=== PATIENT | female | born 1935 | race Caucasian/White ===

== ENCOUNTER 2017-08-07 21:18 | Emergency (ER) | payer MEDICARE ==
[2017-08-07] MEDS ORDERED: ONDANSETRON 4 MG/2 ML VIAL IVP STA (22:22)
[2017-08-07] MEDS ORDERED: SODIUM CHLORIDE 0.9% 1,000 ML IV STA (22:22)
[2017-08-07] MEDS ORDERED: PANTOPRAZOLE 40 MG/10 ML VIAL IVP STA (22:22)
[2017-08-07] MEDS ORDERED: SODIUM CHLORIDE 0.9% 500 ML IV STA (22:22)
[2017-08-07 22:38] LABS: Basophils % (A) 1 %; Eosinophils % (A) 1 %; HCT 35.2 % (34.0-46.0); HGB 11.7 gm/dL (11.4-16.0); Lymphocytes # (A) 0.9 k/uL (1.0-4.8); Lymphocytes % (A) 29 %; MCH 28.9 pg (25.0-35.0); MCHC 33.3 g/dL (31.0-37.0); MCV 86.9 fL (80.0-100.0); Mean Platelet Volume 7.9; Monocytes # (A) 0.2 k/uL (0-1.0); Monocytes % (A) 5 %; Neutrophils # (A) 1.9 k/uL (1.3-7.7); Neutrophils % (A) 62 %; Platelet Count 153 k/uL (150-450); RBC 4.05 m/uL (3.80-5.40); RDW 14.6 % (11.5-15.5)
[2017-08-07 22:42] LABS: Appearance,Urine Clear (Clear); Bilirubin,Urine Negative (Negative); Blood,Urine Negative (Negative); Color,Urine Colorless; Glucose,Urine (UA) Negative (Negative); Ketones,Urine Negative (Negative); Leukocyte Esterase,Urine Negative (Negative); Nitrite,Urine Negative (Negative); Protein,Urine Negative (Negative); Specific Gravity,Urine 1.002 (1.001-1.035); Urobilinogen,Urine <2.0 mg/dL (<2.0)
[2017-08-07 22:48] LABS: ALT 39 U/L (9-52); AST 28 U/L (14-36); Albumin 4.2 g/dL (3.5-5.0); Alkaline Phosphatase 90 U/L (38-126); Amylase 34 U/L (30-110); Anion Gap 10 mmol/L; Blood Urea Nitrogen 10 mg/dL (7-17); Carbon Dioxide 28 mmol/L (22-30); Chloride 95 mmol/L (98-107); Glucose 113 mg/dL (74-99); Lipase 57 U/L (23-300); Sodium 133 mmol/L (137-145); Total Bilirubin 0.6 mg/dL (0.2-1.3)
[2017-08-07 22:50] LABS: Potassium 4.2 mmol/L (3.5-5.1)
--- NOTE | 2017-08-07 23:16 | XR ---
EXAMINATION TYPE: XR abdomen 2V DATE OF EXAM: 08/07/2017 COMPARISON: NONE HISTORY: Abdominal pain TECHNIQUE: 3 views FINDINGS: There is no sign of intestinal obstruction or pneumoperitoneum. Fecal pattern is normal. Mansi ng bases are clear. There are clips from cholecystectomy. There is no sign of a mass. There is modera te osteoarthritis in the right hip joint. IMPRESSION: Nonacute abdomen.
--- NOTE | 2017-08-07 23:33 | ED ---
General Adult HPI - General Chief complaint: Abdominal Pain Stated complaint: Diarrhea Time Seen by Provider: 08/07/17 21:59 Source: patient, family, RN notes reviewed, old records reviewed Mode of arrival: ambulatory Limitations: no limitations - History of Present Illness Initial comments: Chief complaint and history of present illness this 82-year-old female who is admittedly anxious. She does have a history of irritable bowel syndrome. Lately she's been taking prunes make herself go. She has 2 complaints, she goes to often other times she feels like she has to go and she cannot go on her own. She also reports that she sneezed yesterday causing low back discomfort. Patient is able to control her muscles to release the urine. Patient also reports she's had slight nasal congestion no fever. - Related Data Home Medications Medication Instructions Recorded Confirmed ALPRAZolam [Xanax] 0.25 - 0.5 mg PO TID PRN 11/10/15 12/05/15 Acetaminophen Tab [Tylenol] 325 mg PO Q6H PRN 11/10/15 12/05/15 Arnicare Cream 1 applic TOPICAL TID PRN 11/10/15 12/05/15 Arnicare Dissolving Tab 1 tab PO BID PRN 11/10/15 12/05/15 Cholecalciferol [Vitamin D3] 5,000 unit PO DAILY 11/10/15 12/05/15 Dicyclomine HCl 10 mg PO BID 11/10/15 12/05/15 Multivitamin/Iron/Folic Acid 1 tab PO DAILY 11/10/15 12/05/15 [Centrum Complete Multivit Tab] Omeprazole 40 mg PO AC-BRKFST 11/10/15 12/05/15 Prevident 5000 Paste 1 applic PO HS 11/10/15 12/05/15 Vit C/E/Zn/Coppr/Lutein/Zeaxan 1 cap PO BID 11/10/15 12/05/15 [Preservision Areds 2 Softgel] cycloSPORINE [Restasis] 1 drop BOTH EYES BID 11/10/15 12/05/15 Clobetasol Propionate/Emoll 1 applic TOPICAL DAILY 12/05/15 12/05/15 [Temovate Emollient 0.05% Crm] Estrogens, Conjugated Cream 1 applic VAGINAL MOWEFR PRN 12/05/15 12/05/15 [Premarin Cream] L.acidoph,Paracasei, B.lactis 1 cap PO DAILY 12/05/15 12/05/15 [Probiotic] Nystatin/Triamcin 1 applic TOPICAL BID 12/05/15 12/05/15 [Nystatin-Triamcinolone Cream] Previous Rx's Medication Instructions Recorded Melatonin 3 mg PO HS tab 12/06/15 PARoxetine [Paxil] 10 mg PO DAILY #30 tab 12/06/15 cloNIDine 0.1 MG/24HR PATCH 1 patch TRANSDERM MO #10 patch 12/06/15 [Catapres-TTS] Allergies Allergy/AdvReac Type Severity Reaction Status Date / Time amlodipine besylate Allergy Unknown Verified 08/07/17 21:35 [From Norvasc] atorvastatin calcium Allergy Unknown Verified 08/07/17 21:35 [From Lipitor] citalopram hydrobromide Allergy Unknown Verified 08/07/17 21:35 [From Celexa] clonazepam [From Klonopin] Allergy Unknown Verified 08/07/17 21:35 lisinopril [From Prinivil] Allergy Unknown Verified 08/07/17 21:35 moxifloxacin HCl Allergy Unknown Verified 08/07/17 21:35 [From Avelox] Penicillins Allergy Unknown Verified 08/07/17 21:35 simvastatin Allergy Unknown Verified 08/07/17 21:35 Sulfa (Sulfonamide Allergy Unknown Verified 08/07/17 21:35 Antibiotics) Tetracyclines Allergy Unknown Verified 08/07/17 21:35 aspirin AdvReac Unknown Verified 08/07/17 21:35 muscle relaxors Allergy Unknown Uncoded 08/07/17 21:35 Review of Systems ROS Statement: Those systems with pertinent positive or pertinent negative responses have been documented in the HPI. You have systems. No headache or visual acuity changes. She has had some congestion. Denies fever. Denies any chest pain or shortness of breath. She denies abdominal cramping but she states that she has not been able to have a bowel movement but that alternates that with having loose stool. Patient states that she stands and walks he feels as though she has stool bearing down but when she tries to have a bowel movement she can't or doesn't. She has tried an enema at home. Nausea no vomiting. All systems were reviewed. 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 GERD, hypertension, osteoarthritis, vertigo, Sjogren's. Her surgeries include benign breast biopsy , cholecystectomy, partial hysterectomy, right shoulder knees arthroscopies. She's also had tonsillectomy. Family history of cancers include: Breast and bone. Patient is nonsmoker nondrinker. Multiple ALLERGIES as listed on the hard copy. ROS Other: All systems not noted in ROS Statement are negative. Past Medical History Past Medical History: Cancer, GERD/Reflux, Hypertension, Osteoarthritis (OA) Additional Past Medical History / Comment(s): vertigo, Sjogren's Syndrome, leaky valve, fibromyalgia, IBS, Trigeminal neuralgia,difficulty swallowing large pills, stress test done 12-04-15 CURRENTLY (12-05-15) HAS RASH ROEL LEGS ARMS STATED" ONLY THING DIFFERENT IS THAT SHE STARTED ON A PATCH FOR BP",pne vaccine few years ago not sure of date-dr office closed not able to verify date. History of Any Multi-Drug Resistant Organisms: None Reported Past Surgical History: Breast Surgery, Cholecystectomy, Hysterectomy, Orthopedic Surgery, Tonsillectomy Past Anesthesia/Blood Transfusion Reactions: No Reported Reaction, Motion Sickness Additional Past Anesthesia/Blood Transfusion Reaction / Comment(s): " a little goes a long way", clausterphobia Past Psychological History: Anxiety Smoking Status: Never smoker Past Alcohol Use History: None Reported Past Drug Use History: None Reported - Past Family History Mother Family Medical History: CVA/TIA Father Family Medical History: Congestive Heart Failure (CHF), Dementia General Exam - General Exam Comments Initial Comments: General: The patient is awake and alert, totally anxious because of health concerns. History of irritable bowel syndrome. Complains of both loose stool and difficulty having bowel movements at the same time. Mild nasal congestion and anxiety. Vital signs shows temperature 97.0 pulse 85 respiratory rate 20 pulse ox 90% room air blood pressure initially 183/95 this be repeated. Eye: Pupils are equal, round and reactive to light, extra-ocular movements are intact ; there is normal conjunctiva bilaterally. No signs of icterus. Ears, nose, mouth and throat: There are moist mucous membranes and no oral lesions. Signs of congestion. Neck: The neck is supple, there is no tenderness . Cardiovascular: There is a regular rate and rhythm. No murmur, rub or gallop is appreciated. Respiratory: Lungs are clear to auscultation, respirations are non-labored, breath sounds are equal. No wheezes, stridor, rales, or rhonchi. Gastrointestinal: Soft, non-distended, non-tender abdomen without masses or organomegaly noted. There is no rebound or guarding present. Bowel sounds are unremarkable. Examination done with the assistance of registered nurse to call. No stool or impaction in the rectum. Back: Neck musculoskeletal back pain. History of fibromyalgia Musculoskeletal: Normal ROM, no tenderness, There is no pedal edema. There is no calf tenderness or swelling. Sensation intact. Pulses equal bilaterally 2+. Neurological: No complaint of any focal or lateralizing findings. Skin: Skin is warm and dry and no rashes or lesions are noted. Psychiatric: History of anxiety. Limitations: no limitations Course Vital Signs 08/07/17 08/07/17 08/08/17 21:31 21:56 00:09 Temperature 97 F L 97.9 F Pulse Rate 78 85 84 Respiratory 20 20 18 Rate Blood Pressure 214/97 183/95 172/84 O2 Sat by Pulse 98 98 99 Oximetry Medical Decision Making - Medical Decision Making Medical decision making; this is a 82-year-old female here with a complaint of needing have a bowel movement and alternating with diarrhea. Patient also reports she coughed and strained her back. She is admittedly anxious. She's had diarrhea for approximately on-again off-again 5 days nausea no vomiting. She also complains of some congestion. Tray the abdomen was done reviewed by radiologist his impression is; there is no sign of intestinal obstruction or pneumoperitoneum. Fecal pattern is normal. Lung bases are clear. There are clips from cholecystectomy. There is no sign of a mass. There is moderate osteoarthritis in the right hip joint. As read by Dr. Nunez Was given a Therevac which she was not able to retain Moran. She'll be started on milk of magnesia this evening and told take it twice daily until effective. She states in the past when she tried magnesium citrate she just threw it up. - Lab Data Result diagrams: 08/07/17 21:50 08/07/17 21:50 Lab Results 08/07/17 08/07/17 08/07/17 Range/Units 21:50 21:50 21:50 WBC 3.0 L (3.8-10.6) k/uL RBC 4.05 (3.80-5.40) m/uL Hgb 11.7 (11.4-16.0) gm/dL Hct 35.2 (34.0-46.0) % MCV 86.9 (80.0-100.0) fL MCH 28.9 (25.0-35.0) pg MCHC 33.3 (31.0-37.0) g/dL RDW 14.6 (11.5-15.5) % Plt Count 153 (150-450) k/uL Neutrophils % 62 % Lymphocytes % 29 % Monocytes % 5 % Eosinophils % 1 % Basophils % 1 % Neutrophils # 1.9 (1.3-7.7) k/uL Lymphocytes # 0.9 L (1.0-4.8) k/uL Monocytes # 0.2 (0-1.0) k/uL Eosinophils # 0.0 (0-0.7) k/uL Basophils # 0.0 (0-0.2) k/uL Sodium 133 L (137-145) mmol/L Potassium 4.2 (3.5-5.1) mmol/L Chloride 95 L (98-107) mmol/L Carbon Dioxide 28 (22-30) mmol/L Anion Gap 10 mmol/L BUN 10 (7-17) mg/dL Creatinine 0.60 (0.52-1.04) mg/dL Est GFR (MDRD) Af Amer >60 (>60 ml/min/1.73 sqM) Est GFR (MDRD) Non-Af >60 (>60 ml/min/1.73 sqM) Glucose 113 H (74-99) mg/dL Plasma Lactic Acid Severiano 0.8 (0.7-2.0) mmol/L Calcium 9.0 (8.4-10.2) mg/dL Total Bilirubin 0.6 (0.2-1.3) mg/dL AST 28 (14-36) U/L ALT 39 (9-52) U/L Alkaline Phosphatase 90 (38-126) U/L Total Protein 7.0 (6.3-8.2) g/dL Albumin 4.2 (3.5-5.0) g/dL Amylase 34 (30-110) U/L Lipase 57 (23-300) U/L Urine Color Urine Appearance (Clear) Urine pH (5.0-8.0) Ur Specific [place] (1.001-1.035) Urine Protein (Negative) Urine Glucose (UA) (Negative) Urine Ketones (Negative) Urine Blood (Negative) Urine Nitrite (Negative) Urine Bilirubin (Negative) Urine Urobilinogen (<2.0) mg/dL Ur Leukocyte Esterase (Negative) 08/07/ Range/Units 22:30 WBC (3.8-10.6) k/uL RBC (3.80-5.40) m/uL Hgb (11.4-16.0) gm/dL Hct (34.0-46.0) % MCV (80.0-100.0) fL MCH (25.0-35.0) pg MCHC (31.0-37.0) g/dL RDW (11.5-15.5) % Plt Count (150-450) k/uL Neutrophils % % Lymphocytes % % Monocytes % % Eosinophils % % Basophils % % Neutrophils # (1.3-7.7) k/uL Lymphocytes # (1.0-4.8) k/uL Monocytes # (0-1.0) k/uL Eosinophils # (0-0.7) k/uL Basophils # (0-0.2) k/uL Sodium (137-145) mmol/L Potassium (3.5-5.1) mmol/L Chloride (98-107) mmol/L Carbon Dioxide (22-30) mmol/L Anion Gap mmol/L BUN (7-17) mg/dL Creatinine (0.52-1.04) mg/dL Est GFR (MDRD) Af Amer (>60 ml/min/1.73 sqM) Est GFR (MDRD) Non-Af (>60 ml/min/1.73 sqM) Glucose (74-99) mg/dL Plasma Lactic Acid Severiano (0.7-2.0) mmol/L Calcium (8.4-10.2) mg/dL Total Bilirubin (0.2-1.3) mg/dL AST (14-36) U/L ALT (9-52) U/L Alkaline Phosphatase (38-126) U/L Total Protein (6.3-8.2) g/dL Albumin (3.5-5.0) g/dL Amylase (30-110) U/L Lipase (23-300) U/L Urine Color Colorless Urine Appearance Clear (Clear) Urine pH 7.0 (5.0-8.0) Ur Specific [place] 1.002 (1.001-1.035) Urine Protein Negative (Negative) Urine Glucose (UA) Negative (Negative) Urine Ketones Negative (Negative) Urine Blood Negative (Negative) Urine Nitrite Negative (Negative) Urine Bilirubin Negative (Negative) Urine Urobilinogen <2.0 (<2.0) mg/dL Ur Leukocyte Esterase Negative (Negative) Disposition Clinical Impression: Irritable bowel syndrome with both constipation and diarrhea Disposition: HOME SELF-CARE Condition: Stable Instructions: Irritable Bowel Syndrome (ED), Nutrition Tips for Relief of Diarrhea (ED), Constipation (ED) Additional Instructions: Take milk of magnesia twice daily until effective. Increase fluid intake. Follow-up family physician Referrals: Sandro Rosen MD [Primary Care Provider] - 1-2 days Time of Disposition: 00:16
[2017-08-07] MEDS ORDERED: DOCUSATE 283 MG/5 ML ENEMA RECTAL STA (23:38)
[2017-08-08 00:09] VITALS: BP 172/84; PULSE 84; RESP 18; TEMP 97.9
[2017-08-08] MEDS ORDERED: MAGNESIUM HYDROXIDE 2,400 MG/10 ML CUP PO PRN (00:22)
== END 2017-08-08 00:40 | disposition home or self-care (01) ==
LOC: EC 21:18
DX: K58.2 Mixed irritable bowel syndrome (principal); M54.5 Low back pain; K21.9 Gastro-esophageal reflux disease without esophagitis; I10 Essential (primary) hypertension; M19.90 Unspecified osteoarthritis, unspecified site; F41.9 Anxiety disorder, unspecified; Z85.9 Personal history of malignant neoplasm, unspecified; Z79.899 Other long term (current) drug therapy; Z88.8 Allergy status to other drugs, medicaments and biological substances; Z88.0 Allergy status to penicillin; Z88.2 Allergy status to sulfonamides; Z88.6 Allergy status to analgesic agent
CPT/HCPCS: 36415; 80053; 82150; 83605; 83690; 85025; 81003; 87086; 74020; 99284; 96374; 96375; 96361 ×2; J2405; C9113

== ENCOUNTER → 2020-03-22 | Outpatient (CLI) | payer MEDICARE ==
[2020-03-22 13:44] LABS: ALT 26 U/L (4-34); AST 34 U/L (14-36); African American GFR (CKD) >90 (>60 ml/min/1.73 sqM); Albumin 4.3 g/dL (3.5-5.0); Alkaline Phosphatase 98 U/L (38-126); Anion Gap 8 mmol/L; Blood Urea Nitrogen 18 mg/dL (7-17); Calcium 9.1 mg/dL (8.4-10.2); Carbon Dioxide 27 mmol/L (22-30); Chloride 100 mmol/L (98-107); Glucose 141 mg/dL (74-99); Non-African American GFR(CKD) 83 (>60 ml/min/1.73 sqM); Potassium 4.4 mmol/L (3.5-5.1); Sodium 135 mmol/L (137-145); Total Bilirubin 0.5 mg/dL (0.2-1.3); Total Protein 6.7 g/dL (6.3-8.2)
--- NOTE | 2020-03-22 15:52 | FL ---
EXAMINATION TYPE: FL barium swallow w video DATE OF EXAM: 03/22/2020 MODIFIED BARIUM SWALLOW FLUOROSCOPY EXAM CLINICAL HISTORY: Dysphagia. TECHNIQUE: Notified barium swallow study is performed utilizing thin liquid barium, nectar thick liqu id barium, barium thick puree, and barium coated cracker. COMPARISON: None. FINDINGS: The oral and pharyngeal phases show satisfactory initiation and propagation with all modali ties tested. Normal mastication is seen with solid modalities tested. There is no evidence of penet ration or aspiration with any modality tested. No significant pharyngeal residue was appreciated. Total fluoroscopy time 1 minute 36 seconds. IMPRESSION: No evidence of penetration or aspiration. Please refer to speech therapist notes for fu rther details if necessary.
== END | disposition home or self-care (01) ==
LOC: RADFLMAIN 10:46
PROVIDERS: ATTEND Internal Medicine Gastroenterology
DX: R13.10 Dysphagia, unspecified (principal); R53.81 Other malaise
CPT/HCPCS: 74230; 80053; 82607

== ENCOUNTER → 2020-04-02 | Outpatient (CLI) | payer MEDICARE ==
--- NOTE | 2020-04-02 14:27 | CT ---
EXAMINATION TYPE: CT abdomen w con DATE OF EXAM: 04/02/2020 HISTORY: follow up pancreatic cyst CT DLP: 450mGycm Automated Exposure Control for Dose Reduction was Utilized. CONTRAST: CT scan of the abdomen is performed with oral water and with IV Contrast, patient injected with 100 m L of Isovue 300. Pancreas protocol. COMPARISON: MRI abdomen December 11, 2015. CT abdomen and pelvis April 17, 2020. FINDINGS: LUNG BASES: Stable 3 mm anterior right basilar nodule axial image 7. Superior to this 5 x 3 mm nodule axial image 1 was not included in field of view on prior study. Likely stable from 2011 CT axial beatriz ge 44 however. Postinflammatory etiology strongly favored. Mild left basilar linear scarring. LIVER/GB: There are 2 thin-walled cysts scattered throughout the liver that are stable. Cholecystecto my clips are redemonstrated. PANCREAS: Mild to moderate generalized fat replaced atrophy of the pancreas. No obvious solid or cyst ic mass or ductal dilatation on current study. SPLEEN: No significant abnormality is seen. ADRENALS: No significant abnormality is seen. KIDNEYS: There is stable exophytic 4.2 cm simple appearing thin-walled cyst mid pole level left kidne y anteriorly. Exophytic 1.1 cm thin-walled cyst lower pole right kidney coronal image 38 redemonstrat ed. Stable prominent extrarenal pelvises without new calyceal dilatation. BOWEL: Poor distention of bowel. No suspicious small or large bowel dilatation. Patient is little int ra-abdominal fat. LYMPH NODES: No greater than 1cm abdominal lymph nodes are appreciated. OSSEOUS STRUCTURES: Slight underlying levoconvex scoliotic curvature redemonstrated. Grade 1 anteroli sthesis L3 on L4 and L4-L5. Multilevel small posterior disc herniations mid to lower lumbar spine on sagittal images. OTHER: No significant additional abnormality is seen. IMPRESSION: Stable benign-appearing cystic change to the liver and kidneys. No obvious cystic change in the pancreas. No significant change from prior studies.
[2020-04-02 15:00] LABS: ALT 43 U/L (4-34); AST 40 U/L (14-36); African American GFR (CKD) >90 (>60 ml/min/1.73 sqM); Albumin 4.5 g/dL (3.5-5.0); Alkaline Phosphatase 106 U/L (38-126); Anion Gap 10 mmol/L; Blood Urea Nitrogen 17 mg/dL (7-17); Calcium 9.4 mg/dL (8.4-10.2); Carbon Dioxide 27 mmol/L (22-30); Chloride 100 mmol/L (98-107); Glucose 102 mg/dL (74-99); Non-African American GFR(CKD) 84 (>60 ml/min/1.73 sqM); Potassium 4.6 mmol/L (3.5-5.1); Sodium 137 mmol/L (137-145); Total Bilirubin 0.6 mg/dL (0.2-1.3); Total Protein 7.1 g/dL (6.3-8.2)
== END | disposition home or self-care (01) ==
LOC: RADCTMAIN 12:52
PROVIDERS: ATTEND Internal Medicine Gastroenterology
DX: K76.89 Other specified diseases of liver (principal); N28.1 Cyst of kidney, acquired
CPT/HCPCS: 80053; 82607; 74160; 36415; Q9967

== ENCOUNTER 2020-06-02 12:03 | Inpatient (IN) | payer MEDICARE ==
--- NOTE | 2020-06-02 12:42 | ED ---
SOB HPI - General Chief Complaint: Shortness of Breath Stated Complaint: sob coughing/numbness rt side face/arm Time Seen by Provider: 06/02/20 12:24 Source: patient, family, RN notes reviewed Mode of arrival: wheelchair Limitations: physical limitation - History of Present Illness Initial Comments: This is a 84-year-old female with a history of hypertension history of essential tremor fibromyalgia presents with complaints of shortness of breath and p eripheral edema the patient was seen 3 days ago and started on Lasix she has slight cough the cough is Somewhat Better She Still Have Exertional Dyspnea so Is Peripheral Edema. She's Had Increased Weakness from the Other Day. She Was Seen Yesterday by Her Ping Pong Table Assembler X-Ray Was Performed She Was Started on Antibiotics She Just Feels like She Is Getting Better. She also today complains some numbness the right side of her face and pain to the right side of her neck no focal weakness however. No other complaints or modifying factors. MD Complaint: shortness of breath, cough - Related Data Home Medications Medication Instructions Recorded Confirmed ALPRAZolam [Xanax] 0.25 - 0.5 mg PO TID PRN 11/10/15 12/05/15 Acetaminophen Tab [Tylenol] 325 mg PO Q6H PRN 11/10/15 12/05/15 Arnicare Cream 1 applic TOPICAL TID PRN 11/10/15 12/05/15 Arnicare Dissolving Tab 1 tab PO BID PRN 11/10/15 12/05/15 Cholecalciferol [Vitamin D3 (25 5,000 unit PO DAILY 11/10/15 12/05/15 Mcg = 1000 Iu)] Dicyclomine HCl 10 mg PO BID 11/10/15 12/05/15 Multivitamin/Iron/Folic Acid 1 tab PO DAILY 11/10/15 12/05/15 [Centrum Complete Multivit Tab] Omeprazole 40 mg PO AC-BRKFST 11/10/15 12/05/15 Prevident 5000 Paste 1 applic PO HS 11/10/15 12/05/15 Vit C/E/Zn/Coppr/Lutein/Zeaxan 1 cap PO BID 11/10/15 12/05/15 [Preservision Areds 2 Softgel] cycloSPORINE [Restasis] 1 drop BOTH EYES BID 11/10/15 12/05/15 Clobetasol Propionate/Emoll 1 applic TOPICAL DAILY 12/05/15 12/05/15 [Temovate Emollient 0.05% Crm] Estrogens, Conjugated Cream 1 applic VAGINAL MOWEFR PRN 12/05/15 12/05/15 [Premarin Cream] L.acidoph,Paracasei, B.lactis 1 cap PO DAILY 12/05/15 12/05/15 [Probiotic] Nystatin/Triamcin 1 applic TOPICAL BID 12/05/15 12/05/15 [Nystatin-Triamcinolone Cream] Previous Rx's Medication Instructions Recorded Melatonin 3 mg PO HS tab 12/06/15 PARoxetine [Paxil] 10 mg PO DAILY #30 tab 12/06/15 cloNIDine 0.1 MG/24HR PATCH 1 patch TRANSDERM MO #10 patch 12/06/15 [Catapres-TTS] Allergies Allergy/AdvReac Type Severity Reaction Status Date / Time amlodipine besylate Allergy Unknown Verified 06/02/20 12:16 [From Norvasc] atorvastatin calcium Allergy Unknown Verified 06/02/20 12:16 [From Lipitor] citalopram hydrobromide Allergy Unknown Verified 06/02/20 12:16 [From Celexa] clonazepam [From Klonopin] Allergy Unknown Verified 06/02/20 12:16 lisinopril [From Prinivil] Allergy Unknown Verified 06/02/20 12:16 moxifloxacin HCl Allergy Unknown Verified 06/02/20 12:16 [From Avelox] Penicillins Allergy Unknown Verified 06/02/20 12:16 simvastatin Allergy Unknown Verified 06/02/20 12:16 Sulfa (Sulfonamide Allergy Unknown Verified 06/02/20 12:16 Antibiotics) Tetracyclines Allergy Unknown Verified 06/02/20 12:16 aspirin AdvReac Unknown Verified 06/02/20 12:16 muscle relaxors Allergy Unknown Uncoded 06/02/20 12:16 Review of Systems ROS Statement: Those systems with pertinent positive or pertinent negative responses have been documented in the HPI. ROS Other: All systems not noted in ROS Statement are negative. Past Medical History Past Medical History: Cancer, GERD/Reflux, Hypertension, Osteoarthritis (OA) Additional Past Medical History / Comment(s): vertigo, Sjogren's Syndrome, leaky valve, fibromyalgia, IBS, Trigeminal neuralgia,difficulty swallowing large pills, stress test done 12-04-15 CURRENTLY (12-05-15) HAS RASH ROEL LEGS ARMS STATED" ONLY THING DIFFERENT IS THAT SHE STARTED ON A PATCH FOR BP",pne vaccine few years ago not sure of date-dr ascencio closed not able to verify date. History of Any Multi-Drug Resistant Organisms: None Reported Past Surgical History: Breast Surgery, Cholecystectomy, Hysterectomy, Orthopedic Surgery, Tonsillectomy Past Anesthesia/Blood Transfusion Reactions: No Reported Reaction, Motion Sickness Additional Past Anesthesia/Blood Transfusion Reaction / Comment(s): " a little goes a long way", clausterphobia Past Psychological History: Anxiety Smoking Status: Never smoker Past Alcohol Use History: None Reported Past Drug Use History: None Reported - Past Family History Mother Family Medical History: CVA/TIA Father Family Medical History: Congestive Heart Failure (CHF), Dementia General Exam - General Exam Comments Initial Comments: This is a well-developed asthenic appearing female who is awake alert oriented 3. Does demonstrate evidence of a essential tremor with head and extremity movements Limitations: physical limitation General appearance: alert, anxious Head exam: Present: atraumatic, normocephalic, normal inspection Eye exam: Present: normal appearance, PERRL, EOMI. Absent: scleral icterus, conjunctival injection, periorbital swelling ENT exam: Present: normal exam, mucous membranes moist Neck exam: Present: normal inspection, tenderness (Tenderness palpation on the right posterior lateral aspect of the neck musculature no spinous process tenderness.), full ROM, other (No stridor JVD or bruits). Absent: meningismus, lymphadenopathy Respiratory exam: Present: rales, rhonchi, decreased breath sounds, other (Basilar lung sounds more swelling right than the left). Absent: respiratory distress, wheezes, stridor Cardiovascular Exam: Present: irregular rhythm, other (Irregularly irregular heart rhythm with occasional extrasystoles noted). Absent: systolic murmur, diastolic murmur, rubs, gallop, clicks GI/Abdominal exam: Present: soft, normal bowel sounds. Absent: distended, tenderness, guarding, rebound, rigid Extremities exam: Present: full ROM, normal capillary refill, pedal edema. Absent: tenderness, joint swelling, calf tenderness Back exam: Present: normal inspection Neurological exam: Present: alert, oriented X3, CN II-XII intact Psychiatric exam: Present: normal affect, normal mood Skin exam: Present: warm, dry, intact, normal color. Absent: rash Course Vital Signs 06/02/20 06/02/20 06/02/20 12:11 13:00 13:02 Temperature 98.2 F Pulse Rate 56 L 88 84 Respiratory 18 20 18 Rate Blood Pressure 160/124 161/101 162/109 O2 Sat by Pulse 97 96 98 Oximetry 06/02/20 14:05 Temperature Pulse Rate Respiratory Rate Blood Pressure 144/98 O2 Sat by Pulse Oximetry Medical Decision Making - Medical Decision Making I did discuss findings with the patient family as well as with Dr. Altamirano patient be admitted with consultation to Dr. Michelle for CHF. He does state that she has been told not to go on blood thinners. - Lab Data Result diagrams: 06/02/20 12:44 06/02/20 12:44 Lab Results 06/02/20 06/02/20 06/02/20 Range/Units 12:44 12:44 12:44 WBC 5.3 (3.8-10.6) k/uL RBC 4.62 (3.80-5.40) m/uL Hgb 13.5 (11.4-16.0) gm/dL Hct 42.1 (34.0-46.0) % MCV 91.0 (80.0-100.0) fL MCH 29.1 (25.0-35.0) pg MCHC 32.0 (31.0-37.0) g/dL RDW 14.1 (11.5-15.5) % Plt Count 212 (150-450) k/uL Neutrophils % 76 % Lymphocytes % 15 % Monocytes % 6 % Eosinophils % 1 % Basophils % 0 % Neutrophils # 4.0 (1.3-7.7) k/uL Lymphocytes # 0.8 L (1.0-4.8) k/uL Monocytes # 0.3 (0-1.0) k/uL Eosinophils # 0.0 (0-0.7) k/uL Basophils # 0.0 (0-0.2) k/uL PT 10.5 (9.0-12.0) sec INR 1.0 (<1.2) APTT 23.3 (22.0-30.0) sec Sodium 134 L (137-145) mmol/L Potassium 4.0 (3.5-5.1) mmol/L Chloride 99 (98-107) mmol/L Carbon Dioxide 28 (22-30) mmol/L Anion Gap 7 mmol/L BUN 15 (7-17) mg/dL Creatinine 0.73 (0.52-1.04) mg/dL Est GFR (CKD-EPI)AfAm 88 (>60 ml/min/1.73 sqM) Est GFR (CKD-EPI)NonAf 77 (>60 ml/min/1.73 sqM) Glucose 115 H (74-99) mg/dL Plasma Lactic Acid Severiano (0.7-2.0) mmol/L Calcium 9.1 (8.4-10.2) mg/dL Magnesium 2.0 (1.6-2.3) mg/dL Total Bilirubin 0.8 (0.2-1.3) mg/dL AST 60 H (14-36) U/L ALT 93 H (4-34) U/L Alkaline Phosphatase 127 H (38-126) U/L Creatine Kinase 64 (30-135) U/L Troponin I (0.000-0.034) ng/mL NT-Pro-B Natriuret Pep pg/mL Total Protein 6.6 (6.3-8.2) g/dL Albumin 4.1 (3.5-5.0) g/dL Urine Color Urine Appearance (Clear) Urine pH (5.0-8.0) Ur Specific [place] (1.001-1.035) Urine Protein (Negative) Urine Glucose (UA) (Negative) Urine Ketones (Negative) Urine Blood (Negative) Urine Nitrite (Negative) Urine Bilirubin (Negative) Urine Urobilinogen (<2.0) mg/dL Ur Leukocyte Esterase (Negative) 06/02/20 06/02/20 06/02/20 Range/Units 12:44 12:44 12:44 WBC (3.8-10.6) k/uL RBC (3.80-5.40) m/uL Hgb (11.4-16.0) gm/dL Hct (34.0-46.0) % MCV (80.0-100.0) fL MCH (25.0-35.0) pg MCHC (31.0-37.0) g/dL RDW (11.5-15.5) % Plt Count (150-450) k/uL Neutrophils % % Lymphocytes % % Monocytes % % Eosinophils % % Basophils % % Neutrophils # (1.3-7.7) k/uL Lymphocytes # (1.0-4.8) k/uL Monocytes # (0-1.0) k/uL Eosinophils # (0-0.7) k/uL Basophils # (0-0.2) k/uL PT (9.0-12.0) sec INR (<1.2) APTT (22.0-30.0) sec Sodium (137-145) mmol/L Potassium (3.5-5.1) mmol/L Chloride (98-107) mmol/L Carbon Dioxide (22-30) mmol/L Anion Gap mmol/L BUN (7-17) mg/dL Creatinine (0.52-1.04) mg/dL Est GFR (CKD-EPI)AfAm (>60 ml/min/1.73 sqM) Est GFR (CKD-EPI)NonAf (>60 ml/min/1.73 sqM) Glucose (74-99) mg/dL Plasma Lactic Acid Severiano 1.3 (0.7-2.0) mmol/L Calcium (8.4-10.2) mg/dL Magnesium (1.6-2.3) mg/dL Total Bilirubin (0.2-1.3) mg/dL AST (14-36) U/L ALT (4-34) U/L Alkaline Phosphatase (38-126) U/L Creatine Kinase (30-135) U/L Troponin I <0.012 (0.000-0.034) ng/mL NT-Pro-B Natriuret Pep 2320 pg/mL Total Protein (6.3-8.2) g/dL Albumin (3.5-5.0) g/dL Urine Color Urine Appearance (Clear) Urine pH (5.0-8.0) Ur Specific [place] (1.001-1.035) Urine Protein (Negative) Urine Glucose (UA) (Negative) Urine Ketones (Negative) Urine Blood (Negative) Urine Nitrite (Negative) Urine Bilirubin (Negative) Urine Urobilinogen (<2.0) mg/dL Ur Leukocyte Esterase (Negative) 10/25/20 Range/Units 12:53 WBC (3.8-10.6) k/uL RBC (3.80-5.40) m/uL Hgb (11.4-16.0) gm/dL Hct (34.0-46.0) % MCV (80.0-100.0) fL MCH (25.0-35.0) pg MCHC (31.0-37.0) g/dL RDW (11.5-15.5) % Plt Count (150-450) k/uL Neutrophils % % Lymphocytes % % Monocytes % % Eosinophils % % Basophils % % Neutrophils # (1.3-7.7) k/uL Lymphocytes # (1.0-4.8) k/uL Monocytes # (0-1.0) k/uL Eosinophils # (0-0.7) k/uL Basophils # (0-0.2) k/uL PT (9.0-12.0) sec INR (<1.2) APTT (22.0-30.0) sec Sodium (137-145) mmol/L Potassium (3.5-5.1) mmol/L Chloride (98-107) mmol/L Carbon Dioxide (22-30) mmol/L Anion Gap mmol/L BUN (7-17) mg/dL Creatinine (0.52-1.04) mg/dL Est GFR (CKD-EPI)AfAm (>60 ml/min/1.73 sqM) Est GFR (CKD-EPI)NonAf (>60 ml/min/1.73 sqM) Glucose (74-99) mg/dL Plasma Lactic Acid Severiano (0.7-2.0) mmol/L Calcium (8.4-10.2) mg/dL Magnesium (1.6-2.3) mg/dL Total Bilirubin (0.2-1.3) mg/dL AST (14-36) U/L ALT (4-34) U/L Alkaline Phosphatase (38-126) U/L Creatine Kinase (30-135) U/L Troponin I (0.000-0.034) ng/mL NT-Pro-B Natriuret Pep pg/mL Total Protein (6.3-8.2) g/dL Albumin (3.5-5.0) g/dL Urine Color Colorless Urine Appearance Clear (Clear) Urine pH 7.0 (5.0-8.0) Ur Specific [place] 1.003 (1.001-1.035) Urine Protein Negative (Negative) Urine Glucose (UA) Negative (Negative) Urine Ketones Negative (Negative) Urine Blood Negative (Negative) Urine Nitrite Negative (Negative) Urine Bilirubin Negative (Negative) Urine Urobilinogen <2.0 (<2.0) mg/dL Ur Leukocyte Esterase Negative (Negative) - EKG Data -: EKG Interpreted by Me EKG Comments: Atrial flutter/fibrillation rate 98 QRS 84 QT since QTC 362/462 occasional PVCs, unifocal in nature - Radiology Data Radiology results: report reviewed (Imaging reviewed evidence of bilateral small pleural effusions with evidence of a right sided lower lobe infiltrate atelectasis versus other etiologies), image reviewed Critical Care Time Critical Care Time: Yes Total Critical Care Time: 31 Critical Care Time: 31 minutes critical care time which includes initial presentation with history physical labs x-rays several reevaluation the patient. Discussed with patient family as well as the admitting physician review of old charting was available admission orders neck mentation the above Disposition Clinical Impression: Congestive heart failure, Atrial fibrillation, Failure of outpatient treatment Disposition: ADMITTED IP TO THIS [facility] Condition: Fair Referrals: Sandro Rosen MD [Primary Care Provider] - 1-2 days
[2020-06-02 13:07] LABS: Appearance,Urine Clear (Clear); Bilirubin,Urine Negative (Negative); Blood,Urine Negative (Negative); Color,Urine Colorless; Glucose,Urine (UA) Negative (Negative); Ketones,Urine Negative (Negative); Leukocyte Esterase,Urine Negative (Negative); Nitrite,Urine Negative (Negative); Protein,Urine Negative (Negative); Specific Gravity,Urine 1.003 (1.001-1.035); Urobilinogen,Urine <2.0 mg/dL (<2.0)
[2020-06-02 13:07] LABS: Basophils % (A) 0 %; Eosinophils % (A) 1 %; HCT 42.1 % (34.0-46.0); HGB 13.5 gm/dL (11.4-16.0); Lymphocytes # (A) 0.8 k/uL (1.0-4.8); Lymphocytes % (A) 15 %; MCH 29.1 pg (25.0-35.0); Monocytes # (A) 0.3 k/uL (0-1.0); Monocytes % (A) 6 %; Neutrophils % (A) 76 %; Platelet Count 212 k/uL (150-450); RBC 4.62 m/uL (3.80-5.40); RDW 14.1 % (11.5-15.5); WBC 5.3 k/uL (3.8-10.6)
[2020-06-02 13:15] LABS: Albumin 4.1 g/dL (3.5-5.0); Calcium 9.1 mg/dL (8.4-10.2); Total Bilirubin 0.8 mg/dL (0.2-1.3); Total Protein 6.6 g/dL (6.3-8.2)
[2020-06-02 13:16] LABS: Partial Thromboplastin Time 23.3 sec (22.0-30.0); Prothrombin Time 10.5 sec (9.0-12.0)
--- NOTE | 2020-06-02 13:33 | XR ---
EXAMINATION TYPE: XR chest 2V DATE OF EXAM: 06/02/2020 COMPARISON: Chest x-ray December 05, 2015 HISTORY: Shortness of breath. TECHNIQUE: Frontal and lateral views of the chest are obtained. FINDINGS: There is chronic parenchymal changes with new small to tiny bilateral pleural effusions an d right greater than left bibasilar acute infiltrate and/or atelectasis. The cardiac silhouette size is stable and mildly enlarged with atherosclerotic aorta. Metallic anchors right humeral head level are redemonstrated. IMPRESSION: Chronic changes and cardiomegaly with new small to tiny bilateral pleural effusions and right greater than left bibasilar acute infiltrate and/or atelectasis.
[2020-06-02] MEDS ORDERED: FUROSEMIDE 10 MG/ML 4 ML VIAL IV STA (14:11)
[2020-06-02] MEDS ORDERED: ALPRAZolam 0.25 MG TAB PO PRN (14:15)
[2020-06-02] MEDS ORDERED: ACETAMINOPHEN TAB 325 MG TAB PO PRN (14:15)
[2020-06-02] MEDS ORDERED: FUROSEMIDE 10 MG/ML 4 ML VIAL IV SCH (14:15)
[2020-06-02 15:30] VITALS: BMI 23.0
--- NOTE | 2020-06-02 17:00 | P.HPIM ---
History of Present Illness H&P Date: 06/02/20 Chief Complaint: Shortness of breath This is a 84-year-old female with past medical history noted below who presented to the emergency room with shortness of breath. He said that her symptoms started last week and is being getting progressively worse. She's becoming dyspneic with minimal exertion. She was having a mild cough that is nonproductive. She denies any chest pain. She also reported worsening lower extremity edema. She was seen and evaluated by her wood planer in the office yesterday and was advised to take a small dose of Lasix as well as antibiotic wi th concerns about possible underlying pneumonia. Patient denies any significant cough. Patient was evaluated in the ER. Chest x-ray showed chronic changes with cardiomegaly and a small bilateral effusion. There was a questionable bibasilar atelectasis versus infiltrate. Otherwise patient does not have any fevers or chills. No leukocytosis. Review of Systems Review of system: 14 points review of systems were obtained and were negative except to what were mentioned in the HPI. Past Medical History Past Medical History: Cancer, GERD/Reflux, Hypertension, Osteoarthritis (OA) Additional Past Medical History / Comment(s): vertigo, Sjogren's Syndrome, leaky valve, fibromyalgia, IBS, Trigeminal neuralgia,difficulty swallowing large pills, stress test done 12-04-15 pne vaccine few years ago not sure of date-dr silva alan not able to verify date. History of Any Multi-Drug Resistant Organisms: None Reported Past Surgical History: Breast Surgery, Cholecystectomy, Hysterectomy, Orthopedic Surgery, Tonsillectomy Past Anesthesia/Blood Transfusion Reactions: No Reported Reaction, Motion Sickness Additional Past Anesthesia/Blood Transfusion Reaction / Comment(s): " a little goes a long way", clausterphobia Past Psychological History: Anxiety Smoking Status: Never smoker Past Alcohol Use History: None Reported Past Drug Use History: None Reported - Past Family History Mother Family Medical History: CVA/TIA Father Family Medical History: Congestive Heart Failure (CHF), Dementia Medications and Allergies Home Medications Medication Instructions Recorded Confirmed Type ALPRAZolam [Xanax] 0.125 mg PO TID@0900,1600,2200 11/10/15 06/02/20 History Cholecalciferol [Vitamin D3 (25 5,000 unit PO DAILY@0900 11/10/15 06/02/20 History Mcg = 1000 Iu)] Dicyclomine HCl 10 mg PO BID PRN 11/10/15 06/02/20 History Omeprazole 40 mg PO AC-BRKFST 11/10/15 06/02/20 History Vit C/E/Zn/Coppr/Lutein/Zeaxan 1 cap PO BID@0900,1800 11/10/15 06/02/20 History [Preservision Areds 2 Softgel] L.acidoph,Paracasei, B.lactis 1 cap PO BID@0900,1800 12/05/15 06/02/20 History [Probiotic] Ascorbic Acid [Vitamin C] 500 mg PO DAILY@1600 06/02/20 06/02/20 History Azithromycin [Zithromax Z-pack (6 See Taper PO DAILY 06/02/20 06/02/20 History tabs)] Calcium Citrate 250 mg PO BID@0900,1800 06/02/20 06/02/20 History Calm Magnesium Carbonate 41mg 1 scoop PO BID@0900,1800 06/02/20 06/02/20 History Powder Furosemide [Lasix] 10 mg PO DAILY@0900 06/02/20 06/02/20 History Jennifer Supplement 150mg(10mg 1 tab PO BID@0900,1800 06/02/20 06/02/20 History Niacinamide W/10mg Inositol) Meclizine [Antivert] 6.25 mg PO BID PRN 06/02/20 06/02/20 History Propylene Glycol/Peg 400/Pf 1 drop BOTH EYES QID PRN 06/02/20 06/02/20 History [Systane 0.3-0.4% Eye Drops] Turmeric/Turmeric Root Extract 1 cap PO DAILY@0900 06/02/20 06/02/20 History [Turmeric 450-50 mg Capsule] Vitamin B Complex 1 cap PO DAILY@0900 06/02/20 06/02/20 History cloNIDine 0.1 MG/24HR PATCH 1 patch TRANSDERM TH 06/02/20 06/02/20 History [Catapres-TTS] cycloSPORINE 0.05% OPHTH SOLN 1 drop BOTH EYES DAILY@0900 06/02/20 06/02/20 History [Restasis] Allergies Allergy/AdvReac Type Severity Reaction Status Date / Time amlodipine besylate Allergy Unknown Verified 06/02/20 12:16 [From Norvasc] atorvastatin calcium Allergy Unknown Verified 06/02/20 12:16 [From Lipitor] citalopram hydrobromide Allergy Unknown Verified 06/02/20 12:16 [From Celexa] clonazepam [From Klonopin] Allergy Unknown Verified 06/02/20 12:16 lisinopril [From Prinivil] Allergy Unknown Verified 06/02/20 12:16 moxifloxacin HCl Allergy Unknown Verified 06/02/20 12:16 [From Avelox] Penicillins Allergy Unknown Verified 06/02/20 12:16 simvastatin Allergy Unknown Verified 06/02/20 12:16 Sulfa (Sulfonamide Allergy Unknown Verified 06/02/20 12:16 Antibiotics) Tetracyclines Allergy Unknown Verified 06/02/20 12:16 aspirin AdvReac Unknown Verified 06/02/20 12:16 muscle relaxors Allergy Unknown Uncoded 06/02/20 12:16 Physical Exam Vitals: Vital Signs Temp Pulse Pulse Resp BP BP Pulse Ox 06/02/20 15:02 97.9 F 89 18 145/96 96 06/02/20 14:58 96.4 F L 80 18 127/98 96 06/02/20 14:05 144/98 06/02/20 14:00 87 18 144/98 96 06/02/20 13:02 84 18 162/109 98 06/02/20 13:00 88 20 161/101 96 06/02/20 12:11 98.2 F 56 L 18 160/124 97 Intake and Output 06/02/20 06/02/20 06/02/20 06:59 14:59 22:59 Other: Weight 58.967 kg 58.967 kg General: The patient is awake and alert, in no distress Eye: there is normal conjunctiva bilaterally. Neck: The neck is supple, there is no JVD. Cardiovascular: Normal S1-S2, no S3-S4, no murmurs. Respiratory: Lungs clear to auscultation bilaterally Gastrointestinal: Abdomen is soft, nontender Musculoskeletal: There is no pedal edema. Neurological:. Speech is normal. Skin: Skin is warm and dry Results CBC & Chem 7: 06/02/20 12:44 06/02/20 12:44 Labs: Abnormal Lab Results - Last 24 Hours (Table) 06/02/20 06/02/20 Range/Units 12:44 12:44 Lymphocytes # 0.8 L (1.0-4.8) k/uL Sodium 134 L (137-145) mmol/L Glucose 115 H (74-99) mg/dL AST 60 H (14-36) U/L ALT 93 H (4-34) U/L Alkaline Phosphatase 127 H (38-126) U/L Thrombosis Risk Factor Assmnt - Choose All That Apply Each Factor Represents 1 point: Heart failure (<1month), Swollen legs (current) Each Risk Factor Represents 3 Points: Age 75 years or older Thrombosis Risk Factor Assessment Total Risk Factor Score: 5 Thrombosis Risk Factor Assessment Level: High Risk Assessment and Plan Assessment: 1. Progressive dyspnea, probably multifactorial. Need to rule out interstitial lung disease. I will consult pulmonology for further evaluation. Pneumonia appears to be less likely given her clinical presentation. I would check pro calcitonin. 2. Acute diastolic heart failure exacerbation, mild. BNP only slightly elevated. No significant fluid overloaded clinically. We will continue with IV Lasix 20 mg twice daily. Echocardiogram done at cardiology office recently showed preserved ejection fraction of 55%. 3. Chronic atrial fibrillation, recently diagnosed. Not on anticoagulation given history of bleeding. Risk and benefits of anticoagulation discussed with patient and her daughter. Patient refused any form of anticoagulation or aspirin. Further discussion with cardiology. 4. Chronic medical problems, essential hypertension, Sjogren syndrome, GERD, anxiety, fibromyalgia, and history of IBS, stable continue home medication 5. DVT prophylaxis with SCD The patient is admitted with an anticipated greater than 2 midnight stay for evaluation of the medical problems noted above Discussed with: Patient and nursing staff Anticipated discharge date: To be determined based on clinical course Anticipated discharge place: home A total of 45 minutes was spent on the care of this complex patient more than 50% of the time was spent in counseling and care coordination.
[2020-06-02] MEDS: DICYCLOMINE 10 MG CAP PO SCH (20:01)
[2020-06-02] MEDS: FUROSEMIDE 10 MG/ML 2 ML VIAL IV SCH (20:09)
[2020-06-02] MEDS: cycloSPORINE 0.05% OPHTH 0.4 ML DROPERETTE BOTH EYES SCH (22:51)
[2020-06-02] MEDS: VIT A,C & E-LUTEIN-MINERALS 1 EACH TAB PO SCH ×2 (22:51→22:59)
[2020-06-02] MEDS: MELATONIN 3 MG TABLET PO SCH (22:51)
[2020-06-03] MEDS: PANTOPRAZOLE 40 MG TABLET PO SCH (06:21)
[2020-06-03 08:20] LABS: African American GFR (CKD) >90 (>60 ml/min/1.73 sqM); Anion Gap 4 mmol/L; Blood Urea Nitrogen 11 mg/dL (7-17); Calcium 8.6 mg/dL (8.4-10.2); Carbon Dioxide 32 mmol/L (22-30); Chloride 99 mmol/L (98-107); Glucose 110 mg/dL (74-99); Magnesium 1.9 mg/dL (1.6-2.3); Non-African American GFR(CKD) 82 (>60 ml/min/1.73 sqM); Potassium 3.8 mmol/L (3.5-5.1); Sodium 135 mmol/L (137-145)
[2020-06-03] MEDS ORDERED: MECLIZINE 12.5 MG TAB PO PRN (08:56)
[2020-06-03] MEDS ORDERED: cloNIDine 0.1 MG/24HR PATCH TRANSDERM SCH (09:00)
[2020-06-03] MEDS: AZITHROMYCIN 250 MG TAB PO SCH (09:54)
[2020-06-03] MEDS: DICYCLOMINE 10 MG CAP PO SCH ×3 (09:54→20:05)
[2020-06-03] MEDS: MULTIVITAMINS, THERA 1 EACH TAB PO SCH (09:54)
[2020-06-03] MEDS: PARoxetine 10 MG TAB PO SCH ×2 (09:54→10:19)
[2020-06-03] MEDS: CHOLECALCIFEROL 1,000 UNIT TAB PO SCH (09:54)
[2020-06-03] MEDS: cycloSPORINE 0.05% OPHTH 0.4 ML DROPERETTE BOTH EYES SCH ×2 (09:55→20:05)
[2020-06-03] MEDS: ALPRAZolam 0.25 MG TAB PO PRN ×3 (09:56→22:51)
[2020-06-03] MEDS: FUROSEMIDE 10 MG/ML 2 ML VIAL IV SCH ×2 (09:58→10:20)
[2020-06-03] MEDS: VIT A,C & E-LUTEIN-MINERALS 1 EACH TAB PO SCH ×2 (09:59→20:05)
[2020-06-03] MEDS: CLOBETASOL PROP 0.05% CR 15GM TOPICAL SCH (09:59)
--- NOTE | 2020-06-03 10:16 | P.PN ---
Subjective Progress Note Date: 06/03/20 (ebony charting seen at 0830) Principal diagnosis: shortness of breath Patient is 84-year-old female with a history of chronic atrial fibrillation recently diagnosed, Sjogren's syndrome, fibromyalgia, IBS, and trigeminal neuralgia who presented to the emergency department secondary to increasing shortness of breath. Patient was seen by Dr. Antonio in the cardiology office one day prior to admission and was started on Lasix for possible congestive heart failure. He asked her to undergo a chest x-ray which was completed and the physician at urgent care subsequently started her on an antibiotic for possible pneumonia versus fluid overload. On arrival to the emergency de partment her vital signs are within normal limits. She was bradycardic with a pulse of 56, respirations 18, blood pressure 160/124, and she was satting 96% on room air. Chest x-ray showed chronic changes and cardiomegaly with a small Tylenol and bilateral pleural effusions right greater than left with possible acute infiltrate. Laboratory analysis today showed a normal white blood cell count 5.3, lymphocytes 0.8., Sodium 134, glucose 1:15, AST 60, ALT 93, alkaline phosphatase 127, BNP 2320, troponin negative at 0.01. She was diagnosed with acute exacerbation of diastolic congestive heart failure started on IV Lasix. Cardiology was consulted. She was admitted to the telemetry floor. Discussion was had about benefits and risk of anticoagulation, however patient does not desire to be on anticoagulation at this time. She states that she has many adverse reactions to medications. Patient seen and examined at bedside. She reports that she had an episode before breakfast where she felt so weak she could not lift her arm to feed herself. She states she was able to get some aches down but no Armenian toast. She felt some congestion in her chest at that point in time that was left-sided. She did not feel acutely short of breath. She states she's been having these episodes prior to breakfast and sometimes prior to all meals. She states her appetite is somewhat diminished. She is concerned about not being able to swallow her vitamin pills. Like to take her own from home which she stated was acceptable. Objective - Vital Signs Vital signs: Vital Signs Temp 97.9 F 06/03/20 03:52 Pulse 78 06/03/20 03:53 Resp 16 06/03/20 03:53 BP 134/80 06/03/20 03:52 Pulse Ox 97 06/03/20 03:52 Intake & Output 06/02/20 06/03/20 06/03/20 18:59 06:59 18:59 Intake Total 300 100 240 Output Total 200 2120 Balance 100 -2019 240 Weight 58.2 kg Intake: Oral 300 100 240 Output: Urine 200 2120 Other: Voiding Method Toilet Bedside Commode # Voids 3 1 # Bowel Movements 1 1 - Exam General: Frail appearing, no distress, appears at stated age, Kyphosis Derm: warm, dry Head: atraumatic, normocephalic, symmetric Eyes: EOMI, no lid lag, anicteric sclera Mouth: no lip lesion, mucus membranes moist Cardiovascular: S1S2 irreg, no murmur, positive posterior tibial pulse bilateral, Lungs: Ronchi right base, no accessory muscle use Abdominal: soft, nontender to palpation, no guarding, no appreciable organomegaly Ext: no gross muscle atrophy, no edema, no contractures Neuro: CN II-XI grossly intact, no focal neuro deficits, Tremor of neck and left hand with vocal tremor Psych: Alert, oriented, appropriate affect - Labs CBC & Chem 7: 06/02/20 12:44 06/03/20 07:26 Labs: Abnormal Lab Results - Last 24 Hours (Table) 06/02/20 06/02/20 06/03/20 Range/Units 12:44 12:44 07:26 Lymphocytes # 0.8 L (1.0-4.8) k/uL Sodium 134 L 135 L (137-145) mmol/L Carbon Dioxide 32 H (22-30) mmol/L Glucose 115 H 110 H (74-99) mg/dL AST 60 H (14-36) U/L ALT 93 H (4-34) U/L Alkaline Phosphatase 127 H (38-126) U/L Assessment and Plan Assessment: Acute exacerbation of diastolic CHF - Continue with lasix - await cardio recs - not on ACEI or BB and no indication to start at this time - check TSH Right sided pleural effusion vs infiltrate - repeat CXR in AM - Await procalcitonin - Clinically doubt PNA await procalcitonin and continue zithromax until this is resulted Chronic atrial fibrillation - rate controlled - Not on rate controlling medications - tele - Patient does not telemetry HTN, controlled - continue with catapres patch - follow BP Anxiety - resume home xanax dose Chronic: Sjogren syndrome GERD IBS Fibromyalgia DVT prophylaxis: SCDs Discussed with: Patient, nursing Anticipated discharge: in AM Anticipated discharge place: home A total of 35 minutes was spent on the care of this complex patient more than 50% of the time was spent in counseling and care coordination.
[2020-06-03] MEDS: FUROSEMIDE 20 MG TAB PO SCH (10:18)
[2020-06-03] MEDS: METOPROLOL TARTRATE 25 MG TAB PO SCH ×2 (10:18→20:05)
[2020-06-03] MEDS: APIXABAN 2.5 MG TABLET PO SCH ×2 (10:18→20:05)
[2020-06-03 12:16] LABS: Glucose,Whole Blood 148 mg/dL (75-99)
--- NOTE | 2020-06-03 12:19 | P.CRDCN ---
History of Present Illness History of present illness: HISTORY OF PRESENTING ILLNESS This is a pleasant 84-year-old female past medical history significant for hypertension, dyslipidemia, valvular heart disease and fibromyalgia. She fo llows in the office with Dr. Antonio. We have been asked to see in consultation for shortness of breath. She saw Dr. Antonio in the office Wednesday and was given a 48 Holter monitor for evaluation of possible arrhythmia given her symptoms of shortness of breath and anxiety. She states she was feeling ok during the day Wednesday but after dinner she started feeling more short of breath and was getting scared that she would stop breathing. She was recently in an urgent care and started on PO zithromax for suspected pneumonia but has not noticed an improvement in her symptoms since taking. Currently she is in atrial fibrillation with predominantly controlled heart rates. This is a new diagnosis for the patient. She denies chest pain, palpitations, dizziness or syncope. She was started on IV Lasix in the emergency department. She underwent an echocardiogram in the office 05/18/2020 revealing preserved LV systolic function with ejection fraction 55%, severely dilated left atrium, mildly dilated right atrium, 3-4+ mitral regurgitation she is posteriorly directed with mild myxomatous degeneration, mild aortic regurgitation, moderate tricuspid regurgitation with an RVSP of 53 mmHg. DIAGNOSTICS EKG reveals atrial fibrillation heart rate 98. Chest xray small to tiny bilateral pleural effusions right greater than left. Laboratory reviewed, CBC unremarkable, sodium 135, potassium 3.8, creatinine 0.67, magnesium 2.0, cardiac enzymes negative 1, NT proBNP 2320. Current cardiac medications include Lasix 10 mg daily and clonidine 0.1 mg patch. REVIEW OF SYSTEMS At the time of my exam: CONSTITUTIONAL: Denies fever or chills. CARDIOVASCULAR: Denies chest pain, shortness of breath, orthopnea, PND or palpitations. RESPIRATORY: Denies cough. GASTROINTESTINAL: Denies abdominal pain, diarrhea, constipation, nausea or vomiting. MUSCULOSKELETAL: Denies myalgias. NEUROLOGIC: Denies numbness, tingling or weakness. ENDOCRINE: Denies fatigue, weight change, polydipsia or polyurina. GENITOURINARY: Denies burning, hematuria or urgency with micturation. HEMATOLOGIC: Denies history of anemia or bleeding. PHYSICAL EXAMINATION Blood pressure 138/92 heart rate 79 afebrile and maintaining oxygen saturation on nasal cannula . CONSTITUTIONAL: No apparent distress. HEENT: Head is normocephalic. Pupils are equal, round. Sclerae anicteric. Mucous membranes of the mouth are moist. No JVD. No carotid bruit. CHEST EXAMINATION: Lungs are clear to auscultation. No chest wall tenderness is noted on palpation or with deep breathing. HEART EXAMINATION: Irregular rate and rhythm. S1, S2 heard. Systolic ejection murmur at the apex, no gallops or rub. ABDOMEN: Soft, nontender. Positive bowel sounds. EXTREMITIES: 2+ peripheral pulses, no lower extremity edema and no calf tenderness. NEUROLOGIC EXAMINATION: Patient is awake, alert and oriented x3. ASSESSMENT New onset paroxysmal atrial fibrillation Hypertension Dyslipidemia Valvular heart disease, mitral regurgitation and tricuspid regurgitation Pulmonary hypertension PLAN Lengthy discussion had with the patient regarding thromboembolic protection. She is agreeable to taking Eliquis 2.5 mg twice a day. We will send a prescription to the pharmacy and asked the foster care case manager to check her cost. Discontinue IV Lasix and initiate 20 mg by mouth daily. Initiate metoprolol 25 mg twice a day for rate control. Further recommendations to follow based on clinical course. Thank you kindly for this consultation. Nurse Practitioner note has been reviewed, I agree with a documented findings and plan of care. Patient was seen and examined. Past Medical History Past Medical History: Cancer, GERD/Reflux, Hypertension, Osteoarthritis (OA) Additional Past Medical History / Comment(s): vertigo, Sjogren's Syndrome, leaky valve, fibromyalgia, IBS, Trigeminal neuralgia,difficulty swallowing large pills, stress test done 12-04-15 pne vaccine few years ago not sure of date-dr office closed not able to verify date. History of Any Multi-Drug Resistant Organisms: None Reported Past Surgical History: Breast Surgery, Cholecystectomy, Hysterectomy, Orthopedic Surgery, Tonsillectomy Past Anesthesia/Blood Transfusion Reactions: No Reported Reaction, Motion Sickness Additional Past Anesthesia/Blood Transfusion Reaction / Comment(s): " a little goes a long way", clausterphobia Past Psychological History: Anxiety Smoking Status: Never smoker Past Alcohol Use History: None Reported Past Drug Use History: None Reported - Past Family History Mother Family Medical History: CVA/TIA Father Family Medical History: Congestive Heart Failure (CHF), Dementia Medications and Allergies Home Medications Medication Instructions Recorded Confirmed Type ALPRAZolam [Xanax] 0.125 mg PO TID@0900,1600,2200 11/10/15 06/02/20 History Cholecalciferol [Vitamin D3 (25 5,000 unit PO DAILY@0900 11/10/15 06/02/20 History Mcg = 1000 Iu)] Dicyclomine HCl 10 mg PO BID PRN 11/10/15 06/02/20 History Omeprazole 40 mg PO AC-BRKFST 11/10/15 06/02/20 History Vit C/E/Zn/Coppr/Lutein/Zeaxan 1 cap PO BID@0900,1800 11/10/15 06/02/20 History [Preservision Areds 2 Softgel] L.acidoph,Paracasei, B.lactis 1 cap PO BID@0900,1800 12/05/15 06/02/20 History [Probiotic] Ascorbic Acid [Vitamin C] 500 mg PO DAILY@1600 06/02/20 06/02/20 History Azithromycin [Zithromax Z-pack (6 See Taper PO DAILY 06/02/20 06/02/20 History tabs)] Calcium Citrate 250 mg PO BID@0900,1800 06/02/20 06/02/20 History Calm Magnesium Carbonate 41mg 1 scoop PO BID@0900,1800 06/02/20 06/02/20 History Powder Furosemide [Lasix] 10 mg PO DAILY@0900 06/02/20 06/02/20 History Jennifer Supplement 150mg(10mg 1 tab PO BID@0900,1800 06/02/20 06/02/20 History Niacinamide W/10mg Inositol) Meclizine [Antivert] 6.25 mg PO BID PRN 06/02/20 06/02/20 History Propylene Glycol/Peg 400/Pf 1 drop BOTH EYES QID PRN 06/02/20 06/02/20 History [Systane 0.3-0.4% Eye Drops] Turmeric/Turmeric Root Extract 1 cap PO DAILY@0900 06/02/20 06/02/20 History [Turmeric 450-50 mg Capsule] Vitamin B Complex 1 cap PO DAILY@0900 06/02/20 06/02/20 History cloNIDine 0.1 MG/24HR PATCH 1 patch TRANSDERM TH 06/02/20 06/02/20 History [Catapres-TTS] cycloSPORINE 0.05% OPHTH SOLN 1 drop BOTH EYES DAILY@0900 06/02/20 06/02/20 History [Restasis] Apixaban [Eliquis] 2.5 mg PO BID #60 tab 06/03/20 Rx Allergies Allergy/AdvReac Type Severity Reaction Status Date / Time amlodipine besylate Allergy Unknown Verified 06/02/20 12:16 [From Norvasc] atorvastatin calcium Allergy Unknown Verified 06/02/20 12:16 [From Lipitor] citalopram hydrobromide Allergy Unknown Verified 06/02/20 12:16 [From Celexa] clonazepam [From Klonopin] Allergy Unknown Verified 06/02/20 12:16 lisinopril [From Prinivil] Allergy Unknown Verified 06/02/20 12:16 moxifloxacin HCl Allergy Unknown Verified 06/02/20 12:16 [From Avelox] Penicillins Allergy Unknown Verified 06/02/20 12:16 simvastatin Allergy Unknown Verified 06/02/20 12:16 Sulfa (Sulfonamide Allergy Unknown Verified 06/02/20 12:16 Antibiotics) Tetracyclines Allergy Unknown Verified 06/02/20 12:16 aspirin AdvReac Unknown Verified 06/02/20 12:16 muscle relaxors Allergy Unknown Uncoded 06/02/20 12:16 Physical Exam Vitals: Vital Signs Temp Pulse Pulse Resp BP BP Pulse Ox 06/03/20 08:20 97.9 F 79 20 138/92 97 06/03/20 03:53 78 16 06/03/20 03:52 97.9 F 78 16 134/80 97 06/03/20 00:00 64 18 06/02/20 23:36 146/82 06/02/20 23:00 97.8 F 64 18 171/119 99 06/02/20 20:00 97.6 F 58 L 18 165/98 97 06/02/20 17:09 20 98 06/02/20 17:08 22 91 L 06/02/20 16:00 87 18 140/80 95 06/02/20 15:02 97.9 F 89 18 145/96 96 06/02/20 14:58 96.4 F L 80 18 127/98 96 06/02/20 14:05 144/98 06/02/20 14:00 87 18 144/98 96 06/02/20 13:02 84 18 162/109 98 06/02/20 13:00 88 20 161/101 96 06/02/20 12:11 98.2 F 56 L 18 160/124 97 Intake and Output 06/02/20 06/03/20 06/03/20 22:59 06:59 14:59 Intake Total 400 240 Output Total 640 1480 Balance -240 -1480 240 Intake: Oral 400 240 Output: Urine 640 1480 Other: Voiding Method Bedside Commode Bedside Commode # Voids 3 3 1 # Bowel Movements 1 1 Weight 58.2 kg Results 06/02/20 12:44 06/03/20 07:26 Cardiac Enzymes 06/02/20 06/02/20 Range/Units 12:44 12:44 AST 60 H (14-36) U/L Troponin I <0.012 (0.000-0.034) ng/mL Coagulation 06/02/20 Range/Units 12:44 PT 10.5 (9.0-12.0) sec APTT 23.3 (22.0-30.0) sec CBC 06/02/20 Range/Units 12:44 WBC 5.3 (3.8-10.6) k/uL RBC 4.62 (3.80-5.40) m/uL Hgb 13.5 (11.4-16.0) gm/dL Hct 42.1 (34.0-46.0) % Plt Count 212 (150-450) k/uL Comprehensive Metabolic Panel 06/02/20 06/03/20 Range/Units 12:44 07:26 Sodium 134 L 135 L (137-145) mmol/L Potassium 4.0 3.8 (3.5-5.1) mmol/L Chloride 99 99 (98-107) mmol/L Carbon Dioxide 28 32 H (22-30) mmol/L BUN 15 11 (7-17) mg/dL Creatinine 0.73 0.67 (0.52-1.04) mg/dL Glucose 115 H 110 H (74-99) mg/dL Calcium 9.1 8.6 (8.4-10.2) mg/dL AST 60 H (14-36) U/L ALT 93 H (4-34) U/L Alkaline Phosphatase 127 H (38-126) U/L Total Protein 6.6 (6.3-8.2) g/dL Albumin 4.1 (3.5-5.0) g/dL Current Medications Generic Name Dose Route Start Last Admin Trade Name Freq PRN Reason Stop Dose Admin Acetaminophen 325 mg 06/02/20 14:15 Acetaminophen Tab 325 Mg Tab PO Q6H PRN Pain Alprazolam 0.125 mg 06/03/20 08:51 06/03/20 09:56 Alprazolam 0.25 Mg Tab PO 0.125 mg TID PRN Administration Anxiety Apixaban 2.5 mg 06/03/20 10:15 06/03/20 10:18 Apixaban 2.5 Mg Tablet PO 2.5 mg BID NJ Administration Azithromycin 250 mg 06/03/20 09:00 06/03/20 09:54 Azithromycin 250 Mg Tab PO 250 mg Q24HR NJ Administration Cholecalciferol 5,000 unit 06/03/20 09:00 06/03/20 09:54 Cholecalciferol 1,000 Unit Tab PO 5,000 unit DAILY NJ Administration Clobetasol Propionate 1 applic 06/03/20 09:00 06/03/20 09:59 Clobetasol Prop 0.05% Cr 15gm TOPICAL Not Given DAILY NJ Clonidine HCl 1 patch 06/06/20 09:00 Clonidine 0.1 Mg/24hr Patch TRANSDERM Q7D NJ Cyclosporine 1 drops 06/02/20 21:00 06/03/20 09:55 Cyclosporine 0.05% Ophth 0.4 Ml Droperette BOTH EYES 1 drops BID NJ Administration Dicyclomine HCl 10 mg 06/02/20 21:00 06/03/20 10:19 Dicyclomine 10 Mg Cap PO Not Given BID NJ Furosemide 20 mg 06/03/20 10:15 06/03/20 10:18 Furosemide 20 Mg Tab PO 20 mg DAILY NJ Administration Meclizine HCl 6.25 mg 06/03/20 08:56 Meclizine 12.5 Mg Tab PO BID PRN Vertigo Melatonin 3 mg 06/02/20 21:00 06/02/20 22:51 Melatonin 3 Mg Tablet PO 3 mg HS NJ Administration Metoprolol Tartrate 25 mg 06/03/20 10:15 06/03/20 10:18 Metoprolol Tartrate 25 Mg Tab PO 25 mg BID NJ Administration Multivitamins 1 each 06/03/20 09:00 06/03/20 09:54 Multivitamins, Thera 1 Each Tab PO 1 each DAILY NJ Administration Multivitamins/Minerals 1 each 06/02/20 21:00 06/03/20 09:59 Vit A,C & K-Yogfye-Jchfzncb 1 Each Tab PO Not Given BID NJ Pantoprazole Sodium 40 mg 06/03/20 07:30 06/03/20 06:21 Pantoprazole 40 Mg Tablet PO 40 mg AC-BRKFST NJ Administration Paroxetine HCl 10 mg 06/03/20 09:00 06/03/20 10:19 Paroxetine 10 Mg Tab PO Not Given DAILY NJ Intake and Output 06/02/20 06/03/20 06/03/20 22:59 06:59 14:59 Intake Total 400 240 Output Total 640 1480 Balance -240 -1480 240 Intake: Oral 400 240 Output: Urine 640 1480 Other: Voiding Method Bedside Commode Bedside Commode # Voids 3 3 1 # Bowel Movements 1 1 Weight 58.2 kg 06/02/20 12:44 06/03/20 07:26
--- NOTE | 2020-06-03 13:08 | CT ---
EXAMINATION TYPE: CT brain wo con DATE OF EXAM: 06/03/2020 COMPARISON: MRI brain 02/26/2011 HISTORY: Weakness. CT DLP: 1025.4 mGycm Automated exposure control for dose reduction was used. Helical acquisition through the brain. FINDINGS: Periventricular white matter low-attenuation is noted. There is no hemorrhage or hydrocephalus. Cereb ral vascular calcifications are present. Cortical atrophy is likely age-related. Orbits show symmetri c appearance. IMPRESSION: NO ACUTE ABNORMALITY. AGE-RELATED CHANGES OF ATROPHY AND PROBABLE CHRONIC SMALL VESSEL ISCHEMIA.
--- NOTE | 2020-06-03 13:27 | P.CNPUL ---
History of Present Illness Consult date: 06/03/20 Reason for consult: dyspnea History of present illness: 84-year-old female patient, [place] to the hospital because of worsening shortness of breath and the patient was found to be in atrial fibrillation. The patient is known to have hypertension and hyperlipidemia and chronic fibro- myalgia. The patient was having exertional dyspnea and the patient was seen by cardiology on outpatient basis. 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 Denies having any chest pain. No sputum production. No chest tightness. No wheezing. No previous history of lung disease or disorder such as asthma or emphysema and the patient is a nonsmoker. The patient's cardiac rhythm was atrial fibrillation. The patient had a troponin that was negative, proBNP level was 2320, renal function is stable with a creatinine of 0.6 with a potassium level of 3.8 and sodium level of 135. The patient's EKG revealed atrial fibrillation. The chest x-ray showed small bilateral pleural effusion right more than left. The patient was receiving Lasix 10 mg on outpatient basis and the patient's Lasix was increased to a dose of 20 mg currently while in the hospital. Cardiology is on the case regarding the atrial fibrillation and rate control. No significant edema in lower extremities. No altered mentation. No focal neurological. Review of Systems A 14 point review of system was done and the positive findings are almost above history of present illness. CONSTITUTIONAL: Denies fever or chills. CARDIOVASCULAR: Denies chest pain, shortness of breath, orthopnea, PND or palpitations. RESPIRATORY: Denies cough. The patient endorses worsening shortness of breath easily with exertion. No orthopnea. GASTROINTESTINAL: Denies abdominal pain, diarrhea, constipation, nausea or vomiting. MUSCULOSKELETAL: Denies myalgias. NEUROLOGIC: Denies numbness, tingling or weakness. ENDOCRINE: Denies fatigue, weight change, polydipsia or polyurina. GENITOURINARY: Denies burning, hematuria or urgency with micturation. HEMATOLOGIC: Denies history of anemia or bleeding. Past Medical History Past Medical History: Cancer, GERD/Reflux, Hypertension, Osteoarthritis (OA) Additional Past Medical History / Comment(s): vertigo, Sjogren's Syndrome, leaky valve, fibromyalgia, IBS, Trigeminal neuralgia,difficulty swallowing large pills, stress test done 12-04-15 pne vaccine few years ago not sure of date-dr silva aaln not able to verify date. History of Any Multi-Drug Resistant Organisms: None Reported Past Surgical History: Breast Surgery, Cholecystectomy, Hysterectomy, Orthopedic Surgery, Tonsillectomy Past Anesthesia/Blood Transfusion Reactions: No Reported Reaction, Motion Sick ness Additional Past Anesthesia/Blood Transfusion Reaction / Comment(s): " a little goes a long way", clausterphobia Past Psychological History: Anxiety Smoking Status: Never smoker Past Alcohol Use History: None Reported Past Drug Use History: None Reported - Past Family History Mother Family Medical History: CVA/TIA Father Family Medical History: Congestive Heart Failure (CHF), Dementia Medications and Allergies Home Medications Medication Instructions Recorded Confirmed Type ALPRAZolam [Xanax] 0.125 mg PO TID@0900,1600,2200 11/10/15 06/02/20 History Cholecalciferol [Vitamin D3 (25 5,000 unit PO DAILY@0900 11/10/15 06/02/20 H istory Mcg = 1000 Iu)] Dicyclomine HCl 10 mg PO BID PRN 11/10/15 06/02/20 History Omeprazole 40 mg PO AC-BRKFST 11/10/15 06/02/20 History Vit C/E/Zn/Coppr/Lutein/Zeaxan 1 cap PO BID@0900,1800 11/10/15 06/02/20 History [Preservision Areds 2 Softgel] L.acidoph,Paracasei, B.lactis 1 cap PO BID@0900,1800 12/05/15 06/02/20 History [Probiotic] Ascorbic Acid [Vitamin C] 500 mg PO DAILY@1600 06/02/20 06/02/20 History Azithromycin [Zithromax Z-pack (6 See Taper PO DAILY 06/02/20 06/02/20 History tabs)] Calcium Citrate 250 mg PO BID@0900,1800 06/02/20 06/02/20 History Calm Magnesium Carbonate 41mg 1 scoop PO BID@0900,1800 06/02/20 06/02/20 History Powder Furosemide [Lasix] 10 mg PO DAILY@0900 10/25/20 10/25/20 History Jennifer Supplement 150mg(10mg 1 tab PO BID@0900,1800 06/02/20 06/02/20 History Niacinamide W/10mg Inositol) Meclizine [Antivert] 6.25 mg PO BID PRN 06/02/20 06/02/20 History Propylene Glycol/Peg 400/Pf 1 drop BOTH EYES QID PRN 06/02/20 06/02/20 History [Systane 0.3-0.4% Eye Drops] Turmeric/Turmeric Root Extract 1 cap PO DAILY@0900 06/02/20 06/02/20 History [Turmeric 450-50 mg Capsule] Vitamin B Complex 1 cap PO DAILY@0900 06/02/20 06/02/20 History cloNIDine 0.1 MG/24HR PATCH 1 patch TRANSDERM TH 06/02/20 06/02/20 History [Catapres-TTS] cycloSPORINE 0.05% OPHTH SOLN 1 drop BOTH EYES DAILY@0900 06/02/20 06/02/20 History [Restasis] Apixaban [Eliquis] 2.5 mg PO BID #60 tab 06/03/20 Rx Allergies Allergy/AdvReac Type Severity Reaction Status Date / Time amlodipine besylate Allergy Unknown Verified 06/02/20 12:16 [From Norvasc] atorvastatin calcium Allergy Unknown Verified 06/02/20 12:16 [From Lipitor] citalopram hydrobromide Allergy Unknown Verified 06/02/20 12:16 [From Celexa] clonazepam [From Klonopin] Allergy Unknown Verified 06/02/20 12:16 lisinopril [From Prinivil] Allergy Unknown Verified 06/02/20 12:16 moxifloxacin HCl Allergy Unknown Verified 06/02/20 12:16 [From Avelox] Penicillins Allergy Unknown Verified 06/02/20 12:16 simvastatin Allergy Unknown Verified 06/02/20 12:16 Sulfa (Sulfonamide Allergy Unknown Verified 06/02/20 12:16 Antibiotics) Tetracyclines Allergy Unknown Verified 06/02/20 12:16 aspirin AdvReac Unknown Verified 06/02/20 12:16 muscle relaxors Allergy Unknown Uncoded 06/02/20 12:16 Physical Exam Vitals: Vital Signs Temp Pulse Pulse Resp BP BP Pulse Ox 06/03/20 12:00 75 22 131/88 94 L 06/03/20 08:20 97.9 F 79 20 138/92 97 06/03/20 03:53 78 16 06/03/20 03:52 97.9 F 78 16 134/80 97 06/03/20 00:00 64 18 06/02/20 23:36 146/82 06/02/20 23:00 97.8 F 64 18 171/119 99 06/02/20 20:00 97.6 F 58 L 18 165/98 97 06/02/20 17:09 20 98 06/02/20 17:08 22 91 L 06/02/20 16:00 87 18 140/80 95 06/02/20 15:02 97.9 F 89 18 145/96 96 06/02/20 14:58 96.4 F L 80 18 127/98 96 06/02/20 14:05 144/98 06/02/20 14:00 87 18 144/98 96 Intake and Output 06/02/20 06/03/20 06/03/20 22:59 06:59 14:59 Intake Total 400 240 Output Total 640 1480 Balance -240 -1480 240 Intake: Oral 400 240 Output: Urine 640 1480 Other: Voiding Method Bedside Commode Bedside Commode # Voids 3 3 1 # Bowel Movements 1 1 Weight 58.2 kg Gen. appearance she is calm and comfortable and the patient is not having any a cute respiratory distress Head exam was generally normal. There was no scleral icterus or corneal arcus. Mucous membranes were moist. Neck was supple and without jugular venous distension, thyromegaly, or carotid bruits. Carotids were easily palpable bilaterally. There was no adenopathy. Lungs sounds are diminished in lung bases bilaterally otherwise clear. Few crackles in lung bases. Heart sounds are irregular consistent with atrial fibrillation the patient is systolic ejection murmur along the left lateral sternal border grade 3/6. No rubs. Abdominal exam revealed normal bowel sounds. The abdomen was soft, non-tender, and without masses, organomegaly, or appreciable enlargement of the abdominal aorta. Examination of the extremities revealed easily palpable radial, femoral and pedal pulses. There was no cyanosis, clubbing or edema. Examination of the skin revealed no evidence of significant rashes, suspicious appearing nevi or other concerning lesions. Neurologically the patient is awake and alert and is focal neurological deficit. Results - Laboratory Findings CBC and BMP: 06/02/20 12:44 06/03/20 07:26 PT/INR, D-dimer PT 10.5 sec (9.0-12.0) 06/02/20 12:44 INR 1.0 (<1.2) 06/02/20 12:44 Abnormal lab findings: Abnormal Labs 06/02/20 06/02/20 06/03/20 12:44 12:44 07:26 Lymphocytes # 0.8 L Sodium 134 L 135 L Carbon Dioxide 32 H Glucose 115 H 110 H POC Glucose (mg/dL) AST 60 H ALT 93 H Alkaline Phosphatase 127 H 06/03/20 12:00 Lymphocytes # Sodium Carbon Dioxide Glucose POC Glucose (mg/dL) 148 H AST ALT Alkaline Phosphatase - Diagnostic Findings Chest x-ray: image reviewed Assessment and Plan Plan: 1 acute dyspnea most likely on the basis of A. fib which probably caused decompensated heart failure in the setting of valvular heart disease and severe mitral regurgitation the patient developed worsening shortness of breath and small bilateral pleural effusion right more than left. 2 moderate to severe mitral regurgitation secondary pulmonary hypertension 3 new onset atrial fibrillation, rate controlled 4 small bilateral pleural effusion right more than left 5 secondary pulmonary hypertension related to valvular heart disease 6 hypertension 7 hyperlipidemia Plan Management of atrial fibrillation per cardiology Gentle diuresis, continue Lasix 20 mg by mouth daily No indication for any respiratory infection or pneumonia, no indication for any chronic lung disease Long-term anticoagulation Wean down the FiO2 as long as the patient's pulse ox remains above 90%.
--- NOTE | 2020-06-03 18:34 | P.CNNES ---
History of Present Illness Consult date: 06/03/20 Requesting physician: Neena Manzo Reason for Consult: perioral numbness History of Present Illness: This is an 84-year-old right-handed woman with medical history of Sjogren Syndrome (confirmed with lip biopsy who had it for 23 years), atrial fibrillation, essential tremor of head, panic attack and anxiety, fibromyalgia and hypertension that presented to the emergency department on 06/02/2020 shortness of breath and peripheral edema for the past 1 week. For the past 4-5 weeks she feels like she has an "ice pack" across her chest, then after that has generalized weakness, numbness of right cheek area and chin area. Episodes last about 10-15 minutes. She has multiple episode of these and some days are better than others. She said when she ate today it was the worst for the worst. She does have nausea with this but no vomitting. Denies visual disturbance, focal weakness, slurring of speech. She denies loss of consciousness with these episodes. She was recently place on anticoagulation for Atrial fibrillation but otherwise not on new medication. The patient complaining of the mild nonproductive cough. She was evaluated by her model dresser in the office yesterday and was advised to take small dose of Lasix as well as antibiotic concerning for possible underlying pneumonia. Of note patient was on the tapering dose of prednisone from 05/07/2020 at 12 05/16/2020 because of questionable rib fracture which was not seen on imaging. She said at that time she rolled over and the thought she had a rib fracture she had some imaging workup was negative the the physician stated that to put her on prednisone tapering. As a result she had side effects from the prednisone in which she was having hot flashes, blurry vision and swelling of her extremities especially lower extremities. Note the patient the had episodes of of hypertension couple years back and that she was worked up for pheochromocytoma at [facility] and that was negative. Her symptoms has resolved. She did have limited hormonal workup like estrogen according to the daughter and they're not sure exactly the results. Also patient was told that she had trigeminal neuralgia on the right side of the face and eye was about 6 years ago. Workup in the hospital consisted of: Initial vital signs: Blood pressure of 160/124, heart rate of 56, respiratory of 18, temperature of 98.2 Fahrenheit oral and pulse ox of 97 at room air. During her hospital stay so far her blood pressure was ranging between the systolic and 160s to 170s. CT of the head was reported as no acute abnormality. Age-related changes of atrophy and probable chronic small vessel ischemia. Review the CT of the head and there is no acute ischemia or hemorrhage. There is no pertinent encephalomalacia. EKG was reported as age are fibrillation with premature ventricular or aberrantly conducted complexes. Ventricle rate of 98. Abnormal EKG. Review of Systems Review of system: The 12 point system was reviewed and apparent positive and negative per HPI. Past Medical History Past Medical History: Cancer, GERD/Reflux, Hypertension, Osteoarthritis (OA) Additional Past Medical History / Comment(s): vertigo, Sjogren's Syndrome, leaky valve, fibromyalgia, IBS, Trigeminal neuralgia,difficulty swallowing large pills, stress test done 12-04-15 pne vaccine few years ago not sure of date-dr silva alan not able to verify date. History of Any Multi-Drug Resistant Organisms: None Reported Past Surgical History: Breast Surgery, Cholecystectomy, Hysterectomy, Orthopedic Surgery, Tonsillectomy Past Anesthesia/Blood Transfusion Reactions: No Reported Reaction, Motion Sickness Additional Past Anesthesia/Blood Transfusion Reaction / Comment(s): " a little goes a long way", clausterphobia Past Psychological History: Anxiety Smoking Status: Never smoker Past Alcohol Use History: None Reported Past Drug Use History: None Reported - Past Family History Mother Family Medical History: CVA/TIA Father Family Medical History: Congestive Heart Failure (CHF), Dementia Medications and Allergies Home Medications Medication Instructions Recorded Confirmed Type ALPRAZolam [Xanax] 0.125 mg PO TID@0900,1600,2200 11/10/15 06/02/20 History Cholecalciferol [Vitamin D3 (25 5,000 unit PO DAILY@0900 11/10/15 06/02/20 History Mcg = 1000 Iu)] Dicyclomine HCl 10 mg PO BID PRN 11/10/15 06/02/20 History Omeprazole 40 mg PO AC-BRKFST 11/10/15 06/02/20 History Vit C/E/Zn/Coppr/Lutein/Zeaxan 1 cap PO BID@0900,1800 11/10/15 06/02/20 History [Preservision Areds 2 Softgel] L.acidoph,Paracasei, B.lactis 1 cap PO BID@0900,1800 12/05/15 06/02/20 History [Probiotic] Ascorbic Acid [Vitamin C] 500 mg PO DAILY@1600 06/02/20 06/02/20 History Azithromycin [Zithromax Z-pack (6 See Taper PO DAILY 06/02/20 06/02/20 History tabs)] Calcium Citrate 250 mg PO BID@0900,1800 06/02/20 06/02/20 History Calm Magnesium Carbonate 41mg 1 scoop PO BID@0900,1800 06/02/20 06/02/20 History Powder Furosemide [Lasix] 10 mg PO DAILY@0900 06/02/20 06/02/20 History Jennifer Supplement 150mg(10mg 1 tab PO BID@0900,1800 06/02/20 06/02/20 History Niacinamide W/10mg Inositol) Meclizine [Antivert] 6.25 mg PO BID PRN 06/02/20 06/02/20 History Propylene Glycol/Peg 400/Pf 1 drop BOTH EYES QID PRN 06/02/20 06/02/20 History [Systane 0.3-0.4% Eye Drops] Turmeric/Turmeric Root Extract 1 cap PO DAILY@0900 06/02/20 06/02/20 History [Turmeric 450-50 mg Capsule] Vitamin B Complex 1 cap PO DAILY@0900 06/02/20 06/02/20 History cloNIDine 0.1 MG/24HR PATCH 1 patch TRANSDERM TH 06/02/20 06/02/20 History [Catapres-TTS] cycloSPORINE 0.05% OPHTH SOLN 1 drop BOTH EYES DAILY@0900 06/02/20 06/02/20 History [Restasis] Apixaban [Eliquis] 2.5 mg PO BID #60 tab 06/03/20 Rx Allergies Allergy/AdvReac Type Severity Reaction Status Date / Time amlodipine besylate Allergy Unknown Verified 06/02/20 12:16 [From Norvasc] atorvastatin calcium Allergy Unknown Verified 06/02/20 12:16 [From Lipitor] citalopram hydrobromide Allergy Unknown Verified 06/02/20 12:16 [From Celexa] clonazepam [From Klonopin] Allergy Unknown Verified 06/02/20 12:16 lisinopril [From Prinivil] Allergy Unknown Verified 06/02/20 12:16 moxifloxacin HCl Allergy Unknown Verified 06/02/20 12:16 [From Avelox] Penicillins Allergy Unknown Verified 06/02/20 12:16 simvastatin Allergy Unknown Verified 06/02/20 12:16 Sulfa (Sulfonamide Allergy Unknown Verified 06/02/20 12:16 Antibiotics) Tetracyclines Allergy Unknown Verified 06/02/20 12:16 aspirin AdvReac Unknown Verified 06/02/20 12:16 muscle relaxors Allergy Unknown Uncoded 06/02/20 12:16 Physical Examination - Vital Signs Vital Signs: Vital Signs Temp Pulse Resp BP Pulse Ox 06/03/20 16:00 98.2 F 85 20 141/100 97 06/03/20 12:00 75 22 131/88 94 L 06/03/20 08:20 97.9 F 79 20 138/92 97 06/03/20 03:53 78 16 06/03/20 03:52 97.9 F 78 16 134/80 97 06/03/20 00:00 64 18 06/02/20 23:36 146/82 06/02/20 23:00 97.8 F 64 18 171/119 99 06/02/20 20:00 97.6 F 58 L 18 165/98 97 Intake and Output 06/03/20 06/03/20 06/03/20 06:59 14:59 22:59 Intake Total 480 Output Total 1480 400 Balance -1480 80 Intake: Oral 480 Output: Urine 1480 400 Other: Voiding Method Bedside Commode # Voids 3 1 # Bowel Movements 1 1 GENERAL: The patient is lying in bed and is not in acute distress. CHEST: The heart rate is regular rate rhythm. No murmurs to auscultation. LUNG: Clear to auscultation bilaterally no wheezing noted throughout. Not labored breathing. ABDOMEN/GI: Bowel sounds present in all 4 quadrants. No tenderness to palpation throughout. NEUROLOGICAL: Higher mental function: The patient is awake, alert, oriented to self, place and time. Patient is following commands. No aphasia and no neglect. Cranial nerves: The pupils are round, equal and reactive to light and accommodation. Visual orozco are full to confrontation throughout. Extraocular movement is intact no nystagmus is noted. Facial sensation is normal to touch throughout. The facial strength is normal throughout. Hearing is normal bilaterally to hand rub. Tongue is midline and moved [id number] without any difficulty. No dysarthria is noted. Shoulder shrug is normal bilaterally. Motor: The strength is 5 over 5 throughout. Normal tone and bulk. Cerebellum: Normal finger to nose heel to chin bilaterally. Sensation: Sensation is normal to touch throughout. Reflexes (right/left): 2+ Plantars are downgoing bilaterally. Results Initial sodium was 134 repeated was 135. Calcium was 9.1. AST of 60 ALTs of 93. Alkaline Phosphatase 127. UA is negative for urinary tract infection. - Laboratory Findings CBC and BMP: 06/02/20 12:44 06/03/20 07:26 Abnormal Lab Findings: Abnormal Labs 06/02/20 06/02/20 06/03/20 12:44 12:44 07:26 Lymphocytes # 0.8 L Sodium 134 L 135 L Carbon Dioxide 32 H Glucose 115 H 110 H POC Glucose (mg/dL) AST 60 H ALT 93 H Alkaline Phosphatase 127 H 06/03/20 12:00 Lymphocytes # Sodium Carbon Dioxide Glucose POC Glucose (mg/dL) 148 H AST ALT Alkaline Phosphatase Assessment and Plan Assessment: Multiple episodes of having sensation of ice pack on her chest then the feeling generalized weakness and numbness over the right V2 V3 distribution, nausea and sometimes worst after eating: Unknown etiology. One other consideration is the autonomic dysfunction especially with a history of Sjogren's syndrome. Sjogren's syndrome (confirmed with the lip biopsy--was diagnosed with it for 23 years) Trigeminal neuralgia on the right side of the face Hypertension Atrial fibrillation Fibromyalgia Anxiety/panic attack Herbal bowel syndrome Plan: I will order ionized calcium I will also order vitamin B12. TSH is pending. I don't think that a brain MRI is warranted since it's not localized to the brain. Cardiology is on board and there recommendation is appreciated it. I notified the patient as well as daughter that likely if the workup in the hospital are negative she needs autonomic workup as an outpatient. Patient need to follow-up with a neurologist outpatient. Thank you for the consultation. Ravi Justice M.D. Neuro-hospitalist Time with Patient: Greater than 30
[2020-06-03] MEDS: MELATONIN 3 MG TABLET PO SCH (20:05)
[2020-06-04] MEDS: ALPRAZolam 0.25 MG TAB PO PRN (06:21)
[2020-06-04] MEDS: PANTOPRAZOLE 40 MG TABLET PO SCH ×2 (06:22→06:25)
[2020-06-04 07:48] LABS: HCT 38.9 % (34.0-46.0); HGB 12.6 gm/dL (11.4-16.0); MCH 29.4 pg (25.0-35.0); MCHC 32.3 g/dL (31.0-37.0); MCV 90.9 fL (80.0-100.0); Mean Platelet Volume 7.8; Platelet Count 191 k/uL (150-450); RBC 4.28 m/uL (3.80-5.40); RDW 13.9 % (11.5-15.5); WBC 4.5 k/uL (3.8-10.6)
[2020-06-04 08:03] LABS: Ionized Calcium 4.7 mg/dL (4.5-5.3)
[2020-06-04 08:04] LABS: African American GFR (CKD) >90 (>60 ml/min/1.73 sqM); Anion Gap 4 mmol/L; Blood Urea Nitrogen 13 mg/dL (7-17); Calcium 8.5 mg/dL (8.4-10.2); Carbon Dioxide 31 mmol/L (22-30); Chloride 100 mmol/L (98-107); Glucose 109 mg/dL (74-99); Non-African American GFR(CKD) 80 (>60 ml/min/1.73 sqM); Potassium 3.8 mmol/L (3.5-5.1); Sodium 135 mmol/L (137-145)
[2020-06-04] MEDS: APIXABAN 2.5 MG TABLET PO SCH (10:02)
[2020-06-04] MEDS: AZITHROMYCIN 250 MG TAB PO SCH (10:02)
[2020-06-04] MEDS: CHOLECALCIFEROL 1,000 UNIT TAB PO SCH (10:02)
[2020-06-04] MEDS: MULTIVITAMINS, THERA 1 EACH TAB PO SCH (10:02)
[2020-06-04] MEDS: FUROSEMIDE 20 MG TAB PO SCH (10:03)
[2020-06-04] MEDS: cycloSPORINE 0.05% OPHTH 0.4 ML DROPERETTE BOTH EYES SCH (10:04)
[2020-06-04] MEDS: DICYCLOMINE 10 MG CAP PO SCH (10:04)
[2020-06-04] MEDS: CLOBETASOL PROP 0.05% CR 15GM TOPICAL SCH (10:04)
[2020-06-04] MEDS: VIT A,C & E-LUTEIN-MINERALS 1 EACH TAB PO SCH (10:05)
[2020-06-04] MEDS: METOPROLOL TARTRATE 25 MG TAB PO SCH (10:05)
[2020-06-04 10:37] VITALS: BP 148/83; PULSE 78; RESP 18; TEMP 98.2
--- NOTE | 2020-06-04 11:07 | P.DS ---
Providers Date of admission: 06/02/20 14:13 Expected date of discharge: 06/04/20 Attending physician: Liz Astudillo Consults: 06/02/20 14:13 Consult Physician Routine Consulting Provider: Tyrese Antonio Consult Reason/Comments: CHF, chronic A. fib, outpatient treatment failure Do you want consulting provider notified?: Yes 06/02/20 16:52 Consult Physician Routine Consulting Provider: Alpesh Lee Consult Reason/Comments: Possible interstitial lung Do you want consulting provider notified?: Yes 06/03/20 11:56 Consult Physician Routine Consulting Provider: Ravi Justice Consult Reason/Comments: perioral numbness Do you want consulting provider notified?: Yes Primary care physician: [facility] Course: Discharge Diagnosis: Acute exacerbation of diastolic CHF Newly discovered Paroxysmal atrial fibrillation Right sided pleural effusion HTN Anxiety Transaminitis 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 Patient was seen by Dr. Antonio in the cardiology office one day prior to admission and was started on Lasix for possible congestive heart failure. He asked her to undergo a chest x-ray which was completed and the physician at urgent care subsequently started her on an antibiotic for possible pneumonia versus fluid overload. On arrival to the emergency department her vital signs are within normal limits. She was bradycardic with a pulse of 56, respirations 18, blood pressure 160/124, and she was satting 96% on room air. Chest x-ray showed chronic changes and cardiomegaly and bilateral pleural effusions right greater than left with possible acute infiltrate. Laboratory analysis today showed a normal white blood cell count 5.3, lymphocytes 0.8., Sodium 134, glucose 115, AST 60, ALT 93, alkaline phosphatase 127, BNP 2320, troponin negative at 0.01. She was diagnosed with acute exacerbation of diastolic congestive heart failure started on IV Lasix. Cardiology was consulted. She was admitted to the telemetry floor. She did agree with eliquis per cardiology. She had been having episodes of generalized weakness with paraesthesia and nausea worse after eating and neurology was consulted. There was concern for possible autonomic dysfunction and they r ecommended further outpatient testing. Head CT negative for any acute process, TSH and Calcium levels were normal. She was seen by pulmonary who felt that the right pleural effusion was related to CHF/ mitral regurg. She did well and was determined stable for discharge. She will have a life alert, home care, and family support at home. I have also suggested consult with rheumatology regarding complications of Sjogren's disease. Repeat CMP in 1 week due to liver enzyme elevation. Patient seen and examined at bedside.No additional episodes overnight. Breathing and edema are better. 30 minutes spent educating patient and daughter about plan of care as directed above. Vital signs reviewed and stable. General: non toxic, no distress, appears at stated age Derm: warm, dry Head: atraumatic, normocephalic, symmetric Eyes: EOMI, no lid lag, anicteric sclera Mouth: no lip lesion, mucus membranes moist Cardiovascular: S1S2 reg, no murmur, positive posterior tibial pulse bilateral, Lungs: Ronchi right base, no rhonchi, no rales , no accessory muscle use Abdominal: soft, nontender to palpation, no guarding, no appreciable organomegaly Ext: no gross muscle atrophy, no edema, no contractures Neuro: CN II-XI grossly intact, no focal neuro deficits, + head tremor Psych: Alert, oriented, appropriate affect A total of 35 minutes of time were spent preparing this complex discharge summary . Patient Condition at Discharge: Fair Plan - Discharge Summary Discharge Rx Participant: No New Discharge Prescriptions: New Apixaban [Eliquis] 2.5 mg PO BID #60 tab No Action Cholecalciferol [Vitamin D3 (25 Mcg = 1000 Iu)] 5,000 unit PO DAILY@0900 ALPRAZolam [Xanax] 0.125 mg PO TID@0900,1600,2200 Omeprazole 40 mg PO AC-BRKFST Dicyclomine HCl 10 mg PO BID PRN PRN Reason: ibs Vit C/E/Zn/Coppr/Lutein/Zeaxan [Preservision Areds 2 Softgel] 1 cap PO BID@0900,1800 L.acidoph,Paracasei, B.lactis [Probiotic] 1 cap PO BID@0900,1800 Meclizine [Antivert] 6.25 mg PO BID PRN PRN Reason: Vertigo Azithromycin [Zithromax Z-pack (6 tabs)] See Taper PO DAILY cloNIDine 0.1 MG/24HR PATCH [Catapres-TTS] 1 patch TRANSDERM TH Calm Magnesium Carbonate 41mg Powder 1 scoop PO BID@0900,1800 Ascorbic Acid [Vitamin C] 500 mg PO DAILY@1600 Propylene Glycol/Peg 400/Pf [Systane 0.3-0.4% Eye Drops] 1 drop BOTH EYES QID PRN PRN Reason: Dry Eye(S) cycloSPORINE 0.05% OPHTH SOLN [Restasis] 1 drop BOTH EYES DAILY@0900 Furosemide [Lasix] 10 mg PO DAILY@0900 Turmeric/Turmeric Root Extract [Turmeric 450-50 mg Capsule] 1 cap PO DAILY@0900 Vitamin B Complex 1 cap PO DAILY@0900 Jennifer Supplement 150mg(10mg Niacinamide W/10mg Inositol) 1 tab PO BID@0900,1800 Calcium Citrate 250 mg PO BID@0900,1800 Discharge Medication List ALPRAZolam [Xanax] 0.125 mg PO TID@0900,1600,2200 11/10/15 [History] Cholecalciferol [Vitamin D3 (25 Mcg = 1000 Iu)] 5,000 unit PO DAILY@0900 11/10/15 [History] Dicyclomine HCl 10 mg PO BID PRN 11/10/15 [History] Omeprazole 40 mg PO AC-BRKFST 11/10/15 [History] Vit C/E/Zn/Coppr/Lutein/Zeaxan [Preservision Areds 2 Softgel] 1 cap PO BID@0900,1800 11/10/15 [History] L.acidoph,Paracasei, B.lactis [Probiotic] 1 cap PO BID@0900,1800 12/05/15 [History] Ascorbic Acid [Vitamin C] 500 mg PO DAILY@1600 06/02/20 [History] Azithromycin [Zithromax Z-pack (6 tabs)] See Taper PO DAILY 06/02/20 [History] Calcium Citrate 250 mg PO BID@0900,1800 06/02/20 [History] Calm Magnesium Carbonate 41mg Powder 1 scoop PO BID@0900,1800 06/02/20 [History] Furosemide [Lasix] 10 mg PO DAILY@0900 06/02/20 [History] Jennifer Supplement 150mg(10mg Niacinamide W/10mg Inositol) 1 tab PO BID@0900,1800 06/02/20 [History] Meclizine [Antivert] 6.25 mg PO BID PRN 06/02/20 [History] Propylene Glycol/Peg 400/Pf [Systane 0.3-0.4% Eye Drops] 1 drop BOTH EYES QID PRN 06/02/20 [History] Turmeric/Turmeric Root Extract [Turmeric 450-50 mg Capsule] 1 cap PO DAILY@0900 06/02/20 [History] Vitamin B Complex 1 cap PO DAILY@0900 06/02/20 [History] cloNIDine 0.1 MG/24HR PATCH [Catapres-TTS] 1 patch TRANSDERM TH 06/02/20 [History] cycloSPORINE 0.05% OPHTH SOLN [Restasis] 1 drop BOTH EYES DAILY@0900 06/02/20 [History] Apixaban [Eliquis] 2.5 mg PO BID #60 tab 06/03/20 [Rx] Follow up Appointment(s)/Referral(s): Tyrese Antonio MD [STAFF PHYSICIAN] - 2 Weeks Veena Spencer MD [REFERRING] - 2 Weeks [facility] [NON-STAFF] - Sandro Rosen MD [Primary Care Provider] - 1-2 days Zeferino Calix DO [STAFF PHYSICIAN] - 1 Week Sophia Bailey MD [STAFF PHYSICIAN] - 2 Weeks [facility], [NON-STAFF] - Activity/Diet/Wound Care/Special Instructions: 30 day supply of Eliquis filled for free in [facility] pharmacy. pts copay for 30 day supply is $45
--- NOTE | 2020-06-04 11:15 | XR ---
EXAMINATION TYPE: XR chest 2V DATE OF EXAM: 06/04/2020 CLINICAL HISTORY: right sided pleural effusion. TECHNIQUE: Frontal and lateral view of the chest. COMPARISON: 06/02/2020 chest radiograph FINDINGS: The lungs are hyperinflated with chronic interstitial coarsening. Cardiomegaly. Mediastina l silhouette normal. There is redemonstrated small bilateral pleural effusions and right basilar airs pace opacities. No pneumothorax. IMPRESSION: 1. Small bilateral pleural effusions and right basilar airspace opacities not significantly changed f rom 06/02/2020. 2. Chronic interstitial change and cardiomegaly.
--- NOTE | 2020-06-04 12:37 | P.PN ---
Subjective HISTORY OF PRESENTING ILLNESS This is a pleasant 84-year-old female past medical history significant for hypertension, dyslipidemia, valvular heart disease and fibromyalgia. She follows in the office with Dr. Antonio. She is seen and examined up ambulating around the room in no acute distress. She continues to be in atrial fibrillatio n with controlled ventricular rates. She has no symptoms of chest pain, shortness of breath, dizziness or palpitations. Blood pressure 148/83 heart rate 78 afebrile maintaining oxygen saturation on room air. Laboratory data reviewed, CBC unremarkable, sodium 135, potassium 3.8 and creatinine 0.7. PHYSICAL EXAMINATION CONSTITUTIONAL: No apparent distress. HEENT: Head is normocephalic. Pupils are equal, round. Sclerae anicteric. Mucous membranes of the mouth are moist. No JVD. No carotid bruit. CHEST EXAMINATION: Lungs are clear to auscultation. No chest wall tenderness is noted on palpation or with deep breathing. HEART EXAMINATION: Irregular rate and rhythm. S1, S2 heard. Systolic ejection murmur at the apex, no gallops or rub. EXTREMITIES: 2+ peripheral pulses, no lower extremity edema and no calf tenderness. ASSESSMENT New onset paroxysmal atrial fibrillation Hypertension Dyslipidemia Valvular heart disease, mitral regurgitation and tricuspid regurgitation Pulmonary hypertension PLAN Lengthy discussion had with the patient and her daughter regarding current medication regimen continued diagnosis of A. fib. She will continue anticoagulation. Stable for discharge from a cardiac perspective on current medical regimen. Follow-up in the office with Dr. Antonio in one to 2 weeks. Nurse Practitioner note has been reviewed, I agree with a documented findings and plan of care. Patient was seen and examined. Objective - Vital Signs Vital signs: Vital Signs Temp 98.2 F 06/04/20 08:00 Pulse 78 06/04/20 08:00 Resp 18 06/04/20 08:00 BP 148/83 06/04/20 08:00 Pulse Ox 95 06/04/20 08:00 Intake & Output 06/03/20 06/04/20 06/04/20 18:59 06:59 18:59 Intake Total 600 Output Total 400 470 Balance 200 -470 Intake: Oral 600 Output: Urine 400 470 Other: Voiding Method Bedside Commode # Voids 1 1 # Bowel Movements 1 - Labs CBC & Chem 7: 06/04/20 07:05 06/04/20 07:05 Labs: Abnormal Lab Results - Last 24 Hours (Table) 06/04/20 Range/Units 07:05 Sodium 135 L (137-145) mmol/L Carbon Dioxide 31 H (22-30) mmol/L Glucose 109 H (74-99) mg/dL Microbiology - Last 24 Hours (Table) 06/02/20 12:44 Blood Culture - Preliminary Blood No Growth after 24 hours
--- NOTE | 2020-06-04 13:45 | P.PN ---
Subjective Progress Note Date: 06/04/20 Principal diagnosis: Acute dyspnea 84-year-old female patient, [place] to the hospital because of worsening shortness of breath and the patient was found to be in atrial fibrillation. The patient is known to have hypertension and hyperlipidemia and chronic fibro- myalgia. The patient was having exertional dyspnea and the patient was seen by cardiology on outpatient basis. 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 Denies having any chest pain. No sputum production. No chest tightness. No wheezing. No previous history of lung disease or disorder such as asthma or emphysema and the patient is a nonsmoker. The patient's cardiac rhythm was atrial fibrillation. The patient had a troponin that was negative, proBNP level was 2320, renal function is stable with a creatinine of 0.6 with a potassium level of 3.8 and sodium level of 135. The patient's EKG revealed atrial fibrillation. The chest x-ray showed small bilateral pleural effusion right more than left. The patient was receiving Lasix 10 mg on outpatient basis and the patient's Lasix was increased to a dose of 20 mg currently while in the hospital. Cardiology is on the case regarding the atrial fibrillation and rate control. No significant edema in lower extremities. No altered mentation. No focal neurological. On 06/04/2020 patient seen in follow-up on selective care unit, she is awake and alert, in no acute distress, chest x-ray shows small bilateral pleural effusions and right basilar airspace opacity with some improvement from previous exam. Clinically patient is feeling better, breathing easier, she is on room air with a pulse ox of 93-95%, hemodynamically stable, no complaints of chest pain. She's had no fever or chills. Her pro-calcitonin was negative at 0.05, ur inalysis was negative. Tolerating ambulation. Her A. fib is controlled, cardiology is following. She is complaining of a mild headache. Neurology has been following. Brain CT showed no acute abnormality. CBC was within normal limits, sodium was 135, potassium is 3.8, chloride is 100, CO2 31, BUN is 13 creatinine 0.7 Objective - Vital Signs Vital signs: Vital Signs Temp 98.2 F 06/04/20 08:00 Pulse 78 06/04/20 08:00 Resp 18 06/04/20 08:00 BP 148/83 06/04/20 08:00 Pulse Ox 95 06/04/20 08:00 Intake & Output 06/03/20 06/04/20 06/04/20 18:59 06:59 18:59 Intake Total 600 Output Total 400 470 Balance 200 -470 Intake: Oral 600 Output: Urine 400 470 Other: Voiding Method Bedside Commode # Voids 1 1 # Bowel Movements 1 - Exam GENERAL EXAM: Alert, very pleasant, 84-year-old white female, on room air with a pulse ox 95%, comfortable in no apparent distress. HEAD: Normocephalic/atraumatic. EYES: Normal reaction of pupils, equal size. Conjunctiva pink, sclera white. NOSE: Clear with pink turbinates. THROAT: No erythema or exudates. NECK: No masses, no JVD, no thyroid enlargement, no adenopathy. CHEST: No chest wall deformity. Symmetrical expansion. LUNGS: Equal air entry with no crackles, wheeze, rhonchi or dullness. CVS: Irregular rate and rhythm, normal S1 and S2, no gallops, no murmurs, no rubs ABDOMEN: Soft, nontender. No hepatosplenomegaly, normal bowel sounds, no guarding or rigidity. EXTREMITIES: No clubbing, no edema, no cyanosis, 2+ pulses and upper and lower extremities. MUSCULOSKELETAL: Muscle strength and tone normal. SPINE: No scoliosis or deformity SKIN: No rashes CENTRAL NERVOUS SYSTEM: Alert and oriented -3. No focal deficits, tone is normal in all 4 extremities. PSYCHIATRIC: Alert and oriented -3. Appropriate affect. Intact judgment and insight. - Labs CBC & Chem 7: 06/04/20 07:05 06/04/20 07:05 Labs: Abnormal Lab Results - Last 24 Hours (Table) 06/04/20 Range/Units 07:05 Sodium 135 L (137-145) mmol/L Carbon Dioxide 31 H (22-30) mmol/L Glucose 109 H (74-99) mg/dL Microbiology - Last 24 Hours (Table) 06/02/20 12:44 Blood Culture - Preliminary Blood No Growth after 24 hours Assessment and Plan Plan: Assessment: 1 acute dyspnea most likely on the basis of A. fib which probably caused decompensated heart failure in the setting of valvular heart disease and severe mitral regurgitation the patient developed worsening shortness of breath and small bilateral pleural effusion right more than left. 2 moderate to severe mitral regurgitation secondary pulmonary hypertension 3 new onset atrial fibrillation, rate controlled 4 small bilateral pleural effusion right more than left 5 secondary pulmonary hypertension related to valvular heart disease 6 hypertension 7 hyperlipidemia Plan: Patient has been reviewed, showing improvement in aeration, with residual small pleural effusions, patient is on room air, breathing easier, no chest pain. Tolerating ambulation, her A. fib is controlled. She has been transitioned to oral diuretics, and patient is on oral anticoagulation. She stable for discharge home from pulmonary perspective patient has been cleared by cardiology and neurology and medicine I performed a history & physical examination of the patient and discussed their management with my nurse practitioner, Grecia Ng. I reviewed the nurse practitioner's note and agree with the documented findings and plan of care. Lung sounds are positive for diminished breath sounds. The findings and the impression was discussed with the patient. I attest to the documentation by the nurse practitioner. Time with Patient: Less than 30
[2020-06-06] MEDS ORDERED: cloNIDine 0.1 MG/24HR PATCH TRANSDERM SCH (09:00)
== END 2020-06-04 14:45 | disposition home health service (06) | DRG 293 ==
LOC: EC 12:03 → 3SCARD 14:13
PROVIDERS: ADMIT Internal Medicine; ATTEND Internal Medicine
DX: I11.0 Hypertensive heart disease with heart failure (principal); I27.22 Pulmonary hypertension due to left heart disease; G90.9 Disorder of the autonomic nervous system, unspecified; I48.0 Paroxysmal atrial fibrillation; E78.5 Hyperlipidemia, unspecified; I50.33 Acute on chronic diastolic (congestive) heart failure; M35.00 Sjogren syndrome, unspecified; F41.0 Panic disorder [episodic paroxysmal anxiety]; I08.3 Combined rheumatic disorders of mitral, aortic and tricuspid valves; G25.0 Essential tremor; M79.7 Fibromyalgia; R13.10 Dysphagia, unspecified; K21.9 Gastro-esophageal reflux disease without esophagitis; M19.90 Unspecified osteoarthritis, unspecified site; K58.9 Irritable bowel syndrome, unspecified; G50.0 Trigeminal neuralgia; R74.01 Elevation of levels of liver transaminase levels; Z79.899 Other long term (current) drug therapy; Z90.49 Acquired absence of other specified parts of digestive tract; Z87.19 Personal history of other diseases of the digestive system; Z90.710 Acquired absence of both cervix and uterus; Z87.42 Personal history of other diseases of the female genital tract; Z90.89 Acquired absence of other organs; Z88.6 Allergy status to analgesic agent; Z85.9 Personal history of malignant neoplasm, unspecified; Z98.890 Other specified postprocedural states; Z71.3 Dietary counseling and surveillance; Z88.1 Allergy status to other antibiotic agents; Z88.0 Allergy status to penicillin; Z88.2 Allergy status to sulfonamides; Z88.8 Allergy status to other drugs, medicaments and biological substances; Z82.49 Family history of ischemic heart disease and other diseases of the circulatory system; Z81.8 Family history of other mental and behavioral disorders; Z82.3 Family history of stroke
CPT/HCPCS: 36415; 70450; 71046; 80048; 80053; 81003; 82330; 82550; 82607; 83605; 83735; 83880; 84145; 84443; 84484; 85025; 85027; 85610; 85730; 87040; 93005; 96374; 99291

== ENCOUNTER 2020-06-28 07:55 | Day surgery (SDC) | payer MEDICARE ==
[2020-06-26 11:38] VITALS: BMI 21.9
[2020-06-28] MEDS ORDERED: SODIUM CHLORIDE 0.9% 500 ML 500 ML IV ONE (08:13)
[2020-06-28 08:21] VITALS: TEMP 97.7
[2020-06-28] MEDS ORDERED: fentaNYL (PF) 50 MCG/ML 2 ML AMP ONE (08:21)
[2020-06-28] MEDS ORDERED: BENZOCAINE SPRAY 1 CAN MUCOUS MEM ONE (09:00)
[2020-06-28] MEDS ORDERED: fentaNYL (PF) 50 MCG/ML 2 ML AMP IV ONE (09:32)
[2020-06-28] MEDS: MIDAZOLAM 2 MG/2 ML VIAL IV ONE ×2 (09:32→09:48)
[2020-06-28] MEDS ORDERED: hydrALAZINE HCL 20 MG/ML 1 ML VIAL ONE (09:35)
[2020-06-28] MEDS ORDERED: hydrALAZINE HCL 20 MG/ML 1 ML VIAL IV ONE (09:39)
--- NOTE | 2020-06-28 10:37 | P.TEE ---
Indications for Procedure(s): Moderate to severe MR, CHF Description of Procedure(s): Procedure performed: Transesophageal Echocardiogram with color flow doppler, pulsed wave doppler and continuous wave doppler, moderate conscious sedation Moderate conscious sedation: Moderate conscious sedation was supplied with direct supervision of myself using Versed and Fentanyl. Complications: none Indications: Moderate to severe mitral regurgitation, shortness of breath, chronic diastolic heart failure History: Patient is a 85-year-old female with history of hypertension, persistent atrial fibrillation, chronic diastolic heart failure, moderate to severe mitral regurgitation who presents for further workup of her mitral regurgitation. She does have a history of atrial fibrillation and has been experiencing issues of palpitations as well as mainly heart failure symptoms with recent increase in lower extremity edema approximately 1 month ago with increased shortness breath. Patient did have diuresis and she admits her symptoms have predominantly improved over last 1 month. She does still have some dyspnea on exertion. Her echocardiogram showed moderate to severe mitral regurgitation and therefore GRIS was recommended to further assess the degree of the mitral regurgitation. PROCEDURE: After the risks, benefits and alternatives of the above mentioned procedure was explained in detail with the patient, informed consent was obtained. Patient was brought to the lab in a fasting state. Patient was given IV Versed and Fentanyl for sedation. The throat was sprayed with Hurricane to anesthetize the throat. A lubricated Omni probe was then introduced into the esophagus and stomach and multiple views were obtained. 2D echo with color flow doppler, pulsed wave doppler and continuous wave doppler was utilized. Agitated saline bubbles were injected to assess for any intra-atrial shunt. Patient's blood pressure was noted to be elevated at 178/100 even during sedation and therefore additional hydralazine was given with improvement in blood pressure and some improvement in the degree of mitral regurgitation. The probe was then removed. Patient tolerated the procedure well. Patient was transferred to the post procedure area in stable and satisfactory condition. FINDINGS: 1. The aortic valve is tricuspid and functioning normally. There is mild to moderate aortic insufficiency and no significant aortic stenosis. 2. The mitral valve appears be structurally normal. There does appear to be secondary mitral regurgitation likely related to atrial dilation and mild left ventricular dilation. The mitral regurgitation is central and is moderate by all parameters. PISA calculated EROA of 23mm2. Systolic blunting of [employer] pulmonary veins but no reversal noted consistent with moderate MR. MR was noted to improve with improvement of blood pressure with Hydralazine. 3. Tricuspid valve appears to be structurally normal. There is moderate tricuspid regurgitation with RVSP of 43mmHg. 4. The interatrial septum is intact. No evidence of PFO. 5. Left atrial appendage is free of clot. 6. Left ventricular size and function 50-55% without wall motion abnormality. There is mild ventricular dilation. 7. Dilated left atrium and right atrium. Conclusions: 1. Secondary mitral regurgitation with moderate regurgitation by all parameters. EROA calculated at 23mm2 by PISA without any systolic flow reversal of 3 pulmonary veins. Improvement of degree of MR with improvement of BP with Hydralazine in during the procedure. 2. Moderate tricuspid regurgitation with RVSP of 43mmHg. 3. Preserved left ventricular ejection fraction 50-55% 4. Biatrial enlargement likely consistent with diastolic heart failure
[2020-06-28] MEDS ORDERED: METOPROLOL TARTRATE 25 MG TAB PO STA (10:38)
[2020-06-28 11:01] VITALS: RESP 16
[2020-06-28 11:26] VITALS: BP 157/71; PULSE 86
== END 2020-06-28 11:27 | disposition home or self-care (01) ==
LOC: CATHCVL 07:55
PROVIDERS: ATTEND Internal Medicine
DX: I08.1 Rheumatic disorders of both mitral and tricuspid valves (principal); I11.0 Hypertensive heart disease with heart failure; I50.32 Chronic diastolic (congestive) heart failure; E78.5 Hyperlipidemia, unspecified; I65.23 Occlusion and stenosis of bilateral carotid arteries; I95.1 Orthostatic hypotension; I48.19 Other persistent atrial fibrillation; I49.3 Ventricular premature depolarization; Z79.899 Other long term (current) drug therapy; Z88.1 Allergy status to other antibiotic agents; Z88.2 Allergy status to sulfonamides; Z88.0 Allergy status to penicillin; Z88.6 Allergy status to analgesic agent; Z88.8 Allergy status to other drugs, medicaments and biological substances
CPT/HCPCS: 93312; 93320; 93325; J2250; J0360; J3010

== ENCOUNTER → 2020-08-26 | Day surgery (SDC) | payer MEDICARE ==
[2020-08-20 11:55] VITALS: BMI 22.1
[~2020-08-26] MED LIST: LACTATED RINGERS 1,000 ML IV SCH; PROPOFOL 10 MG/ML 20 ML VIAL IV ONE; SODIUM CHLORIDE 0.9% 1,000 ML IV SCH
[2020-08-26 06:58] LABS: Calcium 9.2 mg/dL (8.4-10.2); Potassium 4.6 mmol/L (3.5-5.1)
--- NOTE | 2020-08-26 07:55 | P.HPCAR ---
History of Present Illness This is Dr. Antonio dictating an H/P on this patient The patient was interviewed and examined IMPRESSION / ASSESSMENT: Persistent symptomatic atrial fibrillation, symptomatic On amiodarone 200 mg by mouth daily Preserved LV systolic function with moderate mitral regurgitation Moderate aortic regurgitation Hypertension PVC burden 31% PLAN: Electrical cardioversion on amiodarone HPI Patient continues to have symptoms of tiredness fatigue shortness of breath and increasing lower extremity edema since she was discharged from the hospital in late June 2020 She remains in persistent atrial fibrillation within average heart rate in the 80s, heart rates well controlled. Despite that she is quite symptomatic She was started on amiodarone in early July 2020 She remains in A. fib ROS: No fever chills or rigors, no cough, phlegm or expectoration, no nausea, vomiting or diarrhea, no hematuria, dysuria, no musculoskeletal complaints, no strokes or seizures, no skin lesions. EXAMINATION: 180/105 mmHg, heart rates in the 80s Breath sounds clear Heart sounds irregular Systolic murmur over the precordium No JVD No lower extremity edema REVIEW OF LABS, ECG & MEDICAL DATA BMP reviewed Sodium 135, potassium 4.6, BUN 21, creatinine 0.8 Physical Exam Vitals: Intake and Output 08/25/20 08/26/20 08/26/20 22:59 06:59 14:59 Intake Total 30 120 Balance 30 120 Intake: IV 30 120 Past Medical History Past Medical History: Atrial Fibrillation, Cancer, Fibromyalgia, GERD/Reflux, Hypertension, Memory Impairment, Osteoarthritis (OA) Additional Past Medical History / Comment(s): Vertigo, Sjogren's Syndrome, leaky valve, IBS, Trigeminal neuralgia, difficulty swallowing large pills. Bleeds easily. Hx Skin cancer on nose. 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 Restless Leg Syndrome. Pain in right leg and hip (Bone on Bone in right hip). History of Any Multi-Drug Resistant Organisms: None Reported Past Surgical History: Breast Surgery, Cholecystectomy, Hysterectomy, Orthopedic Surgery, Tonsillectomy Additional Past Surgical History / Comment(s): Bilateral knee arthroscopies, right rotator cuff repair, bilateral cataracts removed, right wrist cyst removed, 2 right breast biopies, 1 left breast biopsy. Past Anesthesia/Blood Transfusion Reactions: Motion Sickness Additional Past Anesthesia/Blood Transfusion Reaction / Comment(s): "A little goes a long way." Claustrophobia. Smoking Status: Never smoker - Past Family History Mother Family Medical History: CVA/TIA Father Family Medical History: Congestive Heart Failure (CHF), Dementia Sister(s) Family Medical History: Cancer Additional Family Medical History / Comment(s): Colon cancer, precancerous breast cancer. Brother(s) Family Medical History: Cancer Additional Family Medical History / Comment(s): Lung cancer. Physical Examination Intake and Output 08/25/20 08/26/20 08/26/20 22:59 06:59 14:59 Intake Total 30 120 Balance 30 120 Intake: IV 30 120 Results 08/26/20 06:40 Comprehensive Metabolic Panel 08/26/20 Range/Units 06:40 Sodium 135 L (137-145) mmol/L Potassium 4.6 (3.5-5.1) mmol/L Chloride 102 (98-107) mmol/L Carbon Dioxide 28 (22-30) mmol/L BUN 21 H (7-17) mg/dL Creatinine 0.79 (0.52-1.04) mg/dL Glucose 116 H (74-99) mg/dL Calcium 9.2 (8.4-10.2) mg/dL Current Medications Generic Name Dose Route Start Last Admin Trade Name Freq PRN Reason Stop Dose Admin Sodium Chloride 1,000 mls @ 50 mls/hr 08/26/20 05:31 08/26/20 06:35 Saline 0.9% IV 150 mls .Q20H [place] Administration Lactated Ringer's 1,000 mls @ 20 mls/hr 08/26/20 05:31 Lactated Ringers IV .Q24H [place] Intake and Output 08/25/20 08/26/20 08/26/20 22:59 06:59 14:59 Intake Total 30 120 Balance 30 120 Intake: IV 30 120 08/26/20 06:40
--- NOTE | 2020-08-26 07:59 | P.PRLE ---
RE: Maxine Manriquez Letter to Dr. Villa , Dear Sandro Goodmna underwent successful electrical cardioversion for persistent symptomatic atrial fibrillation. She is on amiodarone 200 mg by mouth daily Plan Continue ELIQUIS 2.5 mg twice daily Continue amiodarone 200 mg daily for 3 months and then reduce to 100 mg daily thereafter Continue metoprolol 25 mg twice daily Continue Lasix 20 mg daily Continue clonidine patch TTS 1 daily
--- NOTE | 2020-08-26 08:00 | P.EPPROC ---
- EP Procedure Note Electrophysiology Procedure Note: Procedure Electrical cardioversion for atrial fibrillation, symptomatic, persistent Patient underwent 200 mg of amiodarone Details Successful electrical cardioversion, 200 J biphasic shock, AP configuration patient converted to sinus rhythm with PACs Plan Continue ELIQUIS 2.5 mg twice daily Continue amiodarone 200 mg daily for 3 months and then reduce 200 mg daily thereafter Continue metoprolol 25 mg twice daily Continue Lasix 20 mg daily Continue clonidine patch TTS 1 daily
[2020-08-26 09:07] VITALS: BP 141/75; PULSE 66; RESP 16
--- NOTE | 2020-10-31 17:59 | P.EPPROC ---
- EP Procedure Note Electrophysiology Procedure Note: Diagnosis Persistent symptomatic atrial fibrillation Procedure performed Electrical cardioversion Patient is on amiodarone 200 mg by mouth daily as well as ELIQUIS Details 360 J biphasic shock was used to cardio with patient to sinus rhythm successfully Plan Continue ELIQUIS 2.5 mg twice daily Continue amiodarone 200 mg daily for 3 months and then reduce to 100 mg by mouth daily Continue metoprolol twice daily Continue Lasix 20 mg daily Continue clonidine patch TTS 1
== END | disposition home or self-care (01) ==
LOC: CATHEP 06:10
PROVIDERS: ATTEND Internal Medicine Clinical Cardiac Electrophysiology
DX: I48.19 Other persistent atrial fibrillation (principal); I10 Essential (primary) hypertension; I35.1 Nonrheumatic aortic (valve) insufficiency; I49.3 Ventricular premature depolarization; M79.7 Fibromyalgia; K21.9 Gastro-esophageal reflux disease without esophagitis; R41.3 Other amnesia; M19.90 Unspecified osteoarthritis, unspecified site; M35.00 Sjogren syndrome, unspecified; K58.9 Irritable bowel syndrome, unspecified; Z85.828 Personal history of other malignant neoplasm of skin; G25.81 Restless legs syndrome; G50.0 Trigeminal neuralgia; Z98.41 Cataract extraction status, right eye; Z98.42 Cataract extraction status, left eye; Z98.890 Other specified postprocedural states; F40.240 Claustrophobia; Z82.49 Family history of ischemic heart disease and other diseases of the circulatory system; Z80.0 Family history of malignant neoplasm of digestive organs; Z80.3 Family history of malignant neoplasm of breast; Z80.1 Family history of malignant neoplasm of trachea, bronchus and lung; Z79.01 Long term (current) use of anticoagulants; Z79.899 Other long term (current) drug therapy; F41.9 Anxiety disorder, unspecified; Z88.6 Allergy status to analgesic agent; Z88.0 Allergy status to penicillin; Z88.8 Allergy status to other drugs, medicaments and biological substances
CPT/HCPCS: 92960; 93005; 80048; J2704

== ENCOUNTER 2020-10-15 15:45 | Emergency (ER) | payer MEDICARE ==
[2020-10-15 15:53] VITALS: PULSE 77; TEMP 98.1
--- NOTE | 2020-10-15 17:04 | XR ---
EXAMINATION TYPE: XR Hip LT and AP Pelvis DATE OF EXAM: 10/15/2020 COMPARISON: NONE HISTORY: Falling injury with pelvic and left hip pain. TECHNIQUE: A single AP view of the pelvis is obtained. Two views of the left hip are obtained. FINDINGS: There is no acute fracture/dislocation evident in the pelvis. Slight asymmetric narrowing left sacroiliac joint may be projectional. Pubic symphysis is intact. Advanced degenerative change ri ght hip joint with marked superior joint space loss, [id number] formation is present. Moderate to l arge-sized superior head and neck collar spur. Left hip joint shows [id number]-hj-[id number] axial joint spac e loss and acetabular spurring. Occasional scattered pelvic phlebolith. Two views of left hip show no acute fracture or dislocation. No focal lytic or sclerotic lesion seen in the proximal left femur. Subcentimeter soft tissue phleboliths left groin region noted. IMPRESSION: There is no acute fracture or dislocation in the pelvis or left hip.
--- NOTE | 2020-10-15 17:05 | CT ---
EXAMINATION TYPE: CT brain wo con DATE OF EXAM: 10/15/2020 HISTORY: fall injury with headache. CT DLP: 1027.4 mGycm. Automated Exposure Control for Dose Reduction was Utilized. TECHNIQUE: CT scan of the head is performed without contrast. COMPARISON: CT brain June 03, 2020. FINDINGS: There is no acute intracranial hemorrhage or midline shift identified. There is mild diff use ventricular and sulcal prominence consistent with diffuse age-related cerebral atrophy. There is moderate low-attenuation in the periventricular white matter consistent with chronic small vessel is chemic change. The calvarium is intact. The globes are intact and the visualized sinuses are clear. IMPRESSION: No acute intracranial hemorrhage or midline shift. There is mild diffuse age-related ce rebral atrophy and moderate chronic small vessel ischemic change redemonstrated. No significant judd ge from prior.
--- NOTE | 2020-10-15 17:06 | XR ---
EXAMINATION TYPE: XR knee complete LT DATE OF EXAM: 10/15/2020 CLINICAL HISTORY: Falling injury with pain. TECHNIQUE: Three views of the left knee are obtained. COMPARISON: None. FINDINGS: There is no acute fracture/dislocation evident in the left knee. Mild/moderate tricompartm ent joint space loss without significant spurring. The overlying soft tissue appears unremarkable. IMPRESSION: There is no acute fracture or dislocation in the left knee.
--- NOTE | 2020-10-15 17:27 | XR ---
EXAMINATION TYPE: XR wrist complete LT DATE OF EXAM: 10/15/2020 CLINICAL HISTORY: Falling injury with pain. TECHNIQUE: Frontal, lateral, scaphoid, and oblique images of the left wrist are obtained. COMPARISON: None FINDINGS: Osseous structures are demineralized. There is no acute fracture/dislocation evident in th e left wrist. Advanced narrowing with heterotopic bone formation at base of first metacarpal. Advanc ed narrowing and joint space sclerosis and triscaphe joint. The overlying soft tissue appears unremar kable. IMPRESSION: There is no acute fracture or dislocation in the left wrist.
--- NOTE | 2020-10-15 17:29 | ED ---
Fall HPI - General Chief Complaint: Fall Stated Complaint: Fall Time Seen by Provider: 10/15/20 16:18 Source: patient Mode of arrival: wheelchair - History of Present Illness Initial Comments: 85-year-old female presenting today for chief complaint of fall. Patient states that she was attempting to put a recycling bin and her trunk when she went to open it the trunk struck her causing her to fall over her left side. Patient states she pain in her left groin and hip, as well as her left wrist. Patient denies any chest pain abdominal pain nausea vomiting she does states she did not hit her head she denies any neck pain visual changes speech changes weakness or sensation deficits of the upper or lower extremities. Patient denies any ankle pain she states she has some mild left knee pain. Patient denies a right hip or lower extremity pain. Patient denies additional areas of injury--she states she has been walking and able to use her wrists and get aroudn with her walker. Patient went to urgent care where she was told to come here because she was on eliquis. - Related Data Home Medications Medication Instructions Recorded Confirmed ALPRAZolam [Xanax] 0.125 mg PO TID@0900,1700,0000 11/10/15 08/26/20 Cholecalciferol [Vitamin D3 (25 5,000 unit PO DAILY 11/10/15 08/26/20 Mcg = 1000 Iu)] Dicyclomine HCl 10 mg PO BID PRN 11/10/15 08/20/20 Omeprazole 40 mg PO QAM 11/10/15 08/26/20 Vit C/E/Zn/Coppr/Lutein/Zeaxan 1 cap PO BID@0900,1800 11/10/15 08/26/20 [Preservision Areds 2 Softgel] L.acidoph,Paracasei, B.lactis 1 cap PO BID@0900,1800 12/05/15 08/26/20 [Probiotic] Calcium Citrate 250 mg PO BID@0900,1800 06/02/20 08/26/20 Calm Magnesium Carbonate 41mg 1 scoop PO BID@0900,1800 06/02/20 08/26/20 Powder Jennifer Supplement 150mg(10mg 1 tab PO BID@0900,1800 06/02/20 08/26/20 Niacinamide W/10mg Inositol) Meclizine [Antivert] 6.25 mg PO BID PRN 06/02/20 08/20/20 Propylene Glycol/Peg 400/Pf 1 drop BOTH EYES QID PRN 06/02/20 08/26/20 [Systane 0.3-0.4% Eye Drop] Turmeric/Turmeric Root Extract 1 cap PO DAILY 06/02/20 08/26/20 [Turmeric 450-50 mg Capsule] Vitamin B Complex 1 cap PO DAILY 06/02/20 08/26/20 cloNIDine 0.1 MG/24HR PATCH 1 patch TRANSDERM TH 06/02/20 08/26/20 [Catapres-TTS] cycloSPORINE 0.05% OPHTH SOLN 1 drop BOTH EYES BID 06/02/20 08/26/20 [Restasis] Arnica Cream 1 applic TOPICAL HS 06/26/20 08/26/20 Amiodarone HCl [Pacerone] 200 mg PO DAILY 08/20/20 08/26/20 Previous Rx's Medication Instructions Recorded Apixaban [Eliquis] 2.5 mg PO BID #60 tab 06/03/20 Furosemide [Lasix] 20 mg PO DAILY #20 tab 06/04/20 Metoprolol Tartrate [Lopressor] 25 mg PO BID #60 tab 06/04/20 Potassium Chloride 10 meq PO DAILY #30 capsule.er 06/04/20 Allergies Allergy/AdvReac Type Severity Reaction Status Date / Time amlodipine besylate Allergy Unknown Verified 10/15/20 15:53 [From Norvasc] atorvastatin calcium Allergy Unknown Verified 10/15/20 15:53 [From Lipitor] citalopram hydrobromide Allergy Unknown Verified 10/15/20 15:53 [From Celexa] clonazepam [From Klonopin] Allergy Unknown Verified 10/15/20 15:53 lisinopril [From Prinivil] Allergy Unknown Verified 10/15/20 15:53 moxifloxacin HCl Allergy Unknown Verified 10/15/20 15:53 [From Avelox] nitrofurantoin Allergy Unknown Verified 10/15/20 15:53 Penicillins Allergy Unknown Verified 10/15/20 15:53 simvastatin Allergy Unknown Verified 10/15/20 15:53 Sulfa (Sulfonamide Allergy Unknown Verified 10/15/20 15:53 Antibiotics) Tetracyclines Allergy Unknown Verified 10/15/20 15:53 aspirin AdvReac Unknown Verified 10/15/20 15:53 muscle relaxors Allergy Unknown Uncoded 10/15/20 15:53 bandaids AdvReac Skin Uncoded 10/15/20 15:53 isssues Review of Systems ROS Statement: Those systems with pertinent positive or pertinent negative responses have been documented in the HPI. ROS Other: All systems not noted in ROS Statement are negative. Past Medical History Past Medical History: Atrial Fibrillation, Cancer, Fibromyalgia, GERD/Reflux, Hypertension, Memory Impairment, Osteoarthritis (OA) Additional Past Medical History / Comment(s): Vertigo, Sjogren's Syndrome, leaky valve, IBS, Trigeminal neuralgia, difficulty swallowing large pills. Bleeds easily. Hx Skin cancer on nose. 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 Restless Leg Syndrome. Pain in right leg and hip (Bone on Bone in right hip). History of Any Multi-Drug Resistant Organisms: None Reported Past Surgical History: Ablation, Breast Surgery, Cholecystectomy, Hysterectomy, Orthopedic Surgery, Tonsillectomy Additional Past Surgical History / Comment(s): Bilateral knee arthroscopies, right rotator cuff repair, bilateral cataracts removed, right wrist cyst removed, 2 right breast biopies, 1 left breast biopsy. Past Anesthesia/Blood Transfusion Reactions: Motion Sickness Additional Past Anesthesia/Blood Transfusion Reaction / Comment(s): "A little goes a long way." Claustrophobia. Past Psychological History: Anxiety Smoking Status: Never smoker Past Alcohol Use History: None Reported Past Drug Use History: None Reported - Past Family History Mother Family Medical History: CVA/TIA Father Family Medical History: Congestive Heart Failure (CHF), Dementia Sister(s) Family Medical History: Cancer Additional Family Medical History / Comment(s): Colon cancer, precancerous breast cancer. Brother(s) Family Medical History: Cancer Additional Family Medical History / Comment(s): Lung cancer. General Exam - General Exam Comments Initial Comments: General: The patient is awake and alert, in no distress, and does not appear acutely ill. Eye: +3 mm pupils are equal, round and reactive to light, extra-ocular movements are intact. No nystagmus. There is normal conjunctiva bilaterally. No signs of icterus. Ears, nose, mouth and throat: There are moist mucous membranes and no oral lesions. No raccoon or Hooper sign Neck: The neck is supple, there is no tenderness or JVD. No midline tenderness to palpation of the cervical spine Cardiovascular: There is a regular rate and rhythm. No murmur, rub or gallop is appreciated. Respiratory: Lungs are clear to auscultation, respirations are non-labored, breath sounds are equal. No wheezes, stridor, rales, or rhonchi. Gastrointestinal: Soft, non-distended, non-tender abdomen without masses or organomegaly noted. There is no rebound or guarding present. No CVA tenderness. No flank ecchymosis no back ecchymosis Musculoskeletal: Small bruise on left lateral hip. No other areas of bruising or swelling noted. Patient has some tenderness to palpation of the wrist but there is no anatomical snuffbox tenderness. Patient is able to fully range all joints of the upper or lower extremity including the left hip and left wrist and left knee. Extensor mechanism intact patient is able to weight-bear and ambulate. As well as use her walker and place we on the left wrist. Compartments soft and compressible the upper or lower extremities strength preserved of the affected joints patient he'll make the okay fingers crossed thumbs-up and oppose the small digit and thumb Sensation intact. Raidal and DP pulses equal bilaterally 2+. Neurological: A&O x 3. CN II-XII intact, There are no obvious motor or sensory deficits. Coordination appears grossly intact. Speech is normal. Skin: Skin is warm and dry and no rashes or lesions are noted. Psychiatric: Cooperative, appropriate mood & affect, normal judgment. Limitations: no limitations Course Vital Signs 10/15/20 10/15/20 15:49 17:40 Temperature 98.1 F Pulse Rate 77 77 Respiratory 18 16 Rate Blood Pressure 207/113 194/112 O2 Sat by Pulse 97 94 L Oximetry Medical Decision Making - Medical Decision Making Imaging (-). No abdominal pain. No bruising on flank/ribs/back. Patient vascular intact. She is able to weight-bear. CT brain negative. At this time feel patient is stable for discharge with outpatient primary care follow-up. If pain is persistent in the left wrist she is to follow-up with orthopedic surgery. Case discussed with Dr. Cespedes who is agreeable to care plan discharge. Disposition Clinical Impression: Fall, Left hip pain, Left wrist pain, Left knee pain Disposition: HOME SELF-CARE Condition: Good Instructions (If sedation given, give patient instructions): R.I.C.E. Treatment (ED) Additional Instructions: Please use medication as discussed. Please follow-up with family doctor in the next 2 days. Please return to emergency room if the symptoms increase or worsen or for any other concerns. Is patient prescribed a controlled substance at d/c from ED?: No Referrals: Sandro Rosen MD [Primary Care Provider] - 1-2 days Time of Disposition: 17:28
[2020-10-15 17:46] VITALS: BP 194/112; RESP 16
== END 2020-10-15 17:56 | disposition home or self-care (01) ==
LOC: EC 15:45
DX: M25.562 Pain in left knee (principal); M25.532 Pain in left wrist; M25.552 Pain in left hip; I10 Essential (primary) hypertension; I48.91 Unspecified atrial fibrillation; K21.9 Gastro-esophageal reflux disease without esophagitis; F41.9 Anxiety disorder, unspecified; M19.90 Unspecified osteoarthritis, unspecified site; Z79.01 Long term (current) use of anticoagulants; Z79.899 Other long term (current) drug therapy; Z88.0 Allergy status to penicillin; W19.XXXA Unspecified fall, initial encounter
CPT/HCPCS: 70450; 73502; 99284

== ENCOUNTER → 2020-11-15 | Outpatient (CLI) | payer MEDICARE ==
--- NOTE | 2020-11-15 16:26 | US ---
EXAMINATION TYPE: US Neck soft tissue. DATE OF EXAM: 11/15/2020 COMPARISON: NONE CLINICAL HISTORY: 85-year-old female R22.1 neck mass. Prior palpable to left of the midline. FINDINGS: Director Of Physiotherapy Services notes: Left neck scanned: Left mid neck lymph node is imaged = 1.1 x 0.5 x 0.3cm. At see ent's area of concern just left of neck midline small lymph node is seen = 0.7 x 0.7 x 0.4cm. IMPRESSION: A couple small lymph nodes noted along the left side of the neck. Along the left of midline correspon ding to the patient's site of palpable concern, there is a small 7 mm short axis lymph node. If any e nlarging abnormality is noted, CT can be performed.
== END | disposition home or self-care (01) ==
LOC: RADUSWWP 14:48
PROVIDERS: ATTEND Family Medicine
DX: R59.0 Localized enlarged lymph nodes (principal)
CPT/HCPCS: 76536

== ENCOUNTER → 2020-11-21 | Outpatient (CLI) | payer MEDICARE ==
--- NOTE | 2020-11-22 07:10 | CT ---
EXAMINATION TYPE: CT soft tissue neck wo con DATE OF EXAM: 11/21/2020 HISTORY: Thyroid nodule, area of concern by patient marked on LT side with BB. Pt c/o scratchy throat , LT side neck pain. Pt dental work could not be removed. Pt suffers from head tremors COMPARISON: Ultrasound neck November 25, 2020. MRI cervical spine February 26, 2011. CT DLP: 274.10 mGycm. Automated Exposure Control for Dose Reduction was Utilized. TECHNIQUE: CT scan of the neck is performed without contrast, axial images are obtained, coronal and sagittal reformatted images are reviewed. FINDINGS: Lack of IV contrast was noted to Limited evaluation for mucosal lesions and subcentimeter l ymph nodes. Airway: Mild biapical pleural/parenchymal scarring. Parotid/submandibular glands: No gross abnormality seen. Carotid/Vascular Structures: Suspect ascending aortic aneurysm up to 4.0 cm in diameter partially beatriz ged. Medial course to the carotid arteries noted in retropharyngeal location. Mild peripheral calcifi ed plaque at the level carotid bulbs bilaterally. Osseous Structures: Slight scoliotic curvature or positioning redemonstrated . Other: Metallic BB placed at level of palpable abnormality left neck at level of hyoid bone axial beatriz ge 41. No concerning solid or cystic mass or abnormal fluid collection is seen at this level. Parapha ryngeal fat spaces are maintained bilaterally superior to this. There are some prominent but subcenti meter lymph nodes greater in size on the neck superior to this reference axial image 50. No definitiv e abnormal greater than 1 cm neck adenopathy. IMPRESSION: Suboptimal study due to lack of IV contrast. No obvious concerning mass or adenopathy. CT findings correlate with recent ultrasound.
== END | disposition home or self-care (01) ==
LOC: RADCTMAIN 15:53
PROVIDERS: ATTEND Family Medicine
DX: E04.1 Nontoxic single thyroid nodule (principal)
CPT/HCPCS: 70490

== ENCOUNTER 2022-08-27 23:43 | Inpatient (IN) | payer MEDICARE ==
[2022-08-28] MEDS ORDERED: SODIUM CHLORIDE 0.9% 500 ML 500 ML IV STA (00:27)
[2022-08-28] MEDS ORDERED: hydrALAZINE HCL 20 MG/ML 1 ML VIAL IVP STA ×2 (00:27→01:33)
[2022-08-28] MEDS ORDERED: MORPHINE SULFATE 2 MG/ML SYRINGE IVP STA (00:27)
[2022-08-28 01:08] LABS: Appearance,Urine Clear (Clear); Bilirubin,Urine Negative (Negative); Blood,Urine Negative (Negative); Color,Urine Colorless; Glucose,Urine (UA) Negative (Negative); Ketones,Urine Negative (Negative); Leukocyte Esterase,Urine Negative (Negative); Nitrite,Urine Negative (Negative); PH, Urine 7.5 (5.0-8.0); Protein,Urine Negative (Negative); Specific Gravity,Urine 1.004 (1.001-1.035); Urobilinogen,Urine <2.0 mg/dL (<2.0)
[2022-08-28 01:23] LABS: Basophils % (A) 0 %; Eosinophils % (A) 0 %; HCT 36.6 % (34.0-46.0); HGB 12.5 gm/dL (11.4-16.0); Lymphocytes # (A) 0.7 k/uL (1.0-4.8); Lymphocytes % (A) 11 %; MCH 29.9 pg (25.0-35.0); MCV 87.7 fL (80.0-100.0); Mean Platelet Volume 7.7; Monocytes # (A) 0.3 k/uL (0-1.0); Monocytes % (A) 5 %; Neutrophils # (A) 5.1 k/uL (1.3-7.7); Neutrophils % (A) 82 %; Platelet Count 193 k/uL (150-450); RBC 4.17 m/uL (3.80-5.40); RDW 13.4 % (11.5-15.5); WBC 6.2 k/uL (3.8-10.6)
--- NOTE | 2022-08-28 01:34 | CT ---
EXAMINATION TYPE: CT brain wo con DATE OF EXAM: 08/28/2022 COMPARISON: 10/15/2020 HISTORY: HEADACHE, HTN, ON THINNERS CT DLP: 1092 mGycm Automated exposure control for dose reduction was used. Images obtained of the brain with no contrast. There is cerebral cortical atrophy. There is no mass effect or midline shift. No sign of intracranial hemorrhage. Calvarium is intact. There is normal aeration of the mastoid sinuses. Skull base is inta ct. IMPRESSION: Cerebral atrophy. No acute intracranial abnormality. There is some mild chronic small vessel ischemia . There is progression of white matter disease compared to old exam.
--- NOTE | 2022-08-28 01:35 | XR ---
EXAMINATION TYPE: XR chest 1V portable DATE OF EXAM: 08/28/2022 COMPARISON: 06/04/2020 HISTORY: Weakness TECHNIQUE: FINDINGS: Heart is top normal in size. Lungs are clear of infiltrate. No heart failure. There are no hilar masses. There are chest leads. Costophrenic angles are clear. IMPRESSION: No active cardiopulmonary disease. There is clearing of the pleural effusions compared to old exam. There is clearing of the pulmonary congestion.
[2022-08-28 01:36] LABS: ALT 28 U/L (4-34); AST 34 U/L (14-36); African American GFR (CKD) >90 (>60 ml/min/1.73 sqM); Albumin 4.7 g/dL (3.5-5.0); Alkaline Phosphatase 118 U/L (38-126); Anion Gap 7 mmol/L; Blood Urea Nitrogen 13 mg/dL (7-17); Calcium 9.3 mg/dL (8.4-10.2); Carbon Dioxide 28 mmol/L (22-30); Chloride 99 mmol/L (98-107); Glucose 127 mg/dL (74-99); Magnesium 2.2 mg/dL (1.6-2.3); Non-African American GFR(CKD) 85 (>60 ml/min/1.73 sqM); Partial Thromboplastin Time 27.4 sec (22.0-30.0); Potassium 4.3 mmol/L (3.5-5.1); Prothrombin Time 10.6 sec (9.0-12.0); Sodium 134 mmol/L (137-145); Total Bilirubin 0.5 mg/dL (0.2-1.3); Total Protein 7.5 g/dL (6.3-8.2)
--- NOTE | 2022-08-28 01:46 | CT ---
EXAMINATION TYPE: CT angio head neck DATE OF EXAM: 08/28/2022 COMPARISON: None HISTORY: HEADACHE, HTN, ON THINNERS CT DLP: 374.7 mGycm Automated exposure control for dose reduction was used. CONTRAST: Performed with IV Contrast, patient injected with 65 mL of Isovue 370. Images obtained from the aortic arch to the vertex of the brain with the IV contrast. There are 3-D p ost processed images. There is normal branching pattern of the great vessels of the aortic arch. There is bilateral arteria l flow in the subclavian arteries. 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 No dissection There is arterial flow in the common internal and external carotid arteries bilaterally. There is wid ening patency of the carotid artery bifurcations. No evidence of any significant plaque formation. Th ere is arterial flow in both vertebral arteries. There is arterial flow in the vertebrobasilar artery system. No evidence of carotid or vertebral louise ry aneurysm or dissection. There is arterial flow in the anterior middle and posterior cerebral arteries bilaterally. No evidenc e of intracranial aneurysm or neovascularity. No mass effect. No evidence of intracranial arterial st enosis. There is normal enhancement of the venous sinuses. IMPRESSION: Negative CT angiogram of the head and neck. No evidence of arterial stenosis. 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
[2022-08-28] MEDS ORDERED: LORazepam 2 MG/ML INJ IV STA (01:57)
[2022-08-28] MEDS ORDERED: ACETAMINOPHEN TAB 325 MG TAB PO PRN (02:49)
[2022-08-28] MEDS ORDERED: NALOXONE 0.4 MG/ML 1 ML VIAL IV PRN (02:49)
--- NOTE | 2022-08-28 02:55 | P.HPIM ---
History of Present Illness H&P Date: 08/28/22 The patient is an 87-year-old female with a PMH of chronic A. fib, Sjogren's syndrome, fibromyalgia, IBS, trigeminal neuralgia, diastolic CHF, hypertension, restless leg syndrome, and anxiety, who was brought into the emergency room by her son and [id number] for multiple complaints. The patient reports that all day today, she has been feeling ofavague diffuse chest discomfort as well as being more anxious. She reports being unable to get comfortable in the bed due to her restless leg syndrome. She further reports ongoing mild diffuse chest discomfort, unable to quantify, with some associated shortness of breath without nausea, diaphoresis, or palpitations. She denied experiencing fever, chills, abdominal pain, diarrhea. The patient has a long-standing history of anxiety with states that her chest discomfort is new. EKG in the emergency room revealed sinus rhythm and first-degree AV block at 85 bpm with T-wave flattening in lead V2. CT angiogram of head and neck revealed a 4.1 cm aneurysm of the ascending aorta without dissection. CT brain revealed chronic small vessel dis ease. Chest x-ray was also unremarkable. Laboratory evaluation was remarkable for troponin 0.025. The patient's blood pressure was also elevated and was 179/92 at the time of evaluation. Review of systems: Pertinent positives and negatives as discussed in HPI, a complete review of systems was performed and all other systems are negative. Physical examination: General: Anxious-appearing female, no distress, appears at stated age, normal weight Derm: no unusual rashes/lesions, warm Head: atraumatic, normocephalic, symmetric Eyes: EOMI, no lid lag, anicteric sclera, pupils equal round reactive to light ENT: Nose and ears atraumatic Neck: No cervical lymphadenopathy, trachea midline, supple Mouth: no lip lesion, mucus membranes moist Cardiovascular: S1S2 reg, no murmur, positive dorsalis pedis pulse bilateral, no edema Lungs: CTA bilateral, no rhonchi, no rales, no accessory muscle use Abdominal: soft, nontender to palpation, no guarding Ext: muscle strength 5 out of 5 in all 4 extremities grossly, no gross muscle atrophy, no contractures, Neuro: CN II-XI grossly intact, no gross focal neuro deficits Psych: Alert, oriented, anxious affect Assessment/plan Chest pain, rule out ACS -Trend troponin -Cardiology consulted -Cardiac monitoring -Continue with aspirin, statin Anxiety -Patient reports taking Xanax 3 times a day at home which did not alleviate her symptoms today -Psychiatry consult Chronic conditions: A. fib, hypertension, diastolic CHF, restless leg syndrome, Sjogren's disease -Continue with home meds DVT prophylaxis -Eliquis The patient is admitted with an anticipated less than 2 midnight stay for evaluation of chest pain CODE STATUS: Full Code Discussed with: Patient, son, [id number] Anticipated discharge date: In a.m. Anticipated discharge place: Home a Past Medical History Past Medical History: Atrial Fibrillation, Cancer, Heart Failure, Fibromyalgia, GERD/Reflux, Hypertension, Memory Impairment, Osteoarthritis (OA) Additional Past Medical History / Comment(s): Vertigo, Sjogren's Syndrome, leaky valve, IBS, Trigeminal neuralgia, difficulty swallowing large pills. Bleeds ea sily. Hx Skin cancer on nose. 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 Restless Leg Syndrome. Pain in right leg and hip (Bone on Bone in right hip). History of Any Multi-Drug Resistant Organisms: None Reported Past Surgical History: Ablation, Breast Surgery, Cholecystectomy, Hysterectomy, Orthopedic Surgery, Tonsillectomy Additional Past Surgical History / Comment(s): Bilateral knee arthroscopies, right rotator cuff repair, bilateral cataracts removed, right wrist cyst removed, 2 right breast biopies, 1 left breast biopsy. Past Anesthesia/Blood Transfusion Reactions: Motion Sickness Additional Past Anesthesia/Blood Transfusion Reaction / Comment(s): "A little goes a long way." Claustrophobia. Past Psychological History: Anxiety Smoking Status: Never smoker Past Alcohol Use History: None Reported Past Drug Use History: None Reported - Past Family History Mother Family Medical History: CVA/TIA Father Family Medical History: Congestive Heart Failure (CHF), Dementia Sister(s) Family Medical History: Cancer Additional Family Medical History / Comment(s): Colon cancer, precancerous breast cancer. Brother(s) Family Medical History: Cancer Additional Family Medical History / Comment(s): Lung cancer. Medications and Allergies Home Medications Medication Instructions Recorded Confirmed Type ALPRAZolam [Xanax] 0.125 mg PO TID@0900,1700,0000 11/10/15 08/26/20 History Cholecalciferol [Vitamin D3 (25 5,000 unit PO DAILY 11/10/15 08/26/20 History Mcg = 1000 Iu)] Dicyclomine HCl 10 mg PO BID PRN 11/10/15 08/20/20 History Omeprazole 40 mg PO QAM 11/10/15 08/26/20 History Vit C/E/Zn/Coppr/Lutein/Zeaxan 1 cap PO BID@0900,1800 11/10/15 08/26/20 History [Preservision Areds 2 Softgel] L.acidoph,Paracasei, B.lactis 1 cap PO BID@0900,1800 12/05/15 08/26/20 History [Probiotic] Calcium Citrate 250 mg PO BID@0900,1800 06/02/20 08/26/20 History Calm Magnesium Carbonate 41mg 1 scoop PO BID@0900,1800 06/02/20 08/26/20 History Powder Jennifer Supplement 150mg(10mg 1 tab PO BID@0900,1800 06/02/20 08/26/20 History Niacinamide W/10mg Inositol) Meclizine [Antivert] 6.25 mg PO BID PRN 06/02/20 08/20/20 History Propylene Glycol/Peg 400/Pf 1 drop BOTH EYES QID PRN 06/02/20 08/26/20 History [Systane 0.3-0.4% Eye Drop] Turmeric/Turmeric Root Extract 1 cap PO DAILY 06/02/20 08/26/20 History [Turmeric 450-50 mg Capsule] Vitamin B Complex 1 cap PO DAILY 06/02/20 08/26/20 History cloNIDine 0.1 MG/24HR PATCH 1 patch TRANSDERM TH 06/02/20 08/26/20 History [Catapres-TTS] cycloSPORINE 0.05% OPHTH SOLN 1 drop BOTH EYES BID 06/02/20 08/26/20 History [Restasis] Apixaban [Eliquis] 2.5 mg PO BID #60 tab 06/03/20 08/26/20 Rx Furosemide [Lasix] 20 mg PO DAILY #20 tab 06/04/20 08/26/20 Rx Metoprolol Tartrate [Lopressor] 25 mg PO BID #60 tab 06/04/20 08/26/20 Rx Potassium Chloride [Potassium 10 meq PO DAILY #30 capsule.er 06/04/20 08/26/20 Rx Chloride ER] Arnica Cream 1 applic TOPICAL HS 06/26/20 08/26/20 History Amiodarone HCl [Pacerone] 200 mg PO DAILY 08/20/20 08/26/20 History Allergies Allergy/AdvReac Type Severity Reaction Status Date / Time amlodipine besylate Allergy Unknown Verified 08/27/22 23:56 [From Norvasc] atorvastatin calcium Allergy Unknown Verified 08/27/22 23:56 [From Lipitor] citalopram hydrobromide Allergy Unknown Verified 08/27/22 23:56 [From Celexa] clonazepam [From Klonopin] Allergy Unknown Verified 08/27/22 23:56 lisinopril [From Prinivil] Allergy Unknown Verified 08/27/22 23:56 moxifloxacin HCl Allergy Unknown Verified 08/27/22 23:56 [From Avelox] nitrofurantoin Allergy Unknown Verified 08/27/22 23:56 Penicillins Allergy Unknown Verified 08/27/22 23:56 simvastatin Allergy Unknown Verified 08/27/22 23:56 Sulfa (Sulfonamide Allergy Unknown Verified 08/27/22 23:56 Antibiotics) Tetracyclines Allergy Unknown Verified 08/27/22 23:56 aspirin AdvReac Unknown Verified 08/27/22 23:56 muscle relaxors Allergy Unknown Uncoded 08/27/22 23:56 bandaids AdvReac Skin Uncoded 08/27/22 23:56 isssues Physical Exam Vitals: Vital Signs Temp Pulse Resp BP Pulse Ox 08/27/22 23:56 97.1 F L 75 18 212/117 98 Intake and Output 08/27/22 08/27/22 08/28/22 14:59 22:59 06:59 Other: Weight 58.967 kg Results CBC & Chem 7: 08/28/22 01:00 08/28/22 01:00 Labs: Abnormal Lab Results - Last 24 Hours (Table) 08/28/22 08/28/22 Range/Units 01:00 01:00 Lymphocytes # 0.7 L (1.0-4.8) k/uL Sodium 134 L (137-145) mmol/L Glucose 127 H (74-99) mg/dL
--- NOTE | 2022-08-28 03:15 | ED ---
General Adult HPI - General Chief complaint: Weakness Stated complaint: Weakness, BP issues Time Seen by Provider: 08/28/22 00:04 Source: patient, family, RN notes reviewed, old records reviewed Mode of arrival: ambulatory Limitations: no limitations - History of Present Illness Initial comments: Patient is an 87 year old female with past medical history remarkable for anxiety, atrial fibrillation on Eliquis, heart failure, fibromyalgia, hypertension, IBS, Sjogren's syndrome, chronic chest pain, chronic episodes of intermittent hypertension, chronic weakness who presents emergency Department complaining of some chronic complaints that seem to be somewhat more persistent today. Primary complaints are as follows, they include nonspecific chest pain that appears to be chest wall pain that she describes as a sharp sensation that radiates out from her sternum and is palpable. Patient also is complaining of a headache which she gets on a daily basis, and describes it as not the worst headache of her life and generalized felt tightening sensation over.. Patient is also complaining of high blood pressure which is her primary complaint, but she does have these episodes were she has periods of elevated blood pressure at home. She also complains of her chronic crampy abdominal pain which is baseline for her. She states she is very anxious. She states she is weak all over. States his symptoms are all chronic for her. Family brought her in because they were concerned. His 1 further evaluation at this time. She denies any blurry vision. Denies any focal deficits but endorses generalized weakness. Denies any cough, fevers. Denies any urinary complaints. Denies any nausea or vomiting. Denies constipation. - Related Data Home Medications Medication Instructions Recorded Confirmed ALPRAZolam [Xanax] 0.125 mg PO TID@0900,1700,0000 11/10/15 08/26/20 Cholecalciferol [Vitamin D3 (25 5,000 unit PO DAILY 11/10/15 08/26/20 Mcg = 1000 Iu)] Dicyclomine HCl 10 mg PO BID PRN 11/10/15 08/20/20 Omeprazole 40 mg PO QAM 11/10/15 08/26/20 Vit C/E/Zn/Coppr/Lutein/Zeaxan 1 cap PO BID@0900,1800 11/10/15 08/26/20 [Preservision Areds 2 Softgel] L.acidoph,Paracasei, B.lactis 1 cap PO BID@0900,1800 12/05/15 08/26/20 [Probiotic] Calcium Citrate 250 mg PO BID@0900,1800 06/02/20 08/26/20 Calm Magnesium Carbonate 41mg 1 scoop PO BID@0900,1800 06/02/20 08/26/20 Powder Jennifer Supplement 150mg(10mg 1 tab PO BID@0900,1800 06/02/20 08/26/20 Niacinamide W/10mg Inositol) Meclizine [Antivert] 6.25 mg PO BID PRN 06/02/20 08/20/20 Propylene Glycol/Peg 400/Pf 1 drop BOTH EYES QID PRN 06/02/20 08/26/20 [Systane 0.3-0.4% Eye Drop] Turmeric/Turmeric Root Extract 1 cap PO DAILY 06/02/20 08/26/20 [Turmeric 450-50 mg Capsule] Vitamin B Complex 1 cap PO DAILY 06/02/20 08/26/20 cloNIDine 0.1 MG/24HR PATCH 1 patch TRANSDERM TH 06/02/20 08/26/20 [Catapres-TTS] cycloSPORINE 0.05% OPHTH SOLN 1 drop BOTH EYES BID 06/02/20 08/26/20 [Restasis] Arnica Cream 1 applic TOPICAL HS 06/26/20 08/26/20 Amiodarone HCl [Pacerone] 200 mg PO DAILY 08/20/20 08/26/20 Previous Rx's Medication Instructions Recorded Apixaban [Eliquis] 2.5 mg PO BID #60 tab 06/03/20 Furosemide [Lasix] 20 mg PO DAILY #20 tab 06/04/20 Metoprolol Tartrate [Lopressor] 25 mg PO BID #60 tab 06/04/20 Potassium Chloride [Potassium 10 meq PO DAILY #30 capsule.er 06/04/20 Chloride ER] Allergies Allergy/AdvReac Type Severity Reaction Status Date / Time amlodipine besylate Allergy Unknown Verified 08/27/22 23:56 [From Norvasc] atorvastatin calcium Allergy Unknown Verified 08/27/22 23:56 [From Lipitor] citalopram hydrobromide Allergy Unknown Verified 08/27/22 23:56 [From Celexa] clonazepam [From Klonopin] Allergy Unknown Verified 08/27/22 23:56 lisinopril [From Prinivil] Allergy Unknown Verified 08/27/22 23:56 moxifloxacin HCl Allergy Unknown Verified 08/27/22 23:56 [From Avelox] nitrofurantoin Allergy Unknown Verified 08/27/22 23:56 Penicillins Allergy Unknown Verified 08/27/22 23:56 simvastatin Allergy Unknown Verified 08/27/22 23:56 Sulfa (Sulfonamide Allergy Unknown Verified 08/27/22 23:56 Antibiotics) Tetracyclines Allergy Unknown Verified 08/27/22 23:56 aspirin AdvReac Unknown Verified 08/27/22 23:56 muscle relaxors Allergy Unknown Uncoded 08/27/22 23:56 bandaids AdvReac Skin Uncoded 08/27/22 23:56 isssues Review of Systems ROS Statement: Those systems with pertinent positive or pertinent negative responses have been documented in the HPI. Review of Systems: CONST: Endorses anxiety EYES: Denies blurry vision ENT: Denies nasal congestion C/V: Endorses chest pain RESP: Denies shortness of breath GI: Endorses crampy abdominal pain : Denies dysuria SKIN: Denies rash. MSK: Denies joint pain. NEURO: Endorses headache ROS Other: All systems not noted in ROS Statement are negative. Past Medical History Past Medical History: Atrial Fibrillation, Cancer, Heart Failure, Fibromyalgia, GERD/Reflux, Hypertension, Memory Impairment, Osteoarthritis (OA) Additional Past Medical History / Comment(s): Vertigo, Sjogren's Syndrome, leaky valve, IBS, Trigeminal neuralgia, difficulty swallowing large pills. Bleeds easily. Hx Skin cancer on nose. 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 Restless Leg Syndrome. Pain in right leg and hip (Bone on Bone in right hip). History of Any Multi-Drug Resistant Organisms: None Reported Past Surgical History: Ablation, Breast Surgery, Cholecystectomy, Hysterectomy, Orthopedic Surgery, Tonsillectomy Additional Past Surgical History / Comment(s): Bilateral knee arthroscopies, right rotator cuff repair, bilateral cataracts removed, right wrist cyst removed, 2 right breast biopies, 1 left breast biopsy. Past Anesthesia/Blood Transfusion Reactions: Motion Sickness Additional Past Anesthesia/Blood Transfusion Reaction / Comment(s): "A little goes a long way." Claustrophobia. Past Psychological History: Anxiety Smoking Status: Never smoker Past Alcohol Use History: None Reported Past Drug Use History: None Reported - Past Family History Mother Family Medical History: CVA/TIA Father Family Medical History: Congestive Heart Failure (CHF), Dementia Sister(s) Family Medical History: Cancer Additional Family Medical History / Comment(s): Colon cancer, precancerous breas t cancer. Brother(s) Family Medical History: Cancer Additional Family Medical History / Comment(s): Lung cancer. General Exam - General Exam Comments Initial Comments: General: Appears extremely anxious. HEAD: Normal with no signs of head trauma. EYES: PERRLA, EOMI, conjunctiva normal, no discharge. Pupils are 3 mm and equal bilaterally. ENT: Hearing grossly intact, normal oropharynx. RESPIRATORY: Clear breath sounds bilaterally. No wheezes, rales, or rhonchi. C/V: Regular rate and rhythm. S1 and S2 auscultated, mild symmetrical bilateral pitting edema, peripheral pulses 2+ and intact throughout ABD: Abd is soft, nontender, nondistended EXT: Normal range of motion, no obvious deformity SKIN: No rashes or lesions observed on exposed skin. NEURO: Alert and oriented 4. No focal sensory strength deficits. GCS of 15. NIH of 0. Patient has generalized weakness. Limitations: no limitations Course Vital Signs 08/27/22 23:56 Temperature 97.1 F L Pulse Rate 75 Respiratory 18 Rate Blood Pressure 212/117 O2 Sat by Pulse 98 Oximetry Medical Decision Making - Medical Decision Making Based on the patient's presentation and physical exam, she presents with multiple complaints that all seemed to be chronic in nature and likely all stem from anxiety. However patient is very hypertensive at this time with systolics above 200 complaining of a headache as well as generalized weakness on blood thinners. She has no focal deficits but I did discuss with family members I would like to rule out causes for weakness such as infectious or cardiopulmonary which they were in agreement with. We will also obtain CT imaging of the brain to rule out any form of intracranial injury or stroke. They were in agreement with this plan. Patient will be administered IV hydralazine for blood pressure, as well as a small fluid bolus. I did offer the patient morphine for pain control which she refused. Patient was in agreement with this plan. Other than the patient's hypertension, vital signs within acceptable limits. EKGs showed no signs of acute ischemia. Chest x-ray revealed no acute cardi opulmonary process. CT brain revealed no evidence of acute intracranial injury, hemorrhage. CT angiogram of the brain, neck revealed no evidence of stenosis. There is a ascending aortic aneurysm of 4.1 cm that is otherwise uncomplicated. No evidence of dissection. Patient's laboratory studies are within acceptable limits including a troponin that is indeterminate. Urinalysis is within normal limits. Flu, RSV, Covid are negative. On reevaluation, after multiple doses of IV hydralazine patient's blood pressures in better control with systolics in the 170s. She is more anxious at this time and states that she hurts all over. She was interested IV Ativan at this time. I discussed the workup with her as well as her family make stress understanding and agreement that her anxiety is likely causing many of her current symptoms. It is poorly controlled. She is on Xanax at home but no long-term medications for maintenance medications. Has not talked with a psychiatrist previously. We did discuss it with her cardiac history, it scores moderate and I did recommend admission for monitoring. We'll check a troponin. They were in agreement this plan. Psychiatry will also be consulted. Cardiology will be consulted. Patient states that she is ALLERGIC to aspirin and therefore was not given it. I spoke with the admitting physician, Dr. Hobbs who was in agreement with the plan. Patient is admitted to observation. Was pt. sent in by a medical professional or institution (, PA, LAPPING MACHINE TENDER, urgent care, hospital, or detention...) When possible be specific @ -No Did you speak to anyone other than the patient for history (EMS, parent, family, police, friend...)? What history was obtained from this source @ -No Did you review nursing and triage notes (agree or disagree)? Why? @ -I reviewed and agree with nursing and triage notes Were old charts reviewed (outside hosp., previous admission, EMS record, old EKG, old radiological studies, urgent care reports/EKG's, detention records)? Report findings @ -Yes, I reviewed old EKGs, charts. Differential Diagnosis (chest pain, altered mental status, abdominal pain women, abdominal pain men, vaginal bleeding, weakness, fever, dyspnea, syncope, headac he, dizziness, GI bleed, back pain, seizure, CVA, palpatations, mental health)? @ -CVA, acute intracranial hemorrhage, poorly controlled hypertension, anxiety, CAD, ACS, infection. This list is not all inclusive. EKG interpreted by me (3pts min.). @ -As above X-rays interpreted by me (1pt min.). @ -Chest x-ray revealed no acute cardiopulmonary process. CT interpreted by me (1pt min.). @ -CT brain revealed no acute intracranial injury, hemorrhage. CT angiogram of the brain revealed no acute stenosis. There was an ascending aortic aneurysm that is uncomplicated. U/S interpreted by me (1pt. min.). @ -None done What testing was considered but not performed or refused? (CT, X-rays, U/S, labs)? Why? @ -None What meds were considered but not given or refused? Why? @ -Morphine for headache, however was refused. Did you discuss the management of the patient with other professionals (professionals i.e. , PA, LAPPING MACHINE TENDER, lab, RT, psych nurse, professor of social work, pulverizer, teacher, investment officer, casework specialist)? Give summary @ -Yes, admitting physician Dr. Hobbs who is in agreement with the plan. Was smoking cessation discussed for >3mins.? @ -No Was critical care preformed (if so, how long)? @ -Yes. 35 minutes. Were there social determinants of health that impacted care today? How? (Homelessness, low income, unemployed, alcoholism, drug addiction, transportation, low edu. Level, literacy, decrease access to med. care, [facility], rehab)? @ -No Was there de-escalation of care discussed even if they declined (Discuss DNR or withdrawal of care, Hospice)? DNR status @ -No What co-morbidities impacted this encounter? (DM, HTN, Smoking, COPD, CAD, Cancer, CVA, ARF, Chemo, Hep., AIDS, mental health diagnosis, sleep apnea, morbid obesity)? @ -Anxiety, hypertension, chronic debility Was patient admitted / discharged? Hospital course, mention meds given and route, prescriptions, significant lab abnormalities, going to OR and other pertinent info. @ -Admitted to the hospital. See above for ED course. Undiagnosed new problem with uncertain prognosis? @ -No Drug Therapy requiring intensive monitoring for toxicity (Heparin, Nitro, Insulin, Cardizem)? @ -No Were any procedures done? @ -No Diagnosis/symptom? @ -Anxiety Acute, or Chronic, or Acute on Chronic? @ -Acute on chronic Uncomplicated (without systemic symptoms) or Complicated (systemic symptoms)? @ -Complicated Side effects of treatment? @ -No Exacerbation, Progression, or Severe Exacerbation? @ -No Poses a threat to life or bodily function? How? (Chest pain, [place], [place], pneumonia, PE, COPD, DKA, ARF, appy, cholecystitis, CVA, Diverticulitis, Homicidal, Suicidal, threat to staff... and all critical care pts) @ -Yes, is causing elevated blood pressure which can cause significant m orbidity mortality. Diagnosis/symptom? @ -Hypertension, poorly controlled Acute, or Chronic, or Acute on Chronic? @ -Acute on chronic Uncomplicated (without systemic symptoms) or Complicated (systemic symptoms)? @ -Complicated Side effects of treatment? @ -none Exacerbation, Progression, or Severe Exacerbation] @ -no Poses a threat to life or bodily function? @ -no Diagnosis/symptom? @ -Chest pain Acute, or Chronic, or Acute on Chronic? @ -Acute Uncomplicated (without systemic symptoms) or Complicated (systemic symptoms)? @ -Uncomplicated Side effects of treatment? @ -none Exacerbation, Progression, or Severe Exacerbation] @ -no Poses a threat to life or bodily function? @ -Yes, could result in significant morbid a mortality Diagnosis/symptom? @ -Debility Acute, or Chronic, or Acute on Chronic? @ -Chronic Uncomplicated (without systemic symptoms) or Complicated (systemic symptoms)? @ -Uncomplicated Side effects of treatment? @ -none Exacerbation, Progression, or Severe Exacerbation] @ -no Poses a threat to life or bodily function? @ -no - Lab Data Result diagrams: 08/28/22 01:00 08/28/22 01:00 Lab Results 08/28/22 08/28/22 08/28/22 Range/Units 00:35 01:00 01:00 WBC 6.2 (3.8-10.6) k/uL RBC 4.17 (3.80-5.40) m/uL Hgb 12.5 (11.4-16.0) gm/dL Hct 36.6 (34.0-46.0) % MCV 87.7 (80.0-100.0) fL MCH 29.9 (25.0-35.0) pg MCHC 34.0 (31.0-37.0) g/dL RDW 13.4 (11.5-15.5) % Plt Count 193 (150-450) k/uL MPV 7.7 Neutrophils % 82 % Lymphocytes % 11 % Monocytes % 5 % Eosinophils % 0 % Basophils % 0 % Neutrophils # 5.1 (1.3-7.7) k/uL Lymphocytes # 0.7 L (1.0-4.8) k/uL Monocytes # 0.3 (0-1.0) k/uL Eosinophils # 0.0 (0-0.7) k/uL Basophils # 0.0 (0-0.2) k/uL PT 10.6 (9.0-12.0) sec INR 1.0 (<1.2) APTT 27.4 (22.0-30.0) sec Sodium (137-145) mmol/L Potassium (3.5-5.1) mmol/L Chloride (98-107) mmol/L Carbon Dioxide (22-30) mmol/L Anion Gap mmol/L BUN (7-17) mg/dL Creatinine (0.52-1.04) mg/dL Est GFR (CKD-EPI)AfAm (>60 ml/min/1.73 sqM) Est GFR (CKD-EPI)NonAf (>60 ml/min/1.73 sqM) Glucose (74-99) mg/dL Plasma Lactic Acid Severiano (0.7-2.0) mmol/L Calcium (8.4-10.2) mg/dL Magnesium (1.6-2.3) mg/dL Total Bilirubin (0.2-1.3) mg/dL AST (14-36) U/L ALT (4-34) U/L Alkaline Phosphatase (38-126) U/L Troponin I (0.000-0.034) ng/mL Total Protein (6.3-8.2) g/dL Albumin (3.5-5.0) g/dL Urine Color Colorless Urine Appearance Clear (Clear) Urine pH 7.5 (5.0-8.0) Ur Specific [place] 1.004 (1.001-1.035) Urine Protein Negative (Negative) Urine Glucose (UA) Negative (Negative) Urine Ketones Negative (Negative) Urine Blood Negative (Negative) Urine Nitrite Negative (Negative) Urine Bilirubin Negative (Negative) Urine Urobilinogen <2.0 (<2.0) mg/dL Ur Leukocyte Esterase Negative (Negative) Influenza Type A (PCR) (Not Detectd) Influenza Type B (PCR) (Not Detectd) RSV (PCR) (Not Detectd) SARS-CoV-2 (PCR) (Not Detectd) 08/28/22 08/28/22 08/28/22 Range/Units 01:00 01:00 01:00 WBC (3.8-10.6) k/uL RBC (3.80-5.40) m/uL Hgb (11.4-16.0) gm/dL Hct (34.0-46.0) % MCV (80.0-100.0) fL MCH (25.0-35.0) pg MCHC (31.0-37.0) g/dL RDW (11.5-15.5) % Plt Count (150-450) k/uL MPV Neutrophils % % Lymphocytes % % Monocytes % % Eosinophils % % Basophils % % Neutrophils # (1.3-7.7) k/uL Lymphocytes # (1.0-4.8) k/uL Monocytes # (0-1.0) k/uL Eosinophils # (0-0.7) k/uL Basophils # (0-0.2) k/uL PT (9.0-12.0) sec INR (<1.2) APTT (22.0-30.0) sec Sodium 134 L (137-145) mmol/L Potassium 4.3 (3.5-5.1) mmol/L Chloride 99 (98-107) mmol/L Carbon Dioxide 28 (22-30) mmol/L Anion Gap 7 mmol/L BUN 13 (7-17) mg/dL Creatinine 0.56 (0.52-1.04) mg/dL Est GFR (CKD-EPI)AfAm >90 (>60 ml/min/1.73 sqM) Est GFR (CKD-EPI)NonAf 85 (>60 ml/min/1.73 sqM) Glucose 127 H (74-99) mg/dL Plasma Lactic Acid Severiano 0.9 (0.7-2.0) mmol/L Calcium 9.3 (8.4-10.2) mg/dL Magnesium 2.2 (1.6-2.3) mg/dL Total Bilirubin 0.5 (0.2-1.3) mg/dL AST 34 (14-36) U/L ALT 28 (4-34) U/L Alkaline Phosphatase 118 (38-126) U/L Troponin I 0.025 (0.000-0.034) ng/mL Total Protein 7.5 (6.3-8.2) g/dL Albumin 4.7 (3.5-5.0) g/dL Urine Color Urine Appearance (Clear) Urine pH (5.0-8.0) Ur Specific [place] (1.001-1.035) Urine Protein (Negative) Urine Glucose (UA) (Negative) Urine Ketones (Negative) Urine Blood (Negative) Urine Nitrite (Negative) Urine Bilirubin (Negative) Urine Urobilinogen (<2.0) mg/dL Ur Leukocyte Esterase (Negative) Influenza Type A (PCR) (Not Detectd) Influenza Type B (PCR) (Not Detectd) RSV (PCR) (Not Detectd) SARS-CoV-2 (PCR) (Not Detectd) 08/28/22 Range/Units 01:00 WBC (3.8-10.6) k/uL RBC (3.80-5.40) m/uL Hgb (11.4-16.0) gm/dL Hct (34.0-46.0) % MCV (80.0-100.0) fL MCH (25.0-35.0) pg MCHC (31.0-37.0) g/dL RDW (11.5-15.5) % Plt Count (150-450) k/uL MPV Neutrophils % % Lymphocytes % % Monocytes % % Eosinophils % % Basophils % % Neutrophils # (1.3-7.7) k/uL Lymphocytes # (1.0-4.8) k/uL Monocytes # (0-1.0) k/uL Eosinophils # (0-0.7) k/uL Basophils # (0-0.2) k/uL PT (9.0-12.0) sec INR (<1.2) APTT (22.0-30.0) sec Sodium (137-145) mmol/L Potassium (3.5-5.1) mmol/L Chloride (98-107) mmol/L Carbon Dioxide (22-30) mmol/L Anion Gap mmol/L BUN (7-17) mg/dL Creatinine (0.52-1.04) mg/dL Est GFR (CKD-EPI)AfAm (>60 ml/min/1.73 sqM) Est GFR (CKD-EPI)NonAf (>60 ml/min/1.73 sqM) Glucose (74-99) mg/dL Plasma Lactic Acid Severiano (0.7-2.0) mmol/L Calcium (8.4-10.2) mg/dL Magnesium (1.6-2.3) mg/dL Total Bilirubin (0.2-1.3) mg/dL AST (14-36) U/L ALT (4-34) U/L Alkaline Phosphatase (38-126) U/L Troponin I (0.000-0.034) ng/mL Total Protein (6.3-8.2) g/dL Albumin (3.5-5.0) g/dL Urine Color Urine Appearance (Clear) Urine pH (5.0-8.0) Ur Specific [place] (1.001-1.035) Urine Protein (Negative) Urine Glucose (UA) (Negative) Urine Ketones (Negative) Urine Blood (Negative) Urine Nitrite (Negative) Urine Bilirubin (Negative) Urine Urobilinogen (<2.0) mg/dL Ur Leukocyte Esterase (Negative) Influenza Type A (PCR) Not Detected (Not Detectd) Influenza Type B (PCR) Not Detected (Not Detectd) RSV (PCR) Not Detected (Not Detectd) SARS-CoV-2 (PCR) Not Detected (Not Detectd) - EKG Data -: EKG Interpreted by Me EKG Comments: 12-lead Electrocardiogram Interpretation Note EKG was reviewed and interpreted by myself. 12-lead ECG performed at 0031 is interpreted by me as revealing normal sinus rhythm with first-degree AV block. At a rate of 85 beats per minute. Solomon is normal. CT interval is 214 ms, QRS duration is 89 ms, QTc is 359 ms.. There were no acute ST or T wave abnormalities to suggest myocardial ischemia or injury. R wave progression across the precordium was satisfactory. By my interpretation this EKG is non-diagnostic for acute ischemia. When compared with EKG from August 2020, no significant change. 12-lead Electrocardiogram Interpretation Note EKG was reviewed and interpreted by myself. 12-lead ECG performed at 0153 is interpreted by me as revealing normal sinus rhythm with first-degree AV block at a rate of 85 beats per minute. Solomon is normal. CT interval is 214 ms, QRS duration is 89 ms, QTc is 359 ms.. There were no acute ST or T wave abnormalities to suggest myocardial ischemia or injury. R wave progression across the precordium was satisfactory. By my interpretation this EKG is non-diagnostic for acute ischemia. When compared with EKG from earlier this evening, no significant change. Critical Care Time Critical Care Time: Yes Total Critical Care Time: 35 Critical Care Time: Upon my evaluation, this patient had a high probability of imminent or life- threatening deterioration due to severe anxiety, hypertension, chest pain, which required my direct attention, intervention, and personal management. I have personally provided 35 minutes of critical care time exclusive of time spent on separately billable procedures. Time includes review of laboratory data, radiology results, discussion with consultants, and monitoring for potential decompensation. Interventions were performed as documented in my note. Disposition Clinical Impression: Anxiety, Hypertension, Chest pain, Debility, Headache Disposition: ADMITTED IP TO THIS HOSP Condition: Stable Referrals: Sandro Rosen MD [Primary Care Provider] - 1-2 days Time of Disposition: 02:25
[2022-08-28] MEDS: ACETAMINOPHEN TAB 500 MG TAB PO PRN ×3 (03:25→20:24)
[2022-08-28] MEDS: ALPRAZolam 0.25 MG TAB PO SCH ×2 (08:31→17:09)
[2022-08-28] MEDS: AMIODARONE 200 MG TAB PO SCH (08:32)
[2022-08-28] MEDS: APIXABAN 2.5 MG TABLET PO SCH ×2 (08:32→20:24)
[2022-08-28] MEDS: FUROSEMIDE 20 MG TAB PO SCH (08:33)
[2022-08-28] MEDS: POTASSIUM CHLORIDE ER 10 MEQ TAB.ER.PRT PO SCH (08:33)
[2022-08-28] MEDS ORDERED: PANTOPRAZOLE 40 MG TABLET PO SCH (09:00)
[2022-08-28] MEDS ORDERED: ARTIFICIAL TEARS-HYPROMELLOSE DROPS 15 ML BTL BOTH EYES PRN (09:00)
[2022-08-28] MEDS ORDERED: METOPROLOL TARTRATE 12.5 MG TAB PO PRN (09:55)
[2022-08-28] MEDS ORDERED: METOPROLOL TARTRATE 12.5 MG TAB PO SCH (10:00)
[2022-08-28] MEDS ORDERED: ASPIRIN 81 MG PO SCH (10:00)
[2022-08-28] MEDS: cloNIDine 0.1 MG/24HR PATCH TRANSDERM SCH (10:25)
[2022-08-28] MEDS: LOSARTAN 25 MG TAB PO SCH (12:03)
[2022-08-28] MEDS: carvediloL 6.25 MG TAB PO SCH ×2 (12:04→17:10)
--- NOTE | 2022-08-28 12:17 | P.PN ---
Progress Note - Text Progress Note Date: 08/28/22 Hospitalist Interval Note Patient seen and examined at bedside. Vital signs reviewed General: Anxious-appearing female, no distress, appears at stated age, normal weight Derm: no unusual rashes/lesions, warm Head: atraumatic, normocephalic, symmetric Eyes: EOMI, no lid lag, anicteric sclera, pupils equal round reactive to light ENT: Nose and ears atraumatic Neck: No cervical lymphadenopathy, trachea midline, supple Mouth: no lip lesion, mucus membranes moist Cardiovascular: S1S2 reg, no murmur, positive dorsalis pedis pulse bilateral, no edema Lungs: CTA bilateral, no rhonchi, no rales, no accessory muscle use Abdominal: soft, nontender to palpation, no guarding Ext: muscle strength 5 out of 5 in all 4 extremities grossly, no gross muscle atrophy, no contractures, Neuro: CN II-XI grossly intact, no gross focal neuro deficits Psych: Alert, oriented, anxious affect Assessment/Plan: Acute chest pain Hypertensive emergency/urgency Elevated troponin Acute anxiety - On telemetry -Troponin uptrending - Patient ALLERGIC to aspirin and statin - Cardiology following - Cardiology added Coreg, losartan for hypertension This is an update note for patient. There is no charge associated with this note.
--- NOTE | 2022-08-28 13:45 | P.CRDCN ---
History of Present Illness Consult date: 08/28/22 Consult reason: chest pain History of present illness: HISTORY OF PRESENTING ILLNESS This is an 87-year-old female past medical history significant for hypertension, dyslipidemia, valvular heart disease and fibromyalgia. She follows in the office with Dr. Antonio. We have been asked to see in consultation for chest pain. Patient states that she came in the hospital because her"blood pressure is crazy." Patient complains of blood pressure being out of control with headache weakness and shakiness. She denies any chest pain but states she's had some pain in her left breast. She thinks her symptoms are due to anxiety. She also states that she lost her balance and fell on Wednesday hurting her left shoulder. She was seen at her PCPs office on Wednesday and shots were given into her shoulder which helped with the pain. Patient states that she has been taking all of her medications as directed. Patient was last seen in the office on 06/12 and recommendations were to stop metoprolol with tapering dose and a Lexiscan Cardiolite stress test which has been scheduled for Wednesday. She was also advised to change dosing of the clonidine patch to every 6 days instead of every 7. Patient presented with a blood pressure of 217/128. She received 2 doses of IV hydralazine and IV fluids and Ativan in the emergency center. Patient is seen today in the emergency center waiting for about on the cardiac stepdown unit. Blood pressure this morning 176/92 DIAGNOSTICS EKG reveals sinus rhythm 2. Chest xray no acute findings CTA of the head and neck revealed a 4.1 cm ascending aortic aneurysm without dissection CAT scan of the brain was negative for new findings Laboratory reviewed, CBC unremarkable, sodium 135, potassium 3.8, creatinine 0.67, magnesium 2.0, cardiac enzymes negative 1, NT proBNP 2320. Electrocardioversion for atrial fibrillation 08/26/2020 Cardiac catheterization 1999 revealed normal coronary arteries and normal left ventricular systolic function Holter monitor 05/30 revealed sinus mechanism with occasional PACs, atrial couplets and triplets and atrial quadruplets. No sustained atrial fibrillation Echocardiogram 05/2022 revealed normal LV function, mild concentric hypertrophy, mild aortic regurgitation, 3-4+ mitral regurgitation, moderate tricuspid regurgitation Current cardiac medications include amiodarone 100 mg daily, eliquis 2.5 mg twice daily, clonidine 0.1 mg patch every 6 days, Lasix 20 mg daily, Lopressor 12.5 mg daily as needed on tapering dose. REVIEW OF SYSTEMS At the time of my exam: CONSTITUTIONAL: Denies fever or chills. CARDIOVASCULAR: Denies chest pain, shortness of breath, orthopnea, PND or palpitations. RESPIRATORY: Denies cough. GASTROINTESTINAL: Denies abdominal pain, diarrhea, constipation, nausea or vomiting. MUSCULOSKELETAL: Denies myalgias. NEUROLOGIC: Denies numbness, tingling or weakness. ENDOCRINE: Denies fatigue, weight change, polydipsia or polyurina. GENITOURINARY: Denies burning, hematuria or urgency with micturation. HEMATOLOGIC: Denies history of anemia or bleeding. PHYSICAL EXAMINATION CONSTITUTIONAL: No apparent distress. HEENT: Head is normocephalic. Pupils are equal, round. Sclerae anicteric. Mucous membranes of the mouth are moist. No JVD. CHEST EXAMINATION: Lungs are clear to auscultation. No chest wall tenderness is noted on palpation or with deep breathing. HEART EXAMINATION: regular rate and rhythm. S1, S2 heard. Systolic ejection murmur at the apex, no gallops or rub. ABDOMEN: Soft, nontender. Positive bowel sounds. EXTREMITIES: 2+ peripheral pulses, no lower extremity edema and no calf tenderness. NEUROLOGIC EXAMINATION: Patient is awake, alert and oriented x3. ASSESSMENT Hypertensive emergency rule out secondary cause of hypertension Persistent atrial fibrillation status post ablation 08/2020 Hypertension Dyslipidemia Valvular heart disease, mitral regurgitation and tricuspid regurgitation Pulmonary hypertension PLAN Discontinue Lopressor and start patient on Coreg 6.25 mg twice daily and start patient on losartan 25 mg daily Continue amiodarone 100 mg daily, eliquis, Lasix Obtain CT angiogram of the abdomen and pelvis to rule out renal artery stenosis Obtain 2-D echocardiogram Further recommendations to follow based on clinical course. Thank you kindly for this consultation. Nurse Practitioner note has been reviewed, I agree with a documented findings and plan of care. Patient was seen and examined. Past Medical History Past Medical History: Atrial Fibrillation, Cancer, Heart Failure, Fibromyalgia, GERD/Reflux, Hypertension, Memory Impairment, Osteoarthritis (OA) Additional Past Medical History / Comment(s): Vertigo, Sjogren's Syndrome, leaky valve, IBS, Trigeminal neuralgia, difficulty swallowing large pills. Bleeds easily. Hx Skin cancer on nose. 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 Restless Leg Syndrome. Pain in right leg and hip (Bone on Bone in right hip). History of Any Multi-Drug Resistant Organisms: None Reported Past Surgical History: Ablation, Breast Surgery, Cholecystectomy, Hysterectomy, Orthopedic Surgery, Tonsillectomy Additional Past Surgical History / Comment(s): Bilateral knee arthroscopies, right rotator cuff repair, bilateral cataracts removed, right wrist cyst removed, 2 right breast biopies, 1 left breast biopsy. Past Anesthesia/Blood Transfusion Reactions: Motion Sickness Additional Past Anesthesia/Blood Transfusion Reaction / Comment(s): "A little goes a long way." Claustrophobia. Past Psychological History: Anxiety Smoking Status: Never smoker Past Alcohol Use History: None Reported Past Drug Use History: None Reported - Past Family History Mother Family Medical History: CVA/TIA Father Family Medical History: Congestive Heart Failure (CHF), Dementia Sister(s) Family Medical History: Cancer Additional Family Medical History / Comment(s): Colon cancer, precancerous breast cancer. Brother(s) Family Medical History: Cancer Additional Family Medical History / Comment(s): Lung cancer. Medications and Allergies Home Medications Medication Instructions Recorded Confirmed Type ALPRAZolam [Xanax] 0.125 mg PO TID 11/10/15 08/28/22 History Dicyclomine HCl 10 mg PO BID PRN 11/10/15 08/28/22 History Omeprazole 40 mg PO AC-BRKFST 11/10/15 08/28/22 History Vit C/E/Zn/Coppr/Lutein/Zeaxan 1 cap PO BID 11/10/15 08/28/22 History [Preservision Areds 2 Softgel] L.acidoph,Paracasei, B.lactis 1 cap PO BID 12/05/15 08/28/22 History [Probiotic] Calcium Citrate 250 mg PO BID 06/02/20 08/28/22 History Calm Magnesium Carbonate 41mg 0.25 tsp PO BID 06/02/20 08/28/22 History Powder Jennifer Supplement 150mg(10mg 1 tab PO BID 06/02/20 08/28/22 History Niacinamide W/10mg Inositol) Meclizine [Antivert] 12.5 mg PO DAILY PRN 06/02/20 08/28/22 History Turmeric/Turmeric Root Extract 1 cap PO DAILY 06/02/20 08/28/22 History [Turmeric 450-50 mg Capsule] Vitamin B Complex 1 cap PO DAILY 06/02/20 08/28/22 History cloNIDine 0.1 MG/24HR PATCH 1 patch TRANSDERM Q6D 06/02/20 08/28/22 History [Catapres-TTS] cycloSPORINE 0.05% OPHTH SOLN 1 drop BOTH EYES BID 06/02/20 08/28/22 History [Restasis] Furosemide [Lasix] 20 mg PO DAILY #20 tab 06/04/20 08/28/22 Rx Potassium Chloride [Potassium 10 meq PO DAILY #30 capsule.er 06/04/20 08/28/22 Rx Chloride ER] Arnica Cream 1 applic TOPICAL HS PRN 06/26/20 08/28/22 History Amiodarone HCl [Pacerone] 100 mg PO DAILY 08/20/20 08/28/22 History Acetaminophen Tab [Tylenol] 325 mg PO Q4H PRN 08/28/22 08/28/22 History Apixaban [Eliquis] 2.5 mg PO BID 08/28/22 08/28/22 History Cholecalciferol [Vitamin D3 (125 125 mcg PO DAILY 08/28/22 08/28/22 History Mcg = 5000 Iu)] Diclofenac Sodium Gel [Voltaren 2 gm TOPICAL QID PRN 08/28/22 08/28/22 History Gel] Metoprolol Tartrate [Lopressor] 12.5 mg PO DAILY PRN 08/28/22 08/28/22 History Allergies Allergy/AdvReac Type Severity Reaction Status Date / Time amlodipine besylate Allergy Unknown Verified 08/28/22 08:31 [From Norvasc] atorvastatin calcium Allergy Unknown Verified 08/28/22 08:31 [From Lipitor] citalopram hydrobromide Allergy Unknown Verified 08/28/22 08:31 [From Celexa] clonazepam [From Klonopin] Allergy Unknown Verified 08/28/22 08:31 lisinopril [From Prinivil] Allergy Unknown Verified 08/28/22 08:31 moxifloxacin HCl Allergy Unknown Verified 08/28/22 08:31 [From Avelox] nitrofurantoin Allergy Unknown Verified 08/28/22 08:31 Penicillins Allergy Unknown Verified 08/28/22 08:31 simvastatin Allergy Unknown Verified 08/28/22 08:31 Sulfa (Sulfonamide Allergy Unknown Verified 08/28/22 08:31 Antibiotics) Tetracyclines Allergy Unknown Verified 08/28/22 08:31 aspirin AdvReac Unknown Verified 08/28/22 08:31 muscle relaxors Allergy Unknown Uncoded 08/27/22 23:56 bandaids AdvReac Skin Uncoded 08/27/22 23:56 isssues Physical Exam Vitals: Vital Signs Temp Pulse Resp BP Pulse Ox 08/28/22 05:00 63 16 127/69 95 08/28/22 03:00 91 13 171/98 94 L 08/28/22 02:30 90 15 176/104 95 08/28/22 02:15 93 18 179/96 97 08/28/22 02:00 86 14 185/104 97 08/28/22 01:45 81 20 190/111 98 08/28/22 01:15 80 18 185/102 96 08/28/22 00:45 76 18 217/128 97 08/27/22 23:56 97.1 F L 75 18 212/117 98 Intake and Output 08/27/22 08/28/22 08/28/22 22:59 06:59 14:59 Other: Weight 58.967 kg Results 08/28/22 01:00 08/28/22 01:00 Cardiac Enzymes 08/28/22 08/28/22 08/28/22 Range/Units 01:00 01:00 03:34 AST 34 (14-36) U/L Troponin I 0.025 0.047 H* (0.000-0.034) ng/mL Coagulation 08/28/22 Range/Units 01:00 PT 10.6 (9.0-12.0) sec APTT 27.4 (22.0-30.0) sec CBC 08/28/22 Range/Units 01:00 WBC 6.2 (3.8-10.6) k/uL RBC 4.17 (3.80-5.40) m/uL Hgb 12.5 (11.4-16.0) gm/dL Hct 36.6 (34.0-46.0) % Plt Count 193 (150-450) k/uL Comprehensive Metabolic Panel 08/28/22 Range/Units 01:00 Sodium 134 L (137-145) mmol/L Potassium 4.3 (3.5-5.1) mmol/L Chloride 99 (98-107) mmol/L Carbon Dioxide 28 (22-30) mmol/L BUN 13 (7-17) mg/dL Creatinine 0.56 (0.52-1.04) mg/dL Glucose 127 H (74-99) mg/dL Calcium 9.3 (8.4-10.2) mg/dL AST 34 (14-36) U/L ALT 28 (4-34) U/L Alkaline Phosphatase 118 (38-126) U/L Total Protein 7.5 (6.3-8.2) g/dL Albumin 4.7 (3.5-5.0) g/dL Current Medications Generic Name Dose Route Start Last Admin Trade Name Freq PRN Reason Stop Dose Admin Acetaminophen 500 mg 08/28/22 03:05 08/28/22 03:25 Acetaminophen Tab 500 Mg Tab PO 500 mg Q6HR PRN Administration Mild Pain or Fever > 100.5 Alprazolam 0.125 mg 08/28/22 09:00 Alprazolam 0.25 Mg Tab PO TID@0900,1700,0000 [facility] Amiodarone HCl 100 mg 08/28/22 09:00 Amiodarone 200 Mg Tab PO DAILY [facility] Apixaban 2.5 mg 08/28/22 09:00 Apixaban 2.5 Mg Tablet PO BID [facility] Protocol Artificial Tears 1 drops 08/28/22 09:00 Artificial Tears-Hypromellose Drops 15 Ml Btl BOTH EYES QID PRN Dry Eye(s) Furosemide 10 mg 08/28/22 09:00 Furosemide 20 Mg Tab PO DAILY [facility] Naloxone HCl 0.2 mg 08/28/22 02:49 Naloxone 0.4 Mg/Ml 1 Ml Vial IV Q2M PRN Opioid Reversal Pantoprazole Sodium 40 mg 08/28/22 09:00 Pantoprazole 40 Mg Tablet PO QAM [facility] Potassium Chloride 10 meq 08/28/22 09:00 Potassium Chloride Er 10 Meq Tab.Er.Prt PO DAILY [facility] Intake and Output 08/27/22 08/28/22 08/28/22 22:59 06:59 14:59 Other: Weight 58.967 kg 08/28/22 01:00 08/28/22 01:00
--- NOTE | 2022-08-28 14:06 | P.CN ---
Psychiatric Consult - . Consult date: 08/28/22 Consult:: 08/28/22 14:03 IDENTIFYING DATA: This patient is a , retired, 87 yo CF with a significant history of anxiety, atrial fibrillation, heart failure, fibromyalgia, IBS, hypertension, and arthritis who presnted to the emergency department with a chief complaint of nonspecific chest pain and elevated anxiety. HISTORY OF PRESENT ILLNESS: The patient presented to the hospital on 08/28/2022, brought into the emergency department by family for evaluation of chest pain and elevated anxiety. Upon initial evaluation, the patient was found to have a BP of 176/92 and serial troponins have been trending upwards (0.117 - H). Psychiatry has been consulted for evaluation of anxiety. Present next to the patient is her daughter Elsa. Patient is agreeable with having Elsa present for the psychiatric evaluation. Patient reports she woke up yesterday feeling very flushed, anxious, and fearful to get out of bed. Her family expressed concern and she was subsequently brought to the hospital. The patient denies ever experiencing an episode of this severity in the past. She reports she is feeling significantly better since being in the hospital but continues to experience significant anxiety. Patient and daughter both report that the patient has had a long history of anxiety and intermittent episodes of depression. They report that her anxiety has been worsening since the start of the Covid-19 pandemic lockdowns as she was no longer able to participate in her normal recreational activities in the community, including her group swim. The patient reports that that she has been having daily episodes of panic which she describes as SOB, palpitations, and excessive worry. She does report using coping skills such as deep breathing exercises and tapping. Along with episodes of anxiety, she describes poor sleep secondary to nocturnal eneuresis. She reports no issues regarding appetite, hygiene and grooming, or anhedonia. Patient reports feelings of loneliness and feelings of helplessness due to uncontrolled hip pain (patient and daughter report it is "bone on bone"). The patient is currently prescribed xanax for anxiety and has been on this medication for the past 2-3 years. At this time patient denies any suicidal or homical ideations, intention, and/or plan. She reports no paranoia or other delusions. She denies any episodes of cameron or hypomania. Patient does not endorse any significant history of trauma. She does express some memory difficulty but daughter states it is age-related. PAST PSYCHIATRIC HISTORY: Patient has a history of anxiety and depression. She has trialed ativan, xanax, valium, and celexa in the past. Patient denies any previous psychiatric hospitalizations. Patient denies any psychiatric outpatient follow-up. Patient denies any history of suicide attempts in the past. PAST MEDICAL HISTORY: Past Medical History: Atrial Fibrillation, Cancer, Heart Failure, Fibromyalgia, GERD/Reflux, Hypertension, Memory Impairment, Osteoarthritis (OA) Additional Past Medical History / Comment(s): Vertigo, Sjogren's Syndrome, leaky valve, IBS, Trigeminal neuralgia, difficulty swallowing large pills. Bleeds easily. Hx Skin cancer on nose. 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 Restless Leg Syndrome. Pain in right leg and hip (Bone on Bone in right hip). History of Any Multi-Drug Resistant Organisms: None Reported Past Surgical History: Ablation, Breast Surgery, Cholecystectomy, Hysterectomy, Orthopedic Surgery, Tonsillectomy Additional Past Surgical History / Comment(s): Bilateral knee arthroscopies, right rotator cuff repair, bilateral cataracts removed, right wrist cyst removed, 2 right breast biopies, 1 left breast biopsy. Past Anesthesia/Blood Transfusion Reactions: Motion Sickness Additional Past Anesthesia/Blood Transfusion Reaction / Comment(s): "A little goes a long way." Claustrophobia. Past Psychological History: Anxiety Smoking Status: Never smoker Past Alcohol Use History: None Reported Past Drug Use History: None Reported Vital Signs Temp 97.1 F L 08/27/22 23:56 Pulse 76 08/28/22 13:00 Resp 17 08/28/22 13:00 BP 150/90 08/28/22 13:00 Pulse Ox 97 08/28/22 13:00 FiO2 Intake & Output 08/27/22 08/28/22 08/28/22 18:59 06:59 18:59 Weight 58.967 kg Laboratory Results - Last 24 Hours 08/28/22 08/28/22 08/28/22 00:35 01:00 01:00 WBC 6.2 RBC 4.17 Hgb 12.5 Hct 36.6 MCV 87.7 MCH 29.9 MCHC 34.0 RDW 13.4 Plt Count 193 MPV 7.7 Neutrophils % 82 Lymphocytes % 11 Monocytes % 5 Eosinophils % 0 Basophils % 0 Neutrophils # 5.1 Lymphocytes # 0.7 L Monocytes # 0.3 Eosinophils # 0.0 Basophils # 0.0 PT 10.6 INR 1.0 APTT 27.4 Sodium Potassium Chloride Carbon Dioxide Anion Gap BUN Creatinine Est GFR (CKD-EPI)AfAm Est GFR (CKD-EPI)NonAf Glucose Plasma Lactic Acid Severiano Calcium Magnesium Total Bilirubin AST ALT Alkaline Phosphatase Troponin I Total Protein Albumin Urine Color Colorless Urine Appearance Clear Urine pH 7.5 Ur Specific Woody 1.004 Urine Protein Negative Urine Glucose (UA) Negative Urine Ketones Negative Urine Blood Negative Urine Nitrite Negative Urine Bilirubin Negative Urine Urobilinogen <2.0 Ur Leukocyte Esterase Negative Influenza Type A (PCR) Influenza Type B (PCR) RSV (PCR) SARS-CoV-2 (PCR) 08/28/22 08/28/22 08/28/22 01:00 01:00 01:00 WBC RBC Hgb Hct MCV MCH MCHC RDW Plt Count MPV Neutrophils % Lymphocytes % Monocytes % Eosinophils % Basophils % Neutrophils # Lymphocytes # Monocytes # Eosinophils # Basophils # PT INR APTT Sodium 134 L Potassium 4.3 Chloride 99 Carbon Dioxide 28 Anion Gap 7 BUN 13 Creatinine 0.56 Est GFR (CKD-EPI)AfAm >90 Est GFR (CKD-EPI)NonAf 85 Glucose 127 H Plasma Lactic Acid Severiano 0.9 Calcium 9.3 Magnesium 2.2 Total Bilirubin 0.5 AST 34 ALT 28 Alkaline Phosphatase 118 Troponin I 0.025 Total Protein 7.5 Albumin 4.7 Urine Color Urine Appearance Urine pH Ur Specific Woody Urine Protein Urine Glucose (UA) Urine Ketones Urine Blood Urine Nitrite Urine Bilirubin Urine Urobilinogen Ur Leukocyte Esterase Influenza Type A (PCR) Influenza Type B (PCR) RSV (PCR) SARS-CoV-2 (PCR) 08/28/22 08/28/22 08/28/22 01:00 03:34 06:46 WBC RBC Hgb Hct MCV MCH MCHC RDW Plt Count MPV Neutrophils % Lymphocytes % Monocytes % Eosinophils % Basophils % Neutrophils # Lymphocytes # Monocytes # Eosinophils # Basophils # PT INR APTT Sodium Potassium Chloride Carbon Dioxide Anion Gap BUN Creatinine Est GFR (CKD-EPI)AfAm Est GFR (CKD-EPI)NonAf Glucose Plasma Lactic Acid Severiano Calcium Magnesium Total Bilirubin AST ALT Alkaline Phosphatase Troponin I 0.047 H* 0.117 H* Total Protein Albumin Urine Color Urine Appearance Urine pH Ur Specific Woody Urine Protein Urine Glucose (UA) Urine Ketones Urine Blood Urine Nitrite Urine Bilirubin Urine Urobilinogen Ur Leukocyte Esterase Influenza Type A (PCR) Not Detected Influenza Type B (PCR) Not Detected RSV (PCR) Not Detected SARS-CoV-2 (PCR) Not Detected ALLERGIES: as per EMR. CHEMICAL DEPENDENCY HISTORY: No reported tobacco, alcohol, marijuana, or illicit drug use. FAMILY PSYCHIATRIC/SUBSTANCE USE HISTORY: Patient reportsher father had dementia. SOCIAL HISTORY: Patient was born and raised in [facility]. She is as of 2000 after being to her for 40+ years. They have 6 children together. She reports she is one of 11 siblings. She reports no trauma. She identifies as Yazdanism. 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 No reported legal history. MENTAL STATUS EXAM: General Appearance: Patient appears to be stated age is alert, pleasant, and cooperative. Patient appears to have fair hygiene and grooming wearing hospital gown with fair eye contact. Requires hearing aids and is wearing glasses. Behavior: Patient is calmly lying in bed without any agitated behavior. Speech: Patient's speech is fluent and nonpressured. Spontaneous with normal rate and volume. Mood/Affect: Patient reports their mood is "nervous", affect appears to be euthymic. Suicidality/Homicidality: Patient denies having any suicidal or homicidal ideation, intention, and/or plan. Perceptions: Patient denies any visual hallucinations and denies any auditory hallucinations Though content/process: There is no evidence of any delusional thought content and thought process is linear and goal-directed. Memory and concentration: AOX3, grossly intact for the purposes of this session. Can spell "WORLD" backwards Judgment and insight: Fair IMPRESSIONS: Acute Chest Pain Hypertensive emergency/urgency Elevated Troponin Panic Disorder without agoraphobia PLAN: -Continue your medical management -At this time patient DOES NOT meet criteria for inpatient psychiatric admission. Patient presents with no imminent risk of harm to self or others. Protective factors include family support, yarsanism beliefs against suicide, and duty to family. -Delirium precautions recommended with patient including - avoiding use of narcotics and [employer] sedatives, limit anticholinergic medications when possible, frequent re-orientation, minimize use of restraints, open window shades during the day and close them at night -Would recommend the following medication changes/additions: As per [facility], patient is chronically prescribed xanax. Continue xanax 0.125 mg TID for anxiety Start Gabapentin 100 mg BID for neuropathic pain and off-label use for anxiety. -Risks, benefits, and treatment alternatives were discussed with family and patient. They are agreeable to trying medication at this time. -Psychiatry will continue to follow. 08/28/22 14:04
[2022-08-28] MEDS: GABAPENTIN 100 MG CAP PO SCH (20:24)
[2022-08-29] MEDS: ALPRAZolam 0.25 MG TAB PO SCH ×4 (00:39→23:48)
[2022-08-29] MEDS: cycloSPORINE 0.05% OPHTH 0.4 ML DROPERETTE BOTH EYES SCH ×3 (00:40→20:28)
--- NOTE | 2022-08-29 06:52 | P.PN ---
Subjective Progress Note Date: 08/29/22 Principal diagnosis: Hypertension emergency This is an 87-year-old female past medical history significant for hypertension, dyslipidemia, valvular heart disease and fibromyalgia. She follows in the office with Dr. Antonio. We have been asked to see in consultation for chest pain. Patient states that she came in the hospital because her"blood pressure is crazy." Patient complains of blood pressure being out of control with headache weakness and shakiness. She denies any chest pain but states she's had some pain in her left breast. She thinks her symptoms are due to anxiety. She also states that she lost her balance and fell on Wednesday hurting her left shoulder. She was seen at her PCPs office on Wednesday and shots were given into her shoulder which helped with the pain. Patient states that she has been taking all of her medications as directed. Patient was last seen in the office on 06/12 and recommendations were to stop metoprolol with tapering dose and a Lexiscan Cardiolite stress test which has been scheduled for Wednesday. She was also advised to change dosing of the clonidine patch to every 6 days instead of every 7. Patient presented with a blood pressure of 217/128. She received 2 doses of IV hydralazine and IV fluids and Ativan in the emergency center. Patient is seen today in the emergency center waiting for about on the cardiac stepdown un it. Blood pressure this morning 176/92 DIAGNOSTICS EKG reveals sinus rhythm 2. Chest xray no acute findings CTA of the head and neck revealed a 4.1 cm ascending aortic aneurysm without dissection CAT scan of the brain was negative for new findings Laboratory reviewed, CBC unremarkable, sodium 135, potassium 3.8, creatinine 0.67, magnesium 2.0, cardiac enzymes negative 1, NT proBNP 2320. Electrocardioversion for atrial fibrillation 08/26/2020 Cardiac catheterization 1999 revealed normal coronary arteries and normal left ventricular systolic function Holter monitor 05/30 revealed sinus mechanism with occasional PACs, atrial couplets and triplets and atrial quadruplets. No sustained atrial fibrillation Echocardiogram 05/2022 revealed normal LV function, mild concentric hypertrophy, mild aortic regurgitation, 3-4+ mitral regurgitation, moderate tricuspid regurgitation Current cardiac medications include amiodarone 100 mg daily, eliquis 2.5 mg twice daily, clonidine 0.1 mg patch every 6 days, Lasix 20 mg daily, Lopressor 12.5 mg daily as needed on tapering dose. August 292022 The patient was seen and evaluated this morning. She is asymptomatic. The pressure has been somewhat better but still consistent with stage II hypertension. She reports no pain in the chest and no shortness of breath. Echo still pending. CTA still pending. Blood work from the morning still pend ing as well. On examination she has been regular rhythm with a systolic murmur and clear breathing sounds bilaterally and no lower extremities edema noted ASSESSMENT Hypertensive emergency Persistent atrial fibrillation status post ablation 08/2020 Hypertension Dyslipidemia Valvular heart disease, mitral regurgitation and tricuspid regurgitation Pulmonary hypertension PLAN Follow up on the echocardiogram Follow-up on the computed tomography scan of the abdomen and pelvis to rule out renal artery stenosis/pheochromocytoma Continue the rest of the current medical regimen Monitor the patient for additional 24 hours Objective - Vital Signs Vital signs: Vital Signs Temp 97.5 F L 08/29/22 04:00 Pulse 62 08/29/22 04:00 Resp 15 08/29/22 04:00 BP 169/79 08/29/22 04:00 Pulse Ox 99 08/29/22 04:00 FiO2 Intake & Output 08/28/22 08/28/22 08/29/22 06:59 18:59 06:59 Intake Total 118 480 Output Total 450 Balance 118 30 Weight 58.967 kg 58.967 kg Intake: Oral 118 480 Output: Urine 450 Other: Voiding Method Diaper Diaper External Catheter External Catheter - Labs CBC & Chem 7: 08/28/22 01:00 08/28/22 01:00 Labs: Abnormal Lab Results - Last 24 Hours (Table) 08/28/22 Range/Units 06:46 Troponin I 0.117 H* (0.000-0.034) ng/mL
[2022-08-29 07:14] LABS: Basophils % (A) 0 %; Eosinophils % (A) 0 %; HCT 32.6 % (34.0-46.0); HGB 10.9 gm/dL (11.4-16.0); Lymphocytes # (A) 0.7 k/uL (1.0-4.8); Lymphocytes % (A) 15 %; MCH 29.3 pg (25.0-35.0); MCHC 33.4 g/dL (31.0-37.0); MCV 87.7 fL (80.0-100.0); Mean Platelet Volume 7.4; Monocytes # (A) 0.3 k/uL (0-1.0); Monocytes % (A) 6 %; Neutrophils # (A) 3.8 k/uL (1.3-7.7); Neutrophils % (A) 77 %; Platelet Count 164 k/uL (150-450); RBC 3.72 m/uL (3.80-5.40); RDW 13.4 % (11.5-15.5); WBC 4.9 k/uL (3.8-10.6)
[2022-08-29 07:33] LABS: African American GFR (CKD) >90 (>60 ml/min/1.73 sqM); Anion Gap 5 mmol/L; Blood Urea Nitrogen 12 mg/dL (7-17); Calcium 8.5 mg/dL (8.4-10.2); Carbon Dioxide 25 mmol/L (22-30); Chloride 101 mmol/L (98-107); Glucose 100 mg/dL (74-99); Non-African American GFR(CKD) 84 (>60 ml/min/1.73 sqM); Potassium 4.1 mmol/L (3.5-5.1); Sodium 131 mmol/L (137-145)
--- NOTE | 2022-08-29 08:37 | CT ---
CTA abdomen and pelvis. HISTORY: Uncontrolled hypertension, rule out renal artery stenosis. COMPARISON: None.. TECHNIQUE: Multiple axial images were obtained through the abdomen and pelvis before and after the un eventful administration of nonionic IV contrast material. Exam was performed according to the CTA pro tocol. Post processing was performed. Coronal and sagittal images were generated and reviewed. FINDINGS: Visualized lung bases are clear. On the precontrast images, there are no renal calcifications. There are surgical absence. There is mild to moderate scattered arteriosclerotic calcifications the abdominal aorta. On the post IV contrast images of the mesenteric and renal artery origins are well displayed and ther e is no significant stenosis. There is mild irregularity of the mid to distal left renal artery which could represent mild fibromus cular dysplasia or arteriosclerotic change but there is no significant stenosis. The caliber the abdo yamil aorta is normal is no evidence of aneurysm. There is no retroperitoneal adenopathy or hemorrhag e. There is a large 5.3 cm left renal cyst but there are no solid renal masses or hydronephrosis. There is no organomegaly of the liver, pancreas, spleen or adrenal glands. The bowel loops are normal in caliber is no evidence of dilation or obstruction. There is moderate to marked diverticulosis of the colon. There is no free intraperitoneal air or fluid. There is no pelvic mass or adenopathy. There are surgical absence of uterus. The osseous structures are intact. IMPRESSION: 1. No renal artery stenosis. Possible mild atherosclerosis or fibromuscular dysplasia of the the mid- distal left renal artery. 2. No solid renal mass or hydronephrosis. 3. Marked diverticulosis of the colon without acute inflammation or diverticulitis. 4. Surgical absence of the uterus and gallbladder.
[2022-08-29] MEDS: GABAPENTIN 100 MG CAP PO SCH ×2 (08:41→20:27)
[2022-08-29] MEDS: LOSARTAN 25 MG TAB PO SCH (08:41)
[2022-08-29] MEDS: APIXABAN 2.5 MG TABLET PO SCH ×2 (08:41→20:28)
[2022-08-29] MEDS: AMIODARONE 200 MG TAB PO SCH (08:41)
[2022-08-29] MEDS: CHOLECALCIFEROL 125 MCG (5000 IU) TABLET PO SCH (08:42)
[2022-08-29] MEDS: carvediloL 6.25 MG TAB PO SCH ×2 (08:42→16:19)
[2022-08-29] MEDS: POTASSIUM CHLORIDE ER 10 MEQ TAB.ER.PRT PO SCH (08:42)
[2022-08-29] MEDS: FUROSEMIDE 20 MG TAB PO SCH (08:42)
[2022-08-29] MEDS: OMEPRAZOLE 40 MG PO SCH (08:42)
[2022-08-29] MEDS: ACETAMINOPHEN TAB 500 MG TAB PO PRN ×2 (10:20→20:28)
--- NOTE | 2022-08-29 12:32 | P.PN ---
Subjective Progress Note Date: 08/29/22 Hospital Course: 87-year-old female with a PMH of chronic A. fib, Sjogren's syndrome, f ibromyalgia, IBS, trigeminal neuralgia, diastolic CHF, hypertension, restless leg syndrome, and anxiety presented with complaints of fatigue, diffuse chest discomfort as well as anxiety.EKG in the emergency room revealed sinus rhythm and first-degree AV block at 85 bpm with T-wave flattening in lead V2. CT angiogram of head and neck revealed a 4.1 cm aneurysm of the ascending aorta without dissection. CT brain revealed chronic small vessel disease. Chest x- ray was also unremarkable. Laboratory evaluation was remarkable for troponin 0.025. The patient's blood pressure was also elevated and was 179/92 at the time of evaluation. Cardiology consulted. Started on new antihypertensives. CT abdomen and pelvis - showed no renal artery stenosis, possible mild arthrosclerosis or fibromuscular dysplasia of the mid distal left renal artery. Echo pending. Subjective: Patient seen and examined at bedside. No acute events overnight. She continues to have chest discomfort, and claims that he feels like her anxiety which, worse after having breakfast. She denies any nausea, vomiting, palpitations, shortness of breath, abdominal pain, diarrhea, constipation, or urinary complaints. Pertinent positives and negatives as discussed above, a complete review of systems was performed and all other systems are negative. Vitals Signs Reviewed. General: Anxious-appearing female, no distress, appears at stated age, normal weight Derm: no unusual rashes/lesions, warm Head: atraumatic, normocephalic, symmetric Eyes: EOMI, no lid lag, anicteric sclera, pupils equal round reactive to light ENT: Nose and ears atraumatic Neck: No cervical lymphadenopathy, trachea midline, supple Mouth: no lip lesion, mucus membranes moist Cardiovascular: S1S2 reg, no murmur, positive dorsalis pedis pulse bilateral, no edema Lungs: CTA bilateral, no rhonchi, no rales, no accessory muscle use Abdominal: soft, nontender to palpation, no guarding Ext: muscle strength 5 out of 5 in all 4 extremities grossly, no gross muscle atrophy, no contractures, Neuro: CN II-XI grossly intact, no gross focal neuro deficits Psych: Alert, oriented, anxious affect Assessment and Plan: Acute chest pain, rule out ACS Hypertensive emergency/urgency Elevated troponin Acute anxiety - On telemetry - Patient ALLERGIC to aspirin and statin - Cardiology following - Cardiology added Coreg, losartan for hypertension -Continue on clonidine and Lasix -Echo pending -CT abdomen and pelvis - showed no renal artery stenosis, possible mild arthrosclerosis or fibromuscular dysplasia of the mid distal left renal artery Anxiety -Patient reports taking Xanax 3 times a day at home which did not alleviate her symptoms today -Psychiatry consult -Also added gabapentin Chronic conditions: A. fib, hypertension, diastolic CHF, restless leg syndrome, Sjogren's disease -Continue with home meds DVT ppx: Eliquis Code status: DNR/DNI Anticipated discharge place: Home Anticipated discharge time: 1-2 days Objective - Vital Signs Vital signs: Vital Signs Temp 97.8 F 08/29/22 11:42 Pulse 65 08/29/22 11:42 Resp 16 08/29/22 11:42 BP 175/93 08/29/22 11:42 Pulse Ox 100 08/29/22 11:42 FiO2 Intake & Output 08/28/22 08/29/22 08/29/22 18:59 06:59 18:59 Intake Total 118 480 118 Output Total 450 Balance 118 30 118 Weight 58.967 kg Intake: Oral 118 480 118 Output: Urine 450 Other: Voiding Method Diaper Diaper Diaper External Catheter External Catheter External Catheter # Voids 1 - Labs CBC & Chem 7: 08/29/22 06:32 08/29/22 06:32 Labs: Abnormal Lab Results - Last 24 Hours (Table) 08/29/22 08/29/22 Range/Units 06:32 06:32 RBC 3.72 L (3.80-5.40) m/uL Hgb 10.9 L (11.4-16.0) gm/dL Hct 32.6 L (34.0-46.0) % Lymphocytes # 0.7 L (1.0-4.8) k/uL Sodium 131 L (137-145) mmol/L Glucose 100 H (74-99) mg/dL
[2022-08-29] MEDS: SIMETHICONE 80 MG CHEWABLE PO PRN ×3 (12:51→21:21)
--- NOTE | 2022-08-29 14:48 | CT ---
EXAMINATION TYPE: CT brain wo con DATE OF EXAM: 08/29/2022 COMPARISON: 08/28/2022 HISTORY: f/u cva CT DLP: 1100.4 mGycm Automated exposure control for dose reduction was used. Images of the brain obtained without contrast. There is mild hypodensity in the periventricular white matter. There is no mass effect or midline gianluca ft. No sign of intracranial hemorrhage. There is mild cerebral cortical atrophy. The calvarium is int act. IMPRESSION: Mild atrophy and chronic small vessel ischemia. No definite acute intracranial abnormality. No change compared to yesterday.
--- NOTE | 2022-08-29 15:04 | P.PN ---
Progress Note - Text Progress Note Date: 08/29/22 Psychiatry Follow-up Note: Interval History: Patient was found asleep in her bed with nurse nearby. On awakening patient from sleep, she was oriented to person, place, time and situation, however she appeared to have word finding difficulties, slurred speech, facial asymmetry (facial drooping including left eyelid, left cheek and left side of mouth), and complained of numbness in left arm. She is able to follow commands. She does have a history of trigeminal neuralgia, however she is also at high risk for stroke due to her hypertensive crisis. Nurse at bedside agreed this is not patient's baseline and CODE STROKE was immediately called. Stroke team arrived immediately to further evaluate patient and patient was taken for STAT head CT. Patient's blood pressure at bedside was elevated at 198/107 (per nurse report). Patient's psychiatric assessment today was not able to completed in full due to her medical emergency, however patient was able to tell me that she is feeling anxious, tired and with poor sleep last night. She complains of restless legs and reports this makes her sleep difficult. She also complains of chronic pain due to her trigeminal neuralgia and hip. No SI/HI/AH/VH endorsed. She does admit to feeling sad however this could not be fully evaluated due to her medical emergency. Thought process is fragmented with word finding difficulties. Patient's son and [id number] arrived for a visit and were present when patient was taken for head CT. Mental status exam: General Appearance: Patient appears to be well-nourished elderly female with short hair and facial asymmetry that does not appear to be her baseline. Behavior: No agitated behavior. Patient is lying calmly in bed, attempts to cooperate however she is frustrated with having word finding difficulties, able to follow commands. Speech: Patient's speech is fragmented with word finding difficulties. Mood/Affect: Mood is anxious, admits to being sad, affect appears depressed and anxious with facial asymmetry as described above. Suicidality/Homicidality: Patient denies having any suicidal or homicidal ideation intent or plan. Perceptions: Patient denies any auditory or visual hallucinations. Though content/process: There is no evidence of any delusional thought content and thought process consists of word finding difficulties but is otherwise generally linear. Memory and concentration: AOX3, grossly intact for the purposes of this session Judgment and insight: fair IMPRESSIONS: Concern for stroke (Left sided facial dropping, word finding difficulties, slurred speech, numbess in left arm) Hypertensive emergency/urgency Elevated Troponin Panic Disorder without agoraphobia Unspecified depressive disorder PLAN: -CODE STROKE was called and patient was taken for head CT by stroke team -At this time patient DOES NOT meet criteria for inpatient psychiatric admission. Patient presents with no imminent risk of harm to self or others. Protective factors include family support, uatsdin beliefs against suicide, and duty to family. -Delirium precautions recommended with patient including - avoiding use of narcotics and [employer] sedatives, limit anticholinergic medications when possible, frequent re-orientation, minimize use of restraints, open window shades during the day and close them at night -Would recommend the following medication changes/additions: Will consider increasing Gabapentin to 300 mg daily in the morning and 600 mg daily after dinner for anxiety (off-label), pain, RLS and sleep; however will not make the change today due to patient's medical emergency and will re- evaluate patient again tomorrow once stroke work-up is complete. Will continue Gabapentin at 100 mg BID for now. Will consider starting Remeron 7.5 mg QHS for depression/sleep; however will not make the change today due to patient's medical emergency and will re-evaluate patient again tomorrow once stroke work-up is complete. Continue her home Xanax 0.125 mg TID for anxiety. Consider tapering and discontinuing this in the future as an outpatient due to the risk of falls with benzodiazepines in the elderly. -Psychiatry will continue to follow.
[2022-08-29] MEDS ORDERED: cloNIDine HCL 0.1 MG TAB PO STA (22:33)
[2022-08-30] MEDS: ACETAMINOPHEN TAB 500 MG TAB PO PRN ×4 (01:21→22:55)
[2022-08-30] MEDS: OMEPRAZOLE 40 MG PO SCH (06:20)
[2022-08-30] MEDS: carvediloL 6.25 MG TAB PO SCH ×2 (06:21→16:26)
--- NOTE | 2022-08-30 06:50 | P.PN ---
Subjective Progress Note Date: 08/30/22 Principal diagnosis: Hypertension emergency This is an 87-year-old female past medical history significant for hypertension, dyslipidemia, valvular heart disease and fibromyalgia. She follows in the office with Dr. Antonio. We have been asked to see in consultation for chest pain. Patient states that she came in the hospital because her"blood pressure is crazy." Patient complains of blood pressure being out of control with headache weakness and shakiness. She denies any chest pain but states she's had some pain in her left breast. She thinks her symptoms are due to anxiety. She also states that she lost her balance and fell on Wednesday hurting her left shoulder. She was seen at her PCPs office on Wednesday and shots were given into her shoulder which helped with the pain. Patient states that she has been taking all of her medications as directed. Patient was last seen in the office on 06/12 and recommendations were to stop metoprolol with tapering dose and a Lexiscan Cardiolite stress test which has been scheduled for Wednesday. She was also advised to change dosing of the clonidine patch to every 6 days instead of every 7. Patient presented with a blood pressure of 217/128. She received 2 doses of IV hydralazine and IV fluids and Ativan in the emergency center. Patient is seen today in the emergency center waiting for about on the cardiac stepdown un it. Blood pressure this morning 176/92 DIAGNOSTICS EKG reveals sinus rhythm 2. Chest xray no acute findings CTA of the head and neck revealed a 4.1 cm ascending aortic aneurysm without dissection CAT scan of the brain was negative for new findings Laboratory reviewed, CBC unremarkable, sodium 135, potassium 3.8, creatinine 0.67, magnesium 2.0, cardiac enzymes negative 1, NT proBNP 2320. Electrocardioversion for atrial fibrillation 08/26/2020 Cardiac catheterization 1999 revealed normal coronary arteries and normal left ventricular systolic function Holter monitor 05/30 revealed sinus mechanism with occasional PACs, atrial couplets and triplets and atrial quadruplets. No sustained atrial fibrillation Echocardiogram 05/2022 revealed normal LV function, mild concentric hypertrophy, mild aortic regurgitation, 3-4+ mitral regurgitation, moderate tricuspid regurgitation Current cardiac medications include amiodarone 100 mg daily, eliquis 2.5 mg twice daily, clonidine 0.1 mg patch every 6 days, Lasix 20 mg daily, Lopressor 12.5 mg daily as needed on tapering dose. August 292022 The patient was seen and evaluated this morning. She is asymptomatic. The pressure has been somewhat better but still consistent with stage II hypertension. She reports no pain in the chest and no shortness of breath. Echo still pending. CTA still pending. Blood work from the morning still pend ing as well. On examination she has been regular rhythm with a systolic murmur and clear breathing sounds bilaterally and no lower extremities edema noted 08/30/2022 The patient was seen and evaluated this morning. She denies any chest pain or chest discomfort or shortness of breath. Her main complaint has been headache/dizziness. The pressure remains elevated and consistent with stage II hypertension with numbers consistent with crisis every once a while. Currently she is on carvedilol and she is on losartan and she is on clonidine patches. I'm going to add hydrochlorothiazide to the current medical regimen. CTA of the abdomen and pelvis showed no evidence of renal artery stenosis. The echocardiogram still pending will follow-up with that. The physical examination is remarkable for regular rhythm with a systolic murmur was here that the right and left upper sternal border as well as in the apical area and clear breathing sounds bilaterally and no lower extremities edema noted. ASSESSMENT Hypertensive emergency the pressure is somewhat better but not ideal Persistent atrial fibrillation status post ablation 08/2020 Dyslipidemia Valvular heart disease, mitral regurgitation and tricuspid regurgitation Pulmonary hypertension PLAN Follow up on the echocardiogram The CTA as described above Add hydrochlorothiazide to the current medical regimen. DC Lasix Consider adding Aldactone Follow-up with the patient Objective - Vital Signs Vital signs: Vital Signs Temp 98.0 F 08/30/22 04:00 Pulse 72 08/30/22 04:00 Resp 15 08/30/22 04:00 BP 195/106 08/30/22 04:00 Pulse Ox 99 08/30/22 04:00 FiO2 Intake & Output 08/29/22 08/29/22 08/30/22 06:59 18:59 06:59 Intake Total 480 938 520 Output Total 450 Balance 30 938 520 Intake: IV 10 20 Invasive Line 1 10 20 Oral 480 928 500 Output: Urine 450 Other: Voiding Method Diaper Diaper Diaper External Catheter External Catheter External Catheter # Voids 1 2 # Bowel Movements 1 - Labs CBC & Chem 7: 08/29/22 06:32 08/29/22 06:32 Labs: Abnormal Lab Results - Last 24 Hours (Table) 08/29/22 08/29/22 Range/Units 06:32 06:32 RBC 3.72 L (3.80-5.40) m/uL Hgb 10.9 L (11.4-16.0) gm/dL Hct 32.6 L (34.0-46.0) % Lymphocytes # 0.7 L (1.0-4.8) k/uL Sodium 131 L (137-145) mmol/L Glucose 100 H (74-99) mg/dL
[2022-08-30] MEDS: AMIODARONE 200 MG TAB PO SCH (09:10)
[2022-08-30] MEDS: GABAPENTIN 100 MG CAP PO SCH (09:10)
[2022-08-30] MEDS: APIXABAN 2.5 MG TABLET PO SCH ×2 (09:10→20:04)
[2022-08-30] MEDS: hydroCHLOROthiazide 25 MG TAB PO SCH (09:10)
[2022-08-30] MEDS: POTASSIUM CHLORIDE ER 10 MEQ TAB.ER.PRT PO SCH (09:10)
[2022-08-30] MEDS: CHOLECALCIFEROL 125 MCG (5000 IU) TABLET PO SCH (09:11)
[2022-08-30] MEDS: cycloSPORINE 0.05% OPHTH 0.4 ML DROPERETTE BOTH EYES SCH ×2 (09:11→20:04)
[2022-08-30] MEDS: ALPRAZolam 0.25 MG TAB PO SCH ×3 (09:11→22:55)
[2022-08-30] MEDS: LOSARTAN 50 MG TAB PO SCH (09:11)
--- NOTE | 2022-08-30 10:15 | CA ---
Transthoracic Echo Report Name: Maxine Manriquez Age: 87 Gender: F : 1935 Exam Date: 08/29/2022 09:32 Exam Location: [facility] Ht (in): 63 Wt (lb): 130 Ordering Physician: Shazia Yeager Attending/Referring Phys: [id number], [employer] Analyst Ernestine Mariscal RDCS Procedure CPT: Indications: LVF Cardiac Hx: Technical Quality: Fair Contrast 1: Total Dose (mL): Contrast 2: Total Dose (mL): MEASUREMENTS (Male / Female) Normal Values 2D ECHO LV Diastolic Diameter PLAX 4.4 cm 4.2 - 5.9 / 3.9 - 5.3 cm LV Systolic Diameter PLAX 2.3 cm IVS Diastolic Thickness 1.5 cm 0.6 - 1.0 / 0.6 - 0.9 cm LVPW Diastolic Thickness 1.4 cm 0.6 - 1.0 / 0.6 - 0.9 cm LV Relative Wall Thickness 0.6 RV Internal Dim ED PLAX 3.3 cm LA Volume 87.3 cm??? 18 - 58 / 22 - 52 cm??? M-MODE Aortic Root Diameter MM 2.6 cm LA Systolic Diameter MM 4.3 cm LA Ao Ratio MM 1.6 AV Cusp Separation MM 1.3 cm DOPPLER AV Peak Velocity 193.7 cm/s AV Peak Gradient 15.0 mmHg AV Mean Velocity 140.1 cm/s AV Mean Gradient 8.7 mmHg AV Velocity Time Integral 40.7 cm AI Peak Velocity 377.0 cm/s AI Peak Gradient 56.9 mmHg AI Pressure Half Time 634.2 ms LVOT Peak Velocity 105.2 cm/s LVOT Peak Gradient 4.4 mmHg MV Area PHT 3.5 cm??? Mitral E Point Velocity 74.6 cm/s Mitral A Point Velocity 70.1 cm/s Mitral E to A Ratio 1.1 MV Deceleration Time 215.2 ms MV E' Velocity 5.3 cm/s Mitral E to MV E' Ratio 14.1 TR Peak Velocity 280.0 cm/s TR Peak Gradient 31.4 mmHg Right Ventricular Systolic Press 36.4 mmHg FINDINGS Left Ventricle Moderately increased septal wall thickness. Moderately increased posterior wall thickness. Left ventricular cavity size normal. Normal left ventricular systolic function with no obvious regional wall motion abnormalities. Left ventricular ejection fraction is estimated at 55-60 %. Right Ventricle Moderate right ventricular dilatation. Mild pulmonary hypertension. Right Atrium Mild right atrial dilatation. Left Atrium Severely increased left atrial volume. Mildly increased left atrial area. Mitral Valve Mitral valve thickened. Mild mitral annular calcification. Moderate mitral regurgitation. Aortic Valve Trileaflet aortic valve. Aortic valve sclerosis. Trace to mild aortic regurgitation. Tricuspid Valve Moderate tricuspid regurgitation. Pulmonic Valve Trace pulmonic regurgitation. Pericardium No pericardial effusion. Aorta Normal size aortic root and proximal ascending aorta. CONCLUSIONS Normal biventricular systolic function Mild aortic insufficiency Moderate mitral regurgitation Mild pulmonary hypertension Moderate tricuspid regurgitation Previewed by: Dr. Blas Moran MD (Electronically Signed) Final Date: 30 August 2022 10:14
--- NOTE | 2022-08-30 11:57 | P.PN ---
Subjective Progress Note Date: 08/30/22 Hospital Course: 87-year-old female with a PMH of chronic A. fib, Sjogren's syndrome, f ibromyalgia, IBS, trigeminal neuralgia, diastolic CHF, hypertension, restless leg syndrome, and anxiety presented with complaints of fatigue, diffuse chest discomfort as well as anxiety.EKG in the emergency room revealed sinus rhythm and first-degree AV block at 85 bpm with T-wave flattening in lead V2. CT angiogram of head and neck revealed a 4.1 cm aneurysm of the ascending aorta without dissection. CT brain revealed chronic small vessel disease. Chest x- ray was also unremarkable. Laboratory evaluation was remarkable for troponin 0.025. The patient's blood pressure was also elevated and was 179/92 at the time of evaluation. Cardiology consulted. Started on new antihypertensives. CT abdomen and pelvis - showed no renal artery stenosis, possible mild arthrosclerosis or fibromuscular dysplasia of the mid distal left renal artery. Echo showed normal biventricular systolic function, mild aortic regurgitation, moderate MR, mild pulmonary hypertension, moderate TR. On 08/29 patient had acute right-sided facial droop, code stroke was called. Head CT without contrast showed no acute changes. Patient does not have any other focal neurological deficits. Neurology consulted. Subjective: Patient seen and examined at bedside. Yesterday afternoon, patient had an acute right facial droop without any other focal neurological deficits. Code stroke was called. Right facial droop now improving. She denies any further chest pain or discomfort. Pertinent positives and negatives as discussed above, a complete review of systems was performed and all other systems are negative. Vitals Signs Reviewed. General: Anxious-appearing female, no distress, appears at stated age, normal weight Derm: no unusual rashes/lesions, warm Head: atraumatic, normocephalic, symmetric Eyes: EOMI, no lid lag, anicteric sclera, pupils equal round reactive to light ENT: Nose and ears atraumatic Neck: No cervical lymphadenopathy, trachea midline, supple Mouth: no lip lesion, mucus membranes moist Cardiovascular: S1S2 reg, no murmur, positive dorsalis pedis pulse bilateral, no edema Lungs: CTA bilateral, no rhonchi, no rales, no accessory muscle use Abdominal: soft, nontender to palpation, no guarding Ext: muscle strength 5 out of 5 in all 4 extremities grossly, no gross muscle atrophy, no contractures, Neuro: Slight right-sided facial droop noted, right ptosis Psych: Alert, oriented, anxious affect Assessment and Plan: Right-sided facial droop Strokelike symptoms -Head CT without contrast negative for any acute process -Neurology consulted for further workup -Patient and family are adamant about not starting antiplatelet therapy due to history of hemorrhage during surgery -Patient also had severe myalgias with 3 different statins, family to consider to ezitimibe Acute chest pain, - now resolved Hypertensive emergency/urgency Elevated troponin Acute anxiety - On telemetry - Cardiology following - Cardiology added Coreg, losartan, hydrochlorothiazide for hypertension -Continue on clonidine - Discontinued Lasix -Echo showed no systolic dysfunction -CT abdomen and pelvis - showed no renal artery stenosis, possible mild arthrosclerosis or fibromuscular dysplasia of the mid distal left renal artery Anxiety -Patient reports taking Xanax 3 times a day at home which did not alleviate her symptoms today -Psychiatry consult -Also added gabapentin Chronic conditions: A. fib, hypertension, diastolic CHF, restless leg syndrome, Sjogren's disease -Continue with home meds DVT ppx: Eliquis Code status: DNR/DNI Anticipated discharge place: Home Anticipated discharge time: 1-2 days Objective - Vital Signs Vital signs: Vital Signs Temp 97.8 F 08/30/22 09:02 Pulse 57 L 08/30/22 09:02 Resp 15 08/30/22 09:02 BP 169/87 08/30/22 09:02 Pulse Ox 99 08/30/22 09:02 FiO2 Intake & Output 08/29/22 08/30/22 08/30/22 18:59 06:59 18:59 Intake Total 938 520 800 Balance 938 520 800 Intake: IV 10 20 10 Invasive Line 1 10 20 10 Oral 928 500 790 Other: Voiding Method Diaper Diaper Diaper External Catheter External Catheter External Catheter # Voids 1 2 1 # Bowel Movements 1 - Labs CBC & Chem 7: 08/29/22 06:32 08/29/22 06:32
[2022-08-30] MEDS: CLOPIDOGREL 75 MG TAB PO SCH (13:22)
--- NOTE | 2022-08-30 13:39 | P.CNNES ---
History of Present Illness Consult date: 08/30/22 Requesting physician: Elmer Hess Reason for Consult: facial droop, code stroke 08/29/22 History of Present Illness: This is an 87-year-old woman with history of atrial fibrillation on eliquis, trigeminal neuralgia over the right side of the face, hypertension, heart failure, Sjogren syndrome who presented emergency department because of off uncontrolled hypertension chest pain abdominal pain. Neurology is consulted for the right facial weakness with a code stroke on 08/29/2022. According to the patient's nurse yesterday in the afternoon around 2 inch patient had NIH of a 2 and had of right facial droop and as a result a code stroke was activated. As a result the patient had a CT of the head is reported as mild atrophy and chronic small vessel ischemia. No definite acute intracranial bleed. No change c ompared to yesterday. Per the nurse the stroke attending stated no IV TPA since the patient is on Eliquis (2.5mg bid) and risk outweigh the benefit. Upon seeing the patient she was accompanied with her daughter and this seems that the facial weakness over the right side that is been improving compared to yesterday. Per per the daughter she is weaker on the left upper extremity. Patient denies of any numbness. She is having slurring of the speech which she's been having since yesterday. The daughters she's having worsening of the swallowing than her baseline. During this hospital visit she had a CT of the head and CTA of the head and neck ordered by ED physician because of headache hypertension and the patient is on blood thinners. And the CT of the head is reported as cerebral atrophy. No acute abnormality. There is some mild chronic small vessel ischemia. There is progression of white matter disease compared to old exam. CT angiography of the head and neck is reported as negative. 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 I personally reviewed the CT of the head that was performed yesterday and I did not appreciate any acute ischemia or bleed there is a questionable hypodensity over the left frontal region in the subcortical region but it was only seen on one cut so possibly artifact versus a stroke. Also I seen some hypodensity over the right subcortical frontal and that seems chronic. Some of the other workup during this hospital visit consisted of 2-D echo on 08/29/22 was reported as normal biventricular systolic function. Mild aortic insufficiency. Moderate mitral regurgitation. Moderate tricuspid regurgitation. I reviewed her chemistry panel and her sodium on initial position was 134 currently is 131. The serum glucose is 100. Calcium, magnesium, HDL 30 within normal limits. Review of Systems Review of system: The 12 point system was reviewed and apparent positive and n egative per HPI. Past Medical History Past Medical History: Atrial Fibrillation, Cancer, Heart Failure, Fibromyalgia, GERD/Reflux, Hypertension, Memory Impairment, Osteoarthritis (OA) Additional Past Medical History / Comment(s): Vertigo, Sjogren's Syndrome, leaky valve, IBS, Trigeminal neuralgia, difficulty swallowing large pills. Bleeds easily. Hx Skin cancer on nose. 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 Restless Leg Syndrome. Pain in right leg and hip (Bone on Bone in right hip). Claustrophobia History of Any Multi-Drug Resistant Organisms: None Reported Past Surgical History: Ablation, Breast Surgery, Cholecystectomy, Hysterectomy, Orthopedic Surgery, Tonsillectomy Additional Past Surgical History / Comment(s): Bilateral knee arthroscopies, right rotator cuff repair, bilateral cataracts removed, right wrist cyst removed, 2 right breast biopies, 1 left breast biopsy. Past Anesthesia/Blood Transfusion Reactions: Motion Sickness Additional Past Anesthesia/Blood Transfusion Reaction / Comment(s): "A little goes a long way." Past Psychological History: Anxiety Additional Psychological History / Comment(s): seasonal affective disorder. sits under a special lamp Smoking Status: Never smoker Past Alcohol Use History: None Reported Past Drug Use History: None Reported - Past Family History Mother Family Medical History: CVA/TIA Father Family Medical History: Congestive Heart Failure (CHF), Dementia Sister(s) Family Medical History: Cancer Additional Family Medical History / Comment(s): Colon cancer, precancerous breast cancer. Brother(s) Family Medical History: Cancer Additional Family Medical History / Comment(s): Lung cancer. Medications and Allergies Home Medications Medication Instructions Recorded Confirmed Type ALPRAZolam [Xanax] 0.125 mg PO TID 11/10/15 08/28/22 History Dicyclomine HCl 10 mg PO BID PRN 11/10/15 08/28/22 History Omeprazole 40 mg PO AC-BRKFST 11/10/15 08/28/22 History Vit C/E/Zn/Coppr/Lutein/Zeaxan 1 cap PO BID 11/10/15 08/28/22 History [Preservision Areds 2 Softgel] L.acidoph,Paracasei, B.lactis 1 cap PO BID 12/05/15 08/28/22 History [Probiotic] Calcium Citrate 250 mg PO BID 06/02/20 08/28/22 History Calm Magnesium Carbonate 41mg 0.25 tsp PO BID 06/02/20 08/28/22 History Powder Jennifer Supplement 150mg(10mg 1 tab PO BID 06/02/20 08/28/22 History Niacinamide W/10mg Inositol) Meclizine [Antivert] 12.5 mg PO DAILY PRN 06/02/20 08/28/22 History Turmeric/Turmeric Root Extract 1 cap PO DAILY 06/02/20 08/28/22 History [Turmeric 450-50 mg Capsule] Vitamin B Complex 1 cap PO DAILY 06/02/20 08/28/22 History cloNIDine 0.1 MG/24HR PATCH 1 patch TRANSDERM Q6D 06/02/20 08/28/22 History [Catapres-TTS] cycloSPORINE 0.05% OPHTH SOLN 1 drop BOTH EYES BID 06/02/20 08/28/22 History [Restasis] Furosemide [Lasix] 20 mg PO DAILY #20 tab 06/04/20 08/28/22 Rx Potassium Chloride [Potassium 10 meq PO DAILY #30 capsule.er 06/04/20 08/28/22 Rx Chloride ER] Arnica Cream 1 applic TOPICAL HS PRN 06/26/20 08/28/22 History Amiodarone HCl [Pacerone] 100 mg PO DAILY 08/20/20 08/28/22 History Acetaminophen Tab [Tylenol] 325 mg PO Q4H PRN 08/28/22 08/28/22 History Apixaban [Eliquis] 2.5 mg PO BID 08/28/22 08/28/22 History Cholecalciferol [Vitamin D3 (125 125 mcg PO DAILY 08/28/22 08/28/22 History Mcg = 5000 Iu)] Diclofenac Sodium Gel [Voltaren 2 gm TOPICAL QID PRN 08/28/22 08/28/22 History Gel] Metoprolol Tartrate [Lopressor] 12.5 mg PO DAILY PRN 08/28/22 08/28/22 History Allergies Allergy/AdvReac Type Severity Reaction Status Date / Time amlodipine besylate Allergy Unknown Verified 08/28/22 08:31 [From Norvasc] atorvastatin calcium Allergy Unknown Verified 08/28/22 08:31 [From Lipitor] citalopram hydrobromide Allergy Unknown Verified 08/28/22 08:31 [From Celexa] clonazepam [From Klonopin] Allergy Unknown Verified 08/28/22 08:31 lisinopril [From Prinivil] Allergy Unknown Verified 08/28/22 08:31 moxifloxacin HCl Allergy Unknown Verified 08/28/22 08:31 [From Avelox] nitrofurantoin Allergy Unknown Verified 08/28/22 08:31 Penicillins Allergy Unknown Verified 08/28/22 08:31 simvastatin Allergy Unknown Verified 08/28/22 08:31 Sulfa (Sulfonamide Allergy Unknown Verified 08/28/22 08:31 Antibiotics) Tetracyclines Allergy Unknown Verified 08/28/22 08:31 aspirin AdvReac Unknown Verified 08/28/22 08:31 muscle relaxors Allergy Unknown Uncoded 08/27/22 23:56 bandaids AdvReac Skin Uncoded 08/27/22 23:56 isssues Physical Examination - Vital Signs Vital Signs: Vital Signs Temp Pulse Resp BP Pulse Ox 08/30/22 12:06 97.8 F 60 15 174/86 97 08/30/22 09:02 97.8 F 57 L 15 169/87 99 08/30/22 04:00 98.0 F 72 15 195/106 99 08/30/22 00:00 97.9 F 64 18 166/80 97 08/29/22 21:27 194/102 08/29/22 20:00 98.3 F 67 16 186/90 96 08/29/22 17:18 70 16 161/87 100 08/29/22 16:13 98.0 F 72 16 182/101 98 08/29/22 14:50 97.4 F L 64 16 197/102 95 08/29/22 14:11 97.7 F 69 16 193/102 98 Intake and Output 08/29/22 08/30/22 08/30/22 22:59 06:59 14:59 Intake Total 580 510 800 Balance 580 510 800 Intake: IV 10 10 10 Invasive Line 1 10 10 10 Oral 570 500 790 Other: Voiding Method Diaper Diaper Diaper External Catheter External Catheter External Catheter # Voids 1 2 1 # Bowel Movements 1 GENERAL: The patient is lying in bed and is not in acute distress. CHEST: The heart rate is regular rate rhythm. No murmurs to auscultation. LUNG: Clear to auscultation bilaterally no wheezing noted throughout. Not labored breathing. ABDOMEN/GI: Bowel sounds present in all 4 quadrants. No tenderness to palpation throughout. NEUROLOGICAL: Higher mental function: The patient is awake, alert, oriented to self, place and time. Patient is following commands. No aphasia and no neglect. Cranial nerves: The pupils are round, equal and reactive to light and acco mmodation. Has mild ptosis of the right eye. Visual orozco are full to confrontation throughout. Extraocular movement is intact no nystagmus is noted. Facial sensation is normal to touch throughout. The facial strength is I felt there is subtle left nasolabial flattening when I was at her left side and had difficulty blowing air on left side but when I was on right side, I felt ?right nasolabial flattening. Hearing is moderate to severely decreased bilaterally to hand rub. Tongue is midline and moved [id number] without any difficulty. No dysarthria is noted. Shoulder shrug is normal bilaterally. Motor: The strength is left upper is 4+. Right upper is 5/5. Right lower is limited because of old right hip pain but briefly lifting above gravity. While left lower no difficulty lifting above gravity. Normal tone and bulk. Cerebellum: Normal finger to nose bilaterally. Sensation: Sensation is normal to touch throughout. Reflexes (right/left): Deferred since was in pain. Plantars are mute bilaterally. Results - Laboratory Findings CBC and BMP: 08/29/22 06:32 08/29/22 06:32 Abnormal Lab Findings: Abnormal Labs 08/28/22 08/28/22 08/28/22 01:00 01:00 03:34 RBC Hgb Hct Lymphocytes # 0.7 L Sodium 134 L Glucose 127 H Troponin I 0.047 H* 08/28/22 08/29/22 08/29/22 06:46 06:32 06:32 RBC 3.72 L Hgb 10.9 L Hct 32.6 L Lymphocytes # 0.7 L Sodium 131 L Glucose 100 H Troponin I 0.117 H* Assessment and Plan Assessment: Acute ischemic stroke (right facial droop, dysarthria and left upper extremity weakness. On examination I felt ? left nasolabial flattening and did not appear right at times. Initial NIH 4. No IV since on eliquis. Atrial fibrillation on eliquis status post ablation August 2020 Uncontrolled hypertension Heart failure Right trigemnial neuralgia Sjogren syndrome Restless leg syndrome Old Right hip and knee pain Plan: I ordered MRI of the brain, carotid duplex. Patient had CT angiography of the head and neck that is reported as negative on initial presentation but had strokelike symptoms a day after presentation. I started patient on Plavix 75mg and not aspirin since patient stated that the she had the side effects to aspirin in past (does not seem like side-effects. He is on Keeley was 2.5 mg 1 tablet twice a day. If patient has a large stroke I recommend to hold eliquis to avoid hemorrhagic conversion. Notified the primary team that the to obtain the MRI as soon as possible tomorrow. Ordered lipid panel Every 4 hours neuro checks On cardiac monitoring Consulted PT OT and M[employer]SEMBLER. Cardiology is on board We'll defer the rest of the medical management to primary team For DVT prophylaxis patient is on Eliquis. Plan discussed with the patient, her daughter was at bedside and primary team. Thank you for the consultation Spent total of 35 minutes with patient care, going over history/examination, reviewing labs/imaging and going over care with patient/family. Dr. Rodriguez will start neurology service tomorrow a.m. Time with Patient: Greater than 30
--- NOTE | 2022-08-30 14:28 | P.PN ---
Progress Note - Text Progress Note Date: 08/30/22 Psychiatry Follow-up Note: Interval History: Patient was found awake in her bed with daughter and nurse at bedside assisting patient to drink water as she coughs and water drips from right side of mouth. She continues to demonstrate RIGHT (correction to yesterday's note where it was incorrectly listed as left) side facial drooping. Her mood is "well, I was just told I had a stroke". She was seen by neurology and plan is to have an MRI. Her mood appears somewhat irritable and responses are somewhat terse. No SI/HI/AH/VH endorsed. She denies feeling anxious today and reports the anxiety comes and goes. She continues to complain of pain in her legs that is worse at night from restless legs and reports she needed Tylenol last night because the pain keeps her from falling asleep. Mental status exam: General Appearance: Patient appears to be well-nourished elderly female with short hair and facial asymmetry/drooping on RIGHT side. Behavior: No agitated behavior. Patient is sitting up in bed trying to drink water as she coughs and water drips from right side of mouth. Speech: Patient's speech is fragmented with word finding difficulties. Mood/Affect: Mood is irritable, affect appears depressed with facial asymmetry as described above. Suicidality/Homicidality: Patient denies having any suicidal or homicidal ideation intent or plan. Perceptions: Patient denies any auditory or visual hallucinations. Though content/process: There is no evidence of any delusional thought content and thought process consists of word finding difficulties but is otherwise generally linear. Memory and concentration: AOX3, grossly intact for the purposes of this session Judgment and insight: fair IMPRESSIONS: Concern for stroke (RIGHT sided facial dropping, word finding difficulties, slurred speech) Hypertensive emergency/urgency Elevated Troponin Panic Disorder without agoraphobia Unspecified depressive disorder PLAN: -Continue medical work-up as you are. -At this time patient DOES NOT meet criteria for inpatient psychiatric admission. Patient presents with no imminent risk of harm to self or others. Protective factors include family support, latter day beliefs against suicide, and duty to family. -Delirium precautions recommended with patient including - avoiding use of narcotics and V[employer] sedatives, limit anticholinergic medications when possible, frequent re-orientation, minimize use of restraints, open window shades during the day and close them at night -Would recommend the following medication changes/additions: I have discussed increasing the dose of Gabapentin with patient and her daughter to help improve her anxiety and RLS, and she agrees to increase to 100 mg daily and 300 mg QHS. Will not start antidepressant at this time due to increased risk of bleeding and ongoing stroke work-up. This may be considered on an outpatient basis once patient is medically stable. Continue her home Xanax 0.125 mg TID for anxiety. Consider tapering and discontinuing this in the future as an outpatient due to the risk of falls with benzodiazepines in the elderly. -Psychiatry will continue to follow.
--- NOTE | 2022-08-30 14:58 | US ---
EXAMINATION TYPE: US carotid duplex BILAT DATE OF EXAM: 08/30/2022 COMPARISON: NONE CLINICAL HISTORY: stroke. Stroke TECHNIQUE: Carotid duplex ultrasound examination. Indirect Doppler criteria was utilized. FINDINGS: EXAM MEASUREMENTS: RIGHT: Peak Systolic Velocity (PSV) cm/sec ----- Right CCA: 36.2 ----- Right ICA: 43.5 ----- Right ECA: 114.1 ICA/CCA ratio: 1.2 RIGHT: End Diastole cm/sec ----- Right CCA: 0 ----- Right ICA: 11.5 ----- Right ECA: 0 LEFT: Peak Systolic Velocity (PSV) cm/sec ----- Left CCA: 37.4 ----- Left ICA: 63.3 ----- Left ECA: 111.2 ICA/CCA ratio: 1.7 LEFT: End Diastole cm/sec ----- Left CCA: 5 ----- Left ICA: 16.7 ----- Left ECA: 0 VERTEBRALS (direction of flow): Right Vertebral: Antegrade Left Vertebral: Antegrade Rhythm: Normal ESCALATOR MECHANIC NOTES: No significant stenosis seen IMPRESSION: There is antegrade flow in the vertebral arteries. The images and measurements suggest less than 20% stenosis in both internal carotid arteries. Criteria for Assigning % of Stenosis / Diameter reduction (Estimation based on the indirect measurements of the internal carotid artery velocities (ICA PSV). 1. Normal (no stenosis)=ICA PSV < 125 cm/s: ratio < 2.0: ICA EDV<40 cm/s. 2. Less than 50% stenosis=ICA PSV < 125 cm/s: ratio < 2.0: ICA EDV<40 cm/s. 3. 50 to 69% stenosis=ICA PSV of 125 to 230 cm/s: ration 2.0 ? 4.0: ICA EDV 40-100 cm/s. 4. Greater than 70% stenosis to near occlusion= ICA PSV > 230 cm/s: ratio > 4.0: ICA EDV > 100 cm/s. 5. Near occlusion= ICA PSV velocities may be low or undetectable: variable ratio and ICA EDV. 6. Total occlusion=unable to detect flow.
[2022-08-30 17:58] LABS: Chol/HDL Ratio 2.46 Ratio; LDL Cholesterol,Calculated 81.9 mg/dL (0.0-131.0); VLDL Calculation 13.08 mg/dL (5.00-40.00)
[2022-08-30] MEDS: GABAPENTIN 300 MG CAP PO SCH (20:04)
[2022-08-31] MEDS: carvediloL 6.25 MG TAB PO SCH ×2 (06:02→16:41)
[2022-08-31] MEDS: OMEPRAZOLE 40 MG PO SCH (06:02)
[2022-08-31 08:46] LABS: African American GFR (CKD) >90 (>60 ml/min/1.73 sqM); Anion Gap 6 mmol/L; Blood Urea Nitrogen 10 mg/dL (7-17); Calcium 8.5 mg/dL (8.4-10.2); Carbon Dioxide 27 mmol/L (22-30); Chloride 94 mmol/L (98-107); Glucose 148 mg/dL (74-99); Magnesium 1.8 mg/dL (1.6-2.3); Non-African American GFR(CKD) 83 (>60 ml/min/1.73 sqM); Potassium 3.9 mmol/L (3.5-5.1); Sodium 127 mmol/L (137-145)
[2022-08-31] MEDS: APIXABAN 2.5 MG TABLET PO SCH ×2 (09:17→20:15)
[2022-08-31] MEDS: CLOPIDOGREL 75 MG TAB PO SCH (09:17)
[2022-08-31] MEDS: ALPRAZolam 0.25 MG TAB PO SCH ×2 (09:17→16:41)
[2022-08-31] MEDS: POTASSIUM CHLORIDE ER 10 MEQ TAB.ER.PRT PO SCH (09:18)
[2022-08-31] MEDS: LOSARTAN 50 MG TAB PO SCH (09:18)
[2022-08-31] MEDS: CHOLECALCIFEROL 125 MCG (5000 IU) TABLET PO SCH (09:18)
[2022-08-31] MEDS: GABAPENTIN 100 MG CAP PO SCH (09:18)
[2022-08-31] MEDS: AMIODARONE 200 MG TAB PO SCH (09:18)
[2022-08-31] MEDS: hydroCHLOROthiazide 25 MG TAB PO SCH (09:18)
[2022-08-31] MEDS ORDERED: LOSARTAN 50 MG TAB PO STA (09:34)
[2022-08-31] MEDS: ACETAMINOPHEN TAB 500 MG TAB PO PRN (10:04)
[2022-08-31] MEDS: cycloSPORINE 0.05% OPHTH 0.4 ML DROPERETTE BOTH EYES SCH ×2 (10:04→20:15)
--- NOTE | 2022-08-31 10:20 | P.PN ---
Subjective Progress Note Date: 08/31/22 Hospital Course: 87-year-old female with a PMH of chronic A. fib, Sjogren's syndrome, fibromyal aniya, IBS, trigeminal neuralgia, diastolic CHF, hypertension, restless leg syndrome, and anxiety presented with complaints of fatigue, diffuse chest discomfort as well as anxiety. EKG in the emergency room revealed sinus rhythm and first-degree AV block at 85 bpm with T-wave flattening in lead V2. CT angiogram of head and neck revealed a 4.1 cm aneurysm of the ascending aorta without dissection. CT brain revealed chronic small vessel disease. Chest x- ray was also unremarkable. Laboratory evaluation was remarkable for troponin 0.025. The patient's blood pressure was also elevated and was 179/92 at the time of evaluation. Cardiology consulted. Started on new antihypertensives. CT abdomen and pelvis - showed no renal artery stenosis, possible mild arthrosclerosis or fibromuscular dysplasia of the mid distal left renal artery. Echo showed normal biventricular systolic function, mild aortic regurgitation, moderate MR, mild pulmonary hypertension, moderate TR. On 08/29 patient had acu te right-sided facial droop, code stroke was called. Head CT without contrast showed no acute changes. Patient does not have any other focal neurological deficits. Neurology consulted. Patient could possibly acute ischemic. MRI pending. Carotid ultrasound shows antegrade flow in the vertebral arteries as well as less than 20% stenosis in both internal carotid arteries. Subjective: Patient seen and examined at bedside. Yesterday afternoon, patient had an acute right facial droop without any other focal neurological deficits. Code stroke was called. Right facial droop now improving. She denies any further chest pain or discomfort. Pertinent positives and negatives as discussed above, a complete review of systems was performed and all other systems are negative. Vitals Signs Reviewed. General: Anxious-appearing female, no distress, appears at stated age, normal weight Derm: no unusual rashes/lesions, warm Head: atraumatic, normocephalic, symmetric Eyes: EOMI, no lid lag, anicteric sclera, pupils equal round reactive to light ENT: Nose and ears atraumatic Neck: No cervical lymphadenopathy, trachea midline, supple Mouth: no lip lesion, mucus membranes moist Cardiovascular: S1S2 reg, no murmur, positive dorsalis pedis pulse bilateral, no edema Lungs: CTA bilateral, no rhonchi, no rales, no accessory muscle use Abdominal: soft, nontender to palpation, no guarding Ext: muscle strength 5 out of 5 in all 4 extremities grossly, no gross muscle atrophy, no contractures, Neuro: Right ptosis, and possible left nasal labial fold weakness Psych: Alert, oriented, anxious affect Assessment and Plan: Acute ischemic stroke Right-sided facial droop Strokelike symptoms -Head CT without contrast negative for any acute process -Neurology consulted for further workup -Patient agreeable with Plavix, started by neurology -Patient also had severe myalgias with 3 different statins, family to consider to ezitimibe -MRI pending -PT/OT Acute chest pain, - now resolved Hypertensive emergency/urgency Elevated troponin Acute anxiety - On telemetry - Cardiology following - Cardiology added Coreg, losartan, hydrochlorothiazide for hypertension -Continue on clonidine - Discontinued Lasix -Echo showed no systolic dysfunction -CT abdomen and pelvis - showed no renal artery stenosis, possible mild arthrosclerosis or fibromuscular dysplasia of the mid distal left renal artery Anxiety -Patient reports taking Xanax 3 times a day at home which did not alleviate her symptoms today -Psychiatry consult -Also added gabapentin, increased Chronic conditions: A. fib, hypertension, diastolic CHF, restless leg syndrome, Sjogren's disease -Continue with home meds DVT ppx: Eliquis Code status: DNR/DNI Anticipated discharge place: Home vs rehab, patient lives home alone Anticipated discharge time: 1-2 days Objective - Vital Signs Vital signs: Vital Signs Temp 97.4 F L 08/31/22 09:28 Pulse 64 08/31/22 09:28 Resp 16 08/31/22 09:28 BP 169/75 08/31/22 09:28 Pulse Ox 99 08/31/22 09:28 FiO2 21 08/30/22 20:37 Intake & Output 08/30/22 08/31/22 08/31/22 18:59 06:59 18:59 Intake Total 885 1420 250 Output Total 550 Balance 885 870 250 Intake: IV 20 10 Invasive Line 1 20 10 Oral 865 1420 240 Output: Urine 550 Other: Voiding Method Toilet Toilet Toilet Bedside Commode Bedside Commode Bedside Commode Diaper Diaper Diaper # Voids 1 2 # Bowel Movements 1 - Labs CBC & Chem 7: 08/29/22 06:32 08/31/22 08:03 Labs: Abnormal Lab Results - Last 24 Hours (Table) 08/29/22 08/31/22 Range/Units 06:32 08:03 Sodium 127 L (137-145) mmol/L Chloride 94 L (98-107) mmol/L Glucose 148 H (74-99) mg/dL HDL Cholesterol 65.00 H (40.00-60.00) mg/dL
--- NOTE | 2022-08-31 11:32 | P.PN ---
Subjective Progress Note Date: 08/31/22 HISTORY OF PRESENT ILLNESS: This is an 87-year-old female past medical history significant for hypertension, dyslipidemia, valvular heart disease and fibromyalgia. She follows in the office with Dr. Antonio. We have been asked to see in consultation for chest pain. Patient states that she came in the hospital because her"blood pressure is crazy." Patient complains of blood pressure being out of control with headache weakness and shakiness. She denies any chest pain but states she's had some pain in her left breast. She thinks her symptoms are due to anxiety. She also states that she lost her balance and fell on Wednesday hurting her left shoulder. She was seen at her PCPs office on Wednesday and shots were given into her shoulder which helped with the pain. Patient states that she has been taking all of her medications as directed. Patient was last seen in the office on 06/12 and recommendations were to stop metoprolol with tapering dose and a Lexiscan Cardiolite stress test which has been scheduled for Wednesday. She was also advised to change dosing of the clonidine patch to every 6 days instead of every 7. Patient presented with a blood pressure of 217/128. She received 2 doses of IV hydralazine and IV fluids and Ativan in the emergency center. Patient is seen today in the emergency center waiting for about on the cardiac stepdown unit. Blood pressure this morning 176/92 DIAGNOSTICS EKG reveals sinus rhythm 2. Chest xray no acute findings CTA of the head and neck revealed a 4.1 cm ascending aortic aneurysm without dissection CAT scan of the brain was negative for new findings Laboratory reviewed, CBC unremarkable, sodium 135, potassium 3.8, creatinine 0.67, magnesium 2.0, cardiac enzymes negative 1, NT proBNP 2320. Electrocardioversion for atrial fibrillation 08/26/2020 Cardiac catheterization 1999 revealed normal coronary arteries and normal left ventricular systolic function Holter monitor 05/30 revealed sinus mechanism with occasional PACs, atrial couplets and triplets and atrial quadruplets. No sustained atrial fibrillation Echocardiogram 05/2022 revealed normal LV function, mild concentric hypertrophy, mild aortic regurgitation, 3-4+ mitral regurgitation, moderate tricuspid regurgitation Current cardiac medications include amiodarone 100 mg daily, eliquis 2.5 mg twice daily, clonidine 0.1 mg patch every 6 days, Lasix 20 mg daily, Lopressor 12.5 mg daily as needed on tapering dose. 08/31/2022 This is an 87-year-old female who follows in the office with Dr. Antonio. Patient admitted to the hospital secondary to uncontrolled hypertension. Patient examined this morning at the bedside. She denies chest pain or pressure. She denies shortness of breath. She reports feeling dizzy. Patient's blood pressure remains elevated morning with a systolic in the 190s. Code stroke was called on the patient yesterday secondary to right facial droop. Neurology following and MRI of the brain ordered today. Telemetry reveals sinus bradycardia. PHYSICAL EXAM: VITAL SIGNS: Reviewed. GENERAL: Well-developed in no acute distress. NECK: Supple. No JVD or thyromegaly LUNGS: Respirations even and unlabored. Lungs essentially clear to auscultation bilaterally. HEART: Regular rate and rhythm. S1 and S2 heard. + systolic murmur. EXTREMITIES: Normal range of motion. No clubbing or cyanosis. Peripheral pulses intact. No lower extremity edema ASSESSMENT: Hypertensive emergency Persistent atrial fibrillation, status post ablation August 2020 Right sided facial droops, rule out CVA, MRI pending Hyperlipidemia, intolerant to statin therapy Valvular heart disease Pulmonary hypertension Anxiety PLAN: Neurology following. Patient scheduled for MRI of the brain today. Continue Eliquis Plavix added per neurology Patient intolerant to statin therapy Increase losartan to 100 mg daily for optimal blood pressure control Continue to monitor blood pressure Further recommendations pending patient's course Nurse practitioner note has been reviewed by physician. Signing provider agrees with the documented findings, assessment, and plan of care. Objective - Vital Signs Vital signs: Vital Signs Temp 97.4 F L 08/31/22 09:28 Pulse 64 08/31/22 09:28 Resp 16 08/31/22 09:28 BP 169/75 08/31/22 09:28 Pulse Ox 99 08/31/22 09:28 FiO2 21 08/30/22 20:37 Intake & Output 08/30/22 08/31/22 08/31/22 18:59 06:59 18:59 Intake Total 885 1420 790 Output Total 550 Balance 885 870 790 Intake: IV 20 10 Invasive Line 1 20 10 Oral 865 1420 780 Output: Urine 550 Other: Voiding Method Toilet Toilet Toilet Bedside Commode Bedside Commode Bedside Commode Diaper Diaper Diaper # Voids 1 2 1 # Bowel Movements 1 - Labs CBC & Chem 7: 08/29/22 06:32 08/31/22 08:03 Labs: Abnormal Lab Results - Last 24 Hours (Table) 08/29/22 08/31/22 Range/Units 06:32 08:03 Sodium 127 L (137-145) mmol/L Chloride 94 L (98-107) mmol/L Glucose 148 H (74-99) mg/dL HDL Cholesterol 65.00 H (40.00-60.00) mg/dL
--- NOTE | 2022-08-31 13:40 | P.PN ---
Progress Note - Text Progress Note Date: 08/31/22 Psychiatry Follow-up Note: Interval History: Patient was found awake in her bed with daughter Monica and son-in-law present in the room. Currently the patient is reporting significant improvement in anxiety. She reports a marked reduction in her internal feelings of tremulousness. She reports the added benefit of pain relief in her hip. She reports overall her mood appears to have been improved considering the recent onset of stroke symptoms. This is confirmed by the patient's daughter who notes that the patient's mood is surprisingly improved given the acute onset of stroke symptoms. She notes improved anxiety and pain symptoms. The patient reports no suicidal or homicidal ideation, intention, and/or plan. She reports fair sleep and fair appetite. She reports no auditory or visual hallucinations. She does report mild dizziness and light-headedness throughout the day. Mental status exam: General Appearance: Patient appears to be well-nourished elderly female with short hair and facial asymmetry/drooping on RIGHT side. Behavior: No agitated behavior. Patient is sitting up in bed trying to drink water as she coughs and water drips from right side of mouth. Speech: Patient's speech is spontaneous, fluent, with mild word finding difficulty. Mood/Affect: Mood is "feeling better," affect appears somnolent but calm. Suicidality/Homicidality: Patient denies having any suicidal or homicidal ideation intent or plan. Perceptions: Patient denies any auditory or visual hallucinations. Though content/process: There is no evidence of any delusional thought content and thought process consists of word finding difficulties but is otherwise generally linear. Memory and concentration: AOX3, grossly intact for the purposes of this session Judgment and insight: fair Vital Signs Temp 97.5 F L 08/31/22 11:29 Pulse 64 08/31/22 11:29 Resp 16 08/31/22 11:29 BP 147/110 08/31/22 11:29 Pulse Ox 99 08/31/22 11:29 FiO2 21 08/30/22 20:37 Intake & Output 08/30/22 08/31/22 08/31/22 18:59 06:59 18:59 Intake Total 885 1420 790 Output Total 550 Balance 885 870 790 Intake: IV 20 10 Invasive Line 1 20 10 Oral 865 1420 780 Output: Urine 550 Other: Voiding Method Toilet Toilet Toilet Bedside Commode Bedside Commode Bedside Commode Diaper Diaper Diaper # Voids 1 2 1 # Bowel Movements 1 Laboratory Results - Last 24 Hours 08/29/22 08/31/22 06:32 08:03 Sodium 127 L Potassium 3.9 Chloride 94 L Carbon Dioxide 27 Anion Gap 6 BUN 10 Creatinine 0.60 Est GFR (CKD-EPI)AfAm >90 Est GFR (CKD-EPI)NonAf 83 Glucose 148 H Calcium 8.5 Magnesium 1.8 Triglycerides 65.40 Cholesterol 160.00 LDL Cholesterol, Calc 81.9 VLDL Cholesterol, Calc 13.08 HDL Cholesterol 65.00 H Cholesterol/HDL Ratio 2.46 IMPRESSIONS: Concern for stroke (RIGHT sided facial dropping, word finding difficulties, slurred speech) Hyponatremia Hypertensive emergency/urgency Elevated Troponin Panic Disorder without agoraphobia Unspecified depressive disorder PLAN: -Continue medical work-up as you are. -At this time patient DOES NOT meet criteria for inpatient psychiatric admission. Patient presents with no imminent risk of harm to self or others. Protective factors include family support, christian beliefs against suicide, and duty to family. -Delirium precautions recommended with patient including - avoiding use of narcotics and INSIDE SALES sedatives, limit anticholinergic medications when possible, frequent re-orientation, minimize use of restraints, open window shades during the day and close them at night -Would recommend the following medication changes/additions: Continue Gabapentin 100 mg in the morning and 300 mg at bedtime for restless leg, neuropathic pain and off-label use for anxiety.Risks, benefits, and treatment alternatives discussed with patient and her family in detail. They would like to continue the medication. Continue her home Xanax 0.125 mg TID for anxiety. Consider tapering and discontinuing this in the future as an outpatient due to the risk of falls with benzodiazepines in the elderly. Patient's family does not wish to make too many changes in regards to psychotropic medications at this time. -Psychiatry will continue to follow loosely while patient is admitted medically in the hospital. However, the patient is cleared psychiatrically for discharge.
[2022-08-31] MEDS ORDERED: hydrALAZINE HCL 20 MG/ML 1 ML VIAL IVP STA (17:23)
--- NOTE | 2022-08-31 20:11 | P.PN ---
Subjective Progress Note Date: 08/31/22 Patient was seen for a follow-up. Patient initially seen by Dr. Ravi Justice. Please refer to his note for details. Patient is a 87-year-old right-handed female with acute CVA of right facial droop, left arm weakness and dysarthria. MRI of the brain is pending. Patient's daughter was also present, but states that her blood pressure has been going up. Her left arm is restless and jumpy. She has weakness in the left side. Patient can physically move her left leg, but not able to bear weight. Her shoulder has no strength. Patient has history of atrial fibrillation, currently on Eliquis. Dr. Justice added Plavix. Patient cannot take statins because of ALLERGY. Objective - Vital Signs Vital signs: Vital Signs Temp 97.9 F 08/31/22 16:45 Pulse 68 08/31/22 18:18 Resp 16 08/31/22 18:18 BP 160/76 08/31/22 18:18 Pulse Ox 96 08/31/22 18:18 FiO2 21 08/30/22 20:37 Intake & Output 08/31/22 08/31/22 09/01/22 06:59 18:59 06:59 Intake Total 1420 1080 Output Total 550 Balance 870 1080 Intake: IV 20 Invasive Line 1 20 Oral 1420 1060 Output: Urine 550 Other: Voiding Method Toilet Toilet Bedside Commode Bedside Commode Diaper Diaper # Voids 2 1 - Exam Patient is an elderly female, in no acute distress. She is slightly restless. She feels an urge to move her left upper limb. Patient is alert awake. Speech and language functions are normal. Patient can name and repeat very well. No aphasia or dysarthria. Attention, concentration and fund of knowledge is adequate. On cranial nerve examination, pupils are equal, round and reacting to light, visual orozco are full on confrontation, with no neglect on double simultaneous stimulation. Extraocular muscles are intact with no nystagmus. Patient has obvious left facial droop. Her tongue protrudes to the midline. Palatal gabriela vation and sensation normal, hearing is slightly decreased and shoulder shrug normal, facial sensation normal. On muscle strength testing, there is left pronator drift. The muscle strength is (right/left) deltoid 5/4-, biceps 5/5, political researcher 5/4, hip flexion 5/5, ankle dorsiflexion 5/5. Sensory to touch is equal with no neglect on double simultaneous stimulation. Cerebellar function showed no ataxia for [id number] testing on either side. Tone and bulk of muscles normal. Gait deferred.. On general examination, there is no carotid bruit or murmur, S1-S2 audible. Chest is clear on consultation. Abdomen is soft nontender. No organomegaly, bowel sounds present. Peripheral pulses are present. No edema. - Labs CBC & Chem 7: 08/29/22 06:32 08/31/22 08:03 Labs: Abnormal Lab Results - Last 24 Hours (Table) 08/31/22 Range/Units 08:03 Sodium 127 L (137-145) mmol/L Chloride 94 L (98-107) mmol/L Glucose 148 H (74-99) mg/dL Assessment and Plan Assessment: Acute ischemic stroke (left facial droop, dysarthria and left upper extremity weakness). Initial NIH 4. No IV TPA since on eliquis. Atrial fibrillation on eliquis status post ablation August 2020 Uncontrolled hypertension Heart failure Right trigemnial neuralgia Sjogren syndrome Restless leg syndrome Old Right hip and knee pain Plan: Await MRI of the brain Carotid duplex revealed antegrade flow in both vertebral arteries. Stenosis is less than 20% in either ICA. 2D-ECHO revealed normal biventricular systolic function, mild aortic insufficiency, moderate mitral regurgitation and mild pulmonary hypertension. Moderate TR. CT angiography of the head and neck that is reported as negative on initial presentation but had strokelike symptoms a day after presentation. Dr. Justice has started patient on Plavix 75mg and not aspirin since patient stated that the she had the side effects to aspirin in past (does not seem like side-effects. Patient currently on Eliquis 2.5 mg 1 tablet twice a day. If patient has a large stroke I recommend to hold eliquis to avoid hemorrhagic conversion. Lipid panel with cholesterol 160, LDL 81, HDL 65 and triglycerides 65.4. Every 4 hours neuro checks On cardiac monitoring Consulted PT OT and MEDICAL SCIENCE LIAISON. Cardiology is on board We'll defer the rest of the medical management to primary team For DVT prophylaxis patient is on Eliquis.
[2022-08-31] MEDS: GABAPENTIN 300 MG CAP PO SCH (20:15)
[2022-09-01] MEDS: ALPRAZolam 0.25 MG TAB PO SCH ×3 (00:50→16:59)
[2022-09-01] MEDS ORDERED: cloNIDine HCL 0.1 MG TAB PO STA (01:14)
[2022-09-01] MEDS: carvediloL 6.25 MG TAB PO SCH ×2 (06:40→16:59)
[2022-09-01] MEDS: LOSARTAN 50 MG TAB PO SCH (07:52)
[2022-09-01] MEDS: GABAPENTIN 100 MG CAP PO SCH (07:52)
[2022-09-01] MEDS: POTASSIUM CHLORIDE ER 10 MEQ TAB.ER.PRT PO SCH (07:52)
[2022-09-01] MEDS: AMIODARONE 200 MG TAB PO SCH (07:52)
[2022-09-01] MEDS: CLOPIDOGREL 75 MG TAB PO SCH (07:52)
[2022-09-01] MEDS: APIXABAN 2.5 MG TABLET PO SCH ×2 (07:52→21:06)
[2022-09-01] MEDS: cycloSPORINE 0.05% OPHTH 0.4 ML DROPERETTE BOTH EYES SCH ×2 (07:53→21:06)
[2022-09-01] MEDS: hydroCHLOROthiazide 25 MG TAB PO SCH (07:53)
[2022-09-01] MEDS: CHOLECALCIFEROL 125 MCG (5000 IU) TABLET PO SCH (07:53)
[2022-09-01] MEDS: OMEPRAZOLE 40 MG PO SCH (07:53)
[2022-09-01 07:55] LABS: African American GFR (CKD) >90 (>60 ml/min/1.73 sqM); Anion Gap 6 mmol/L; Blood Urea Nitrogen 12 mg/dL (7-17); Calcium 8.5 mg/dL (8.4-10.2); Carbon Dioxide 27 mmol/L (22-30); Chloride 91 mmol/L (98-107); Glucose 111 mg/dL (74-99); Non-African American GFR(CKD) 79 (>60 ml/min/1.73 sqM); Potassium 3.9 mmol/L (3.5-5.1); Sodium 124 mmol/L (137-145)
--- NOTE | 2022-09-01 11:36 | P.PN ---
Subjective Progress Note Date: 09/01/22 HISTORY OF PRESENT ILLNESS: This is an 87-year-old female past medical history significant for hypertension, dyslipidemia, valvular heart disease and fibromyalgia. She follows in the office with Dr. Antonio. We have been asked to see in consultation for chest pain. Patient states that she came in the hospital because her"blood pressure is crazy." Patient complains of blood pressure being out of control with headache weakness and shakiness. She denies any chest pain but states she's had some pain in her left breast. She thinks her symptoms are due to anxiety. She also states that she lost her balance and fell on Wednesday hurting her left shoulder. She was seen at her PCPs office on Wednesday and shots were given into her shoulder which helped with the pain. Patient states that she has been taking all of her medications as directed. Patient was last seen in the office on 06/12 and recommendations were to stop metoprolol with tapering dose and a Lexiscan Cardiolite stress test which has been scheduled for Wednesday. She was also advised to change dosing of the clonidine patch to every 6 days instead of every 7. Patient presented with a blood pressure of 217/128. She received 2 doses of IV hydralazine and IV fluids and Ativan in the emergency center. Patient is seen today in the emergency center waiting for about on the cardiac stepdown unit. Blood pressure this morning 176/92 DIAGNOSTICS EKG reveals sinus rhythm 2. Chest xray no acute findings CTA of the head and neck revealed a 4.1 cm ascending aortic aneurysm without dissection CAT scan of the brain was negative for new findings Laboratory reviewed, CBC unremarkable, sodium 135, potassium 3.8, creatinine 0.67, magnesium 2.0, cardiac enzymes negative 1, NT proBNP 2320. Electrocardioversion for atrial fibrillation 08/26/2020 Cardiac catheterization 1999 revealed normal coronary arteries and normal left ventricular systolic function Holter monitor 05/30 revealed sinus mechanism with occasional PACs, atrial couplets and triplets and atrial quadruplets. No sustained atrial fibrillation Echocardiogram 05/2022 revealed normal LV function, mild concentric hypertrophy, mild aortic regurgitation, 3-4+ mitral regurgitation, moderate tricuspid regurgitation Current cardiac medications include amiodarone 100 mg daily, eliquis 2.5 mg twice daily, clonidine 0.1 mg patch every 6 days, Lasix 20 mg daily, Lopressor 12.5 mg daily as needed on tapering dose. 08/31/2022 This is an 87-year-old female who follows in the office with Dr. Antonio. Patient admitted to the hospital secondary to uncontrolled hypertension. Patient examined this morning at the bedside. She denies chest pain or pressure. She denies shortness of breath. She reports feeling dizzy. Patient's blood pressure remains elevated morning with a systolic in the 190s. Code stroke was called on the patient yesterday secondary to right facial droop. Neurology following and MRI of the brain ordered today. Telemetry reveals sinus bradycardia. 09/01/2022 Patient examined this morning at the bedside. Patient's daughter is present. Patient states that she had a bad night overnight and had a lot of pain in her right hip. Patient denies any chest pain or pressure. She denies shortness of breath. Patient's blood pressure remains elevated although improved from yesterday with a systolic in the 160s. She is scheduled for MRI of the brain today. PHYSICAL EXAM: VITAL SIGNS: Reviewed. GENERAL: Well-developed in no acute distress. NECK: Supple. No JVD or thyromegaly LUNGS: Respirations even and unlabored. Lungs essentially clear to auscultation bilaterally. HEART: Regular rate and rhythm. S1 and S2 heard. + systolic murmur. EXTREMITIES: Normal range of motion. No clubbing or cyanosis. Peripheral pulses intact. No lower extremity edema ASSESSMENT: Hypertensive emergency Persistent atrial fibrillation, status post ablation August 2020 Right sided facial droops, rule out CVA, MRI pending Hyperlipidemia, intolerant to statin therapy Valvular heart disease Pulmonary hypertension Anxiety PLAN: Neurology following. Patient scheduled for MRI of the brain today. Continue Eliquis. Plavix added per neurology Patient intolerant to statin therapy Continue current cardiac medications Continue to monitor blood pressure Further recommendations pending patient's course Nurse practitioner note has been reviewed by physician. Signing provider agrees with the documented findings, assessment, and plan of care. Objective - Vital Signs Vital signs: Vital Signs Temp 97.7 F 09/01/22 07:33 Pulse 64 09/01/22 07:33 Resp 18 09/01/22 07:34 BP 168/97 09/01/22 07:33 Pulse Ox 96 09/01/22 07:33 FiO2 21 08/30/22 20:37 Intake & Output 08/31/22 09/01/22 09/01/22 18:59 06:59 18:59 Intake Total 1080 346 Output Total 100 Balance 1080 246 Intake: IV 20 10 Invasive Line 1 20 10 Oral 1060 336 Output: Urine 100 Other: Voiding Method Toilet Toilet Toilet Bedside Commode Bedside Commode Bedside Commode Diaper Diaper Diaper # Voids 1 1 1 - Labs CBC & Chem 7: 08/29/22 06:32 09/01/22 06:22 Labs: Abnormal Lab Results - Last 24 Hours (Table) 09/01/22 Range/Units 06:22 Sodium 124 L (137-145) mmol/L Chloride 91 L (98-107) mmol/L Glucose 111 H (74-99) mg/dL
--- NOTE | 2022-09-01 12:29 | MR ---
EXAMINATION TYPE: MR brain wo con DATE OF EXAM: 09/01/2022 COMPARISON: CT brain from 3 days earlier. HISTORY: Left arm and right facial weakness. TECHNIQUE: Multiplanar, multisequence imaging of the brain and brainstem is performed without IV cont rast. FINDINGS: Diffusion weighted images demonstrate areas of increased signal on diffusion-weighted imaging with di minished signal on ADC mapping involving the deep posterior right frontal lobe at level of harris rad iata image 160 series 303 extending inferiorly to involve the posterior aspect of the right external capsule and basal ganglia showing T2 hyperintensity and T1 hypointensity consistent with evolving acu te infarct. There is background mild to moderate diffuse ventricular and sulcal prominence. There are scattered f ocal and confluent areas of T12 or intensity seen throughout the white matter bilaterally. The lesion s favor product of chronic small vessel ischemic change in patient this age. Involvement in the millicent is noted. Midline structures demonstrate empty sella morphology. The craniocervical junction appears within no rmal limits. Normal vascular flow voids are present. The visualized sinuses are clear and the globes are intact. IMPRESSION: 1. There is acute infarct involving the posterior deep right frontal lobe at level of harris radiata extending inferiorly through the posterior aspect of the right external capsule and basal ganglia. 2. There is background [id number] diffuse cerebral atrophy and moderate to borderline advanced chronic small vessel ischemic change noted. A Yellow level critical message alert has been initiated for Jed Hobbs MD via the [facility] Results System on 09/01/2022 12:26 PM. This message alert has been sent to Jed Hobbs MD vi a the preferences provided by the clinician for the receipt of Radiology Critical Findings. Message I D [id number].
--- NOTE | 2022-09-01 12:34 | P.PN ---
Subjective Progress Note Date: 09/01/22 Hospital Course: 87-year-old female with a PMH of chronic A. fib, Sjogren's syndrome, fibromyal aniya, IBS, trigeminal neuralgia, diastolic CHF, hypertension, restless leg syndrome, and anxiety presented with complaints of fatigue, diffuse chest discomfort as well as anxiety. EKG in the emergency room revealed sinus rhythm and first-degree AV block at 85 bpm with T-wave flattening in lead V2. CT angiogram of head and neck revealed a 4.1 cm aneurysm of the ascending aorta without dissection. CT brain revealed chronic small vessel disease. Chest x- ray was also unremarkable. Laboratory evaluation was remarkable for troponin 0.025. The patient's blood pressure was also elevated and was 179/92 at the time of evaluation. Cardiology consulted. Started on new antihypertensives. CT abdomen and pelvis - showed no renal artery stenosis, possible mild arthrosclerosis or fibromuscular dysplasia of the mid distal left renal artery. Echo showed normal biventricular systolic function, mild aortic regurgitation, moderate MR, mild pulmonary hypertension, moderate TR. On 08/29 patient had acu te right-sided facial droop, code stroke was called. Head CT without contrast showed no acute changes. Patient does not have any other focal neurological deficits. Neurology consulted. Patient could possibly acute ischemic. MRI pending. Carotid ultrasound shows antegrade flow in the vertebral arteries as well as less than 20% stenosis in both internal carotid arteries. Subjective: Patient seemed emotionally labile today. She said that she's having difficulty swallowing as if food is catching in the middle of her throat. Patient was seen by speech therapy and case was discussed with them, they recommended a video swallow study. Patient has no increasing weakness, but continues to have left facial droop. I also discussed the case with patient's daughter at bedside as well as daughter over the phone. We discussed patient's many limitations with medications given her side effects in the past, and I asked whether or not she had tried both generic and brand name versions of statin medications, as it is not known whether patient is ALLERGIC to the active ingredient versus filler ingredients are coating ingredients. MRI is pending at this time Vitals Signs Reviewed. General: Anxious-appearing female, no distress, appears at stated age, normal weight Derm: no unusual rashes/lesions, warm Head: atraumatic, normocephalic, symmetric Eyes: EOMI, no lid lag, anicteric sclera, pupils equal round reactive to light ENT: Nose and ears atraumatic Neck: No cervical lymphadenopathy, trachea midline, supple Mouth: no lip lesion, mucus membranes moist Cardiovascular: S1S2 reg, no murmur, positive dorsalis pedis pulse bilateral, no edema Lungs: CTA bilateral, no rhonchi, no rales, no accessory muscle use Abdominal: soft, nontender to palpation, no guarding Ext: muscle strength 5 out of 5 in all 4 extremities grossly, no gross muscle atrophy, no contractures, Neuro: Right ptosis, and possible left nasal labial fold weakness Psych: Alert, oriented, anxious affect Assessment and Plan: Acute ischemic stroke Right-sided facial droop Strokelike symptoms -Patient also had severe myalgias with 3 different statins, family to consider to ezitimibe -I asked them to review whether patient had been trialed on generic and brand name versions of these medications -patient would be a candidate for evolucimab, would need prior auth from PCP -MRI pending -PT/OT/ST daily assessment -Video swallow study ordered today due to patient feeling food stuck in throat Acute chest pain, - now resolved Hypertensive emergency/urgency Elevated troponin Acute anxiety - Cardiology continued Coreg, losartan, hydrochlorothiazide for hypertension -Continue on clonidine patch 0.3mg q6days -Started clonidine 0.1mg TID PRN for HTN Anxiety -Psychiatry consult note reviewed from 08/31, they increased dose of gabapentin Chronic conditions: A. fib, hypertension, diastolic CHF, restless leg syndrome, Sjogren's disease -Continued with home meds DVT ppx: Eliquis Code status: DNR/DNI Anticipated discharge place: Home vs rehab, patient lives home alone Anticipated discharge time: 1-2 days Objective - Vital Signs Vital signs: Vital Signs Temp 97.7 F 09/01/22 07:33 Pulse 64 09/01/22 07:33 Resp 18 09/01/22 07:34 BP 168/97 09/01/22 07:33 Pulse Ox 96 09/01/22 07:33 FiO2 21 08/30/22 20:37 Intake & Output 08/31/22 09/01/22 09/01/22 18:59 06:59 18:59 Intake Total 1080 346 Output Total 100 Balance 1080 246 Intake: IV 20 10 Invasive Line 1 20 10 Oral 1060 336 Output: Urine 100 Other: Voiding Method Toilet Toilet Toilet Bedside Commode Bedside Commode Bedside Commode Diaper Diaper Diaper # Voids 1 1 1 - Labs CBC & Chem 7: 08/29/22 06:32 09/01/22 06:22 Labs: Abnormal Lab Results - Last 24 Hours (Table) 09/01/22 Range/Units 06:22 Sodium 124 L (137-145) mmol/L Chloride 91 L (98-107) mmol/L Glucose 111 H (74-99) mg/dL
[2022-09-01] MEDS: ACETAMINOPHEN TAB 500 MG TAB PO PRN ×2 (13:06→19:34)
[2022-09-01] MEDS: cloNIDine HCL 0.1 MG TAB PO PRN (21:06)
[2022-09-01] MEDS: GABAPENTIN 300 MG CAP PO SCH (21:06)
[2022-09-02] MEDS: ALPRAZolam 0.25 MG TAB PO SCH ×4 (00:05→23:24)
[2022-09-02] MEDS: cloNIDine HCL 0.1 MG TAB PO PRN (04:41)
--- NOTE | 2022-09-02 05:53 | P.CONS ---
History of Present Illness - Chief Complaint Walking difficulty - History of Present Illness I had the opportunity to see patient for inpatient rehab consultation. Patient admitted to Dr. Hobbs with chest discomfort, restless leg syndrome, abdominal pain with diarrhea and hypertensive emergency. Seen by cardiology for the hypertension. Seen by psychiatry who notes panic and agoraphobia. Seen by neurology, Dr. Ravi Justice who notes right-sided facial weakness and possible stroke. Note initial CT abdomen and pelvis demonstrates left renal cyst only. Brain CT demonstrates mild atrophy and chronic change. Brain MRI demonstrates right frontal and harris radiata extending and underwent external capsule infarct, atrophy and chronic change. Has started therapy. PT reports supervision for bed mobility and unable to sit or stand. OT reports minimal assistance for feeding, moderate assistance for grooming and upper dressing and maximal assistance for lower dressing. Really unable to transfer and fatigues quickly. Speech therapy assess swallowing recommend soft diet and nectar thickened.Dysarthria. Patient really does not like the thickened liquid. Previous functional history as elicited from patient: 87-year-old right-handed white female is lives in one floor home with basement, alone. Describes independent with own cooking, laundry, standing shower and gait with roller walk er. Does not drive. PCP Dr. Rosen. Review of Systems Review of systems: ENT: Denies sneezes or discharge. Eyes: Denies discharge or photophobia. Cardiac: Denies chest pain or palpitation. Pulmonary: Denies cough or shortness of breath. Breast: Denies discharge or lumps. Gastrointestinal: Denies nausea, emesis, constipation, diarrhea. Genitourinary: Denies discharge or frequency. Musculoskeletal: Patient reports pain in right hip and knee which may be long-standing. History of Sjogren syndrome. Neurologic: Reported weakness and sensory loss right face and perhaps right side. Endocrine: Denies shakes or sweats. Oncology: Denies cancers. Dermatologic: Denies rash, itching, pruritus. ALLERGY/immunology: Denies sneezes, rashes. Past Medical History Past Medical History: Atrial Fibrillation, Cancer, Heart Failure, Fibromyalgia, GERD/Reflux, Hypertension, Memory Impairment, Osteoarthritis (OA) Additional Past Medical History / Comment(s): Vertigo, Sjogren's Syndrome, leaky valve, IBS, Trigeminal neuralgia, difficulty swallowing large pills. Bleeds easily. Hx Skin cancer on nose. 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 Restless Leg Syndrome. Pain in right leg and hip (Bone on Bone in right hip). Claustrophobia History of Any Multi-Drug Resistant Organisms: None Reported Past Surgical History: Ablation, Breast Surgery, Cholecystectomy, Hysterectomy, Orthopedic Surgery, Tonsillectomy Additional Past Surgical History / Comment(s): Bilateral knee arthroscopies, right rotator cuff repair, bilateral cataracts removed, right wrist cyst removed, 2 right breast biopies, 1 left breast biopsy. Past Anesthesia/Blood Transfusion Reactions: Motion Sickness Additional Past Anesthesia/Blood Transfusion Reaction / Comm: "A little goes a long way." Past Psychological History: Anxiety Additional Psychological History / Comment(s): seasonal affective disorder. sits under a special lamp Smoking Status: Never smoker Past Alcohol Use History: None Reported Past Drug Use History: None Reported - Past Family History Mother Family Medical History: CVA/TIA Father Family Medical History: Congestive Heart Failure (CHF), Dementia Sister(s) Family Medical History: Cancer Additional Family Medical History / Comment(s): Colon cancer, precancerous breast cancer. Brother(s) Family Medical History: Cancer Additional Family Medical History / Comment(s): Lung cancer. Medications and Allergies Home Medications Medication Instructions Recorded Confirmed Type ALPRAZolam [Xanax] 0.125 mg PO TID 11/10/15 08/28/22 History Dicyclomine HCl 10 mg PO BID PRN 11/10/15 08/28/22 History Omeprazole 40 mg PO AC-BRKFST 11/10/15 08/28/22 History Vit C/E/Zn/Coppr/Lutein/Zeaxan 1 cap PO BID 11/10/15 08/28/22 History [Preservision Areds 2 Softgel] L.acidoph,Paracasei, B.lactis 1 cap PO BID 12/05/15 08/28/22 History [Probiotic] Calcium Citrate 250 mg PO BID 06/02/20 08/28/22 History Calm Magnesium Carbonate 41mg 0.25 tsp PO BID 06/02/20 08/28/22 History Powder Jennifer Supplement 150mg(10mg 1 tab PO BID 06/02/20 08/28/22 History Niacinamide W/10mg Inositol) Meclizine [Antivert] 12.5 mg PO DAILY PRN 06/02/20 08/28/22 History Turmeric/Turmeric Root Extract 1 cap PO DAILY 06/02/20 08/28/22 History [Turmeric 450-50 mg Capsule] Vitamin B Complex 1 cap PO DAILY 06/02/20 08/28/22 History cloNIDine 0.1 MG/24HR PATCH 1 patch TRANSDERM Q6D 06/02/20 08/28/22 History [Catapres-TTS] cycloSPORINE 0.05% OPHTH SOLN 1 drop BOTH EYES BID 06/02/20 08/28/22 History [Restasis] Furosemide [Lasix] 20 mg PO DAILY #20 tab 06/04/20 08/28/22 Rx Potassium Chloride [Potassium 10 meq PO DAILY #30 capsule.er 06/04/20 08/28/22 Rx Chloride ER] Arnica Cream 1 applic TOPICAL HS PRN 06/26/20 08/28/22 History Amiodarone HCl [Pacerone] 100 mg PO DAILY 08/20/20 08/28/22 History Acetaminophen Tab [Tylenol] 325 mg PO Q4H PRN 08/28/22 08/28/22 History Apixaban [Eliquis] 2.5 mg PO BID 08/28/22 08/28/22 History Cholecalciferol [Vitamin D3 (125 125 mcg PO DAILY 08/28/22 08/28/22 History Mcg = 5000 Iu)] Diclofenac Sodium Gel [Voltaren 2 gm TOPICAL QID PRN 08/28/22 08/28/22 History Gel] Metoprolol Tartrate [Lopressor] 12.5 mg PO DAILY PRN 08/28/22 08/28/22 History Allergies Allergy/AdvReac Type Severity Reaction Status Date / Time amlodipine besylate Allergy Unknown Verified 08/28/22 08:31 [From Norvasc] atorvastatin calcium Allergy Unknown Verified 08/28/22 08:31 [From Lipitor] citalopram hydrobromide Allergy Unknown Verified 08/28/22 08:31 [From Celexa] clonazepam [From Klonopin] Allergy Unknown Verified 08/28/22 08:31 lisinopril [From Prinivil] Allergy Unknown Verified 08/28/22 08:31 moxifloxacin HCl Allergy Unknown Verified 08/28/22 08:31 [From Avelox] nitrofurantoin Allergy Unknown Verified 08/28/22 08:31 Penicillins Allergy Unknown Verified 08/28/22 08:31 simvastatin Allergy Unknown Verified 08/28/22 08:31 Sulfa (Sulfonamide Allergy Unknown Verified 08/28/22 08:31 Antibiotics) Tetracyclines Allergy Unknown Verified 08/28/22 08:31 aspirin AdvReac Unknown Verified 08/28/22 08:31 muscle relaxors Allergy Unknown Uncoded 08/27/22 23:56 bandaids AdvReac Skin Uncoded 08/27/22 23:56 isssues Physical Exam Vitals: Vital Signs Temp Pulse Resp BP Pulse Ox 09/02/22 04:00 97.3 F L 61 18 174/95 97 09/02/22 01:48 59 L 18 09/02/22 00:00 98.1 F 59 L 18 164/90 98 09/01/22 20:00 98.1 F 69 20 190/97 96 09/01/22 17:51 98.0 F 76 18 143/76 97 09/01/22 16:57 97.9 F 63 18 164/85 98 09/01/22 12:46 98.0 F 64 18 157/90 97 09/01/22 07:34 18 09/01/22 07:33 97.7 F 64 18 168/97 96 Intake and Output 09/01/22 09/01/22 09/02/22 14:59 22:59 06:59 Intake Total 476 130 10 Output Total 100 Balance 376 130 10 Intake: IV 20 10 10 Invasive Line 1 20 10 10 Oral 456 120 Output: Urine 100 Other: Voiding Method Toilet Toilet Toilet Bedside Commode Bedside Commode Bedside Commode Diaper Diaper Diaper # Voids 1 3 2 Skin: Atrophic, intact. General: 7 build and comfortable appearance. Head: Normocephalic, atraumatic. Eyes: Symmetric. Pupils equal round. Ears: Symmetric. Hearing within normal limits. Mouth: Clear. Neck: Supple. Carotid without bruit. Cardiac: Regular rate and rhythm. Lungs: Clear anteriorly and posteriorly. Abdomen: Soft active nontender. Extremities: Normal tone. Moderate to marked arthritic changes throughout major and minor joints. Neurological: Mental status: Alert, cooperative, pleasant. Cranial nerves: Symmetric facial tone and trapezius. Motor: Able to elevate all 4 limbs off of bed. Sensation: Intact throughout. DTRs: Symmetric and equal throughout. Mobility: Requires physical assist for bed mobility. Results CBC & Chem 7: 08/29/22 06:32 09/01/22 06:22 Labs: Abnormal Lab Results - Last 24 Hours (Table) 09/01/22 Range/Units 06:22 Sodium 124 L (137-145) mmol/L Chloride 91 L (98-107) mmol/L Glucose 111 H (74-99) mg/dL Assessment and Plan (1) Acute ischemic stroke Current Visit: Yes Status: Acute Code(s): I63.9 - CEREBRAL INFARCTION, UNSPECIFIED SNOMED Code(s): 336372862 (2) Debility Current Visit: Yes Status: Acute Code(s): R53.81 - OTHER MALAISE SNOMED Code(s): 59957429 (3) Atrial fibrillation Current Visit: No Status: Acute Code(s): I48.91 - UNSPECIFIED ATRIAL FIBRILLATION SNOMED Code(s): 64692045 (4) Congestive heart failure Current Visit: No Status: Acute Code(s): I50.9 - HEART FAILURE, UNSPECIFIED SNOMED Code(s): 62864473 Plan: Comments and plan: Diagnoses should also include gait disturbance due to stroke result in right hemiparesthesias and dysphagia and Sjogren syndrome. At this time patient endurance to limited for full inpatient rehab. Should begin to consider alternative discharge plan, RUFINO.
[2022-09-02] MEDS: carvediloL 6.25 MG TAB PO SCH (06:13)
[2022-09-02] MEDS ORDERED: SODIUM CHLORIDE 0.9% 1,000 ML IV ONE (07:58)
[2022-09-02] MEDS ORDERED: bisacodyL 10 MG SUPP RECTAL STA (07:59)
[2022-09-02] MEDS: OMEPRAZOLE 40 MG PO SCH (09:06)
[2022-09-02] MEDS: GABAPENTIN 100 MG CAP PO SCH (09:08)
[2022-09-02] MEDS: ACETAMINOPHEN TAB 500 MG TAB PO PRN ×2 (09:29→17:06)
[2022-09-02] MEDS: cycloSPORINE 0.05% OPHTH 0.4 ML DROPERETTE BOTH EYES SCH ×2 (09:30→21:26)
--- NOTE | 2022-09-02 10:28 | P.PN ---
Subjective Progress Note Date: 09/01/22 09/01/2022: Patient was seen for a follow-up. Patient's 2 daughters were also present. They mentioned that patient's symptoms have been fluctuating "up and down". Sometimes she is stronger other times more weaker. Sometimes she is good other times not as good. Patient states that her throat gets pulled up. Sometimes she feels good at the time she feels dizzy, slightly disoriented. She does have headache in the back of the head. When she gets dizzy, she closes her eyes. Patient was seen by speech therapist, and has been recommended nectar thick food, otherwise she chokes. She does have dysarthria. Patient at home used to walk with a roller walker. She lived by herself, and used to drive car, the last time she drove was 2 weeks ago. 08/31/2022: Patient was seen for a follow-up. Patient initially seen by Dr. Ravi Justice. Please refer to his note for details. Patient is a 87-year-old right-handed female with acute CVA of right facial droop, left arm weakness and dysarthria. MRI of the brain is pending. Patient's daughter was also present, but states that her blood pressure has been going up. Her left arm is restless and jumpy. She has weakness in the left side. Patient can physically move her left leg, but not able to bear weight. Her shoulder has no strength. Patient has history of atrial fibrillation, currently on Eliquis. Dr. Justice added Plavix. Patient cannot take statins because of ALLERGY. Objective - Vital Signs Vital signs: Vital Signs Temp 97.9 F 09/02/22 07:33 Pulse 55 L 09/02/22 07:33 Resp 18 09/02/22 08:00 BP 157/68 09/02/22 07:33 Pulse Ox 97 09/02/22 07:33 FiO2 21 08/30/22 20:37 Intake & Output 09/01/22 09/02/22 09/02/22 18:59 06:59 18:59 Intake Total 596 20 180 Output Total 100 Balance 496 20 180 Intake: IV 20 20 Invasive Line 1 20 20 Oral 576 180 Output: Urine 100 Other: Voiding Method Toilet Toilet Bedside Commode Bedside Commode Diaper Diaper # Voids 3 2 - Exam Patient is an elderly female, in no acute distress. She is slightly restless. She feels an urge to move her left upper limb. Patient is alert awake. Speech is mildly dysarthric(also present yesterday but not documented) and language functions are normal. Patient can name and repeat very well. Attention, concentration and fund of knowledge is adequate. On cranial nerve examination, pupils are equal, round and reacting to light, vi sual orozco are full on confrontation, with no neglect on double simultaneous stimulation. Extraocular muscles are intact with no nystagmus. Patient has obvious left facial droop. Her tongue protrudes to the midline. Palatal elevation and sensation normal, hearing is slightly decreased and shoulder shrug normal, facial sensation normal. On muscle strength testing, there is left pronator drift. The muscle strength is (right/left) deltoid/not checked because of pain, biceps 5/5, triceps 5/5, senior controller 5/4, hip flexion 5/4, ankle dorsiflexion 5/5. Sensory to touch is equal with no neglect on double simultaneous stimulation. Cerebellar function showed no ataxia for [id number] testing on either side, although it was difficult to check on the left. Tone and bulk of muscles normal. Gait deferred.. On general examination, there is no carotid bruit or murmur, S1-S2 audible. Chest is clear on consultation. Abdomen is soft nontender. No organomegaly, bowel sounds present. Peripheral pulses are present. No edema. - Labs CBC & Chem 7: 08/29/22 06:32 09/01/22 06:22 Assessment and Plan Assessment: Acute ischemic stroke (left facial droop, dysarthria and left upper extremity weakness). Initial NIH 4. No IV TPA since on eliquis. MRI confirms stroke right subcortical region. Atrial fibrillation on eliquis status post ablation August 2020 Uncontrolled hypertension Heart failure Right trigemnial neuralgia Sjogren syndrome Restless leg syndrome Old Right hip and knee pain Hyperlipidemia Plan: MRI of the brain without contrast revealed acute infarct involving the posterior deep right frontal lobe at the level of harris radiata extending inferiorly to the posterior aspect of the right external capsule and basal ganglia. There is also evidence of mild to moderate diffuse cerebral atrophy and moderate to borderline advanced chronic small vessel ischemic change noted. I personally reviewed MRI, agree with the findings. Also reviewed MRI with the patient's daughters and patient herself. Avoid hypotension. Patient's blood pressure 164/85 at this time. Carotid duplex revealed antegrade flow in both vertebral arteries. Stenosis is less than 20% in either ICA. 2D-ECHO revealed normal biventricular systolic function, mild aortic insufficiency, moderate mitral regurgitation and mild pulmonary hypertension. Moderate TR. CT angiography of the head and neck that is reported as negative on initial presentation but had strokelike symptoms a day after presentation. Continue Plavix 75mg (patient had side effects from aspirin in the past). Patient currently on Eliquis 2.5 mg 1 tablet twice a day. Lipid panel with cholesterol 160, LDL 81, HDL 65 and triglycerides 65.4. Patient has ALLERGIES to Lipitor and Zocor. Every 4 hours neuro checks On cardiac monitoring Consulted PT OT and [employer]. Cardiology is on board We'll defer the rest of the medical management to primary team For DVT prophylaxis patient is on Eliquis. Consult physical medicine and rehab to consider inpatient rehab. Otherwise patient may go to [facility].
--- NOTE | 2022-09-02 10:57 | P.PN ---
Subjective Progress Note Date: 09/02/22 HISTORY OF PRESENT ILLNESS: This is an 87-year-old female past medical history significant for hypertension, dyslipidemia, valvular heart disease and fibromyalgia. She follows in the office with Dr. Antonio. We have been asked to see in consultation for chest pain. Patient states that she came in the hospital because her"blood pressure is crazy." Patient complains of blood pressure being out of control with headache weakness and shakiness. She denies any chest pain but states she's had some pain in her left breast. She thinks her symptoms are due to anxiety. She also states that she lost her balance and fell on Wednesday hurting her left shoulder. She was seen at her PCPs office on Wednesday and shots were given into her shoulder which helped with the pain. Patient states that she has been taking all of her medications as directed. Patient was last seen in the office on 06/12 and recommendations were to stop metoprolol with tapering dose and a Lexiscan Cardiolite stress test which has been scheduled for Wednesday. She was also advised to change dosing of the clonidine patch to every 6 days instead of every 7. Patient presented with a blood pressure of 217/128. She received 2 doses of IV hydralazine and IV fluids and Ativan in the emergency center. Patient is seen today in the emergency center waiting for about on the cardiac stepdown unit. Blood pressure this morning 176/92 DIAGNOSTICS EKG reveals sinus rhythm 2. Chest xray no acute findings CTA of the head and neck revealed a 4.1 cm ascending aortic aneurysm without dissection CAT scan of the brain was negative for new findings Laboratory reviewed, CBC unremarkable, sodium 135, potassium 3.8, creatinine 0.67, magnesium 2.0, cardiac enzymes negative 1, NT proBNP 2320. Electrocardioversion for atrial fibrillation 08/26/2020 Cardiac catheterization 1999 revealed normal coronary arteries and normal left ventricular systolic function Holter monitor 05/30 revealed sinus mechanism with occasional PACs, atrial couplets and triplets and atrial quadruplets. No sustained atrial fibrillation Echocardiogram 05/2022 revealed normal LV function, mild concentric hypertrophy, mild aortic regurgitation, 3-4+ mitral regurgitation, moderate tricuspid regurgitation Current cardiac medications include amiodarone 100 mg daily, eliquis 2.5 mg twice daily, clonidine 0.1 mg patch every 6 days, Lasix 20 mg daily, Lopressor 12.5 mg daily as needed on tapering dose. 08/31/2022 This is an 87-year-old female who follows in the office with Dr. Antonio. Patient admitted to the hospital secondary to uncontrolled hypertension. Patient examined this morning at the bedside. She denies chest pain or pressure. She denies shortness of breath. She reports feeling dizzy. Patient's blood pressure remains elevated morning with a systolic in the 190s. Code stroke was called on the patient yesterday secondary to right facial droop. Neurology following and MRI of the brain ordered today. Telemetry reveals sinus bradycardia. 09/01/2022 Patient examined this morning at the bedside. Patient's daughter is present. Patient states that she had a bad night overnight and had a lot of pain in her right hip. Patient denies any chest pain or pressure. She denies shortness of breath. Patient's blood pressure remains elevated although improved from yesterday with a systolic in the 160s. She is scheduled for MRI of the brain today. 09/02/2022 Patient underwent MRI yesterday revealing acute infarct involving the posterior deep right frontal lobe at the level of the harris radiata extending inferiorly through the posterior aspect of the right external capsule and basal ganglia. Neurology is currently following. Patient examined this point bedside. She is resting comfortably. Her family that the bedside and states that she had a bad night and did not sleep well. The patient was placed on thickened liquids yesterday secondary to dysphasia. According to the family the patient was not d rinking well yesterday as she did not like the thickened liquids. The patient's sodium today is 124. Her hydrochlorothiazide has been discontinued. She is receiving IV fluid bolus per internal medicine. Patient's blood pressure stable with a recent reading of 157/68. PHYSICAL EXAM: VITAL SIGNS: Reviewed. GENERAL: Well-developed in no acute distress. NECK: Supple. No JVD or thyromegaly LUNGS: Respirations even and unlabored. Lungs essentially clear to auscultation bilaterally. HEART: Regular rate and rhythm. S1 and S2 heard. + systolic murmur. EXTREMITIES: Normal range of motion. No clubbing or cyanosis. Peripheral pulses intact. No lower extremity edema ASSESSMENT: Hypertensive emergency Paroxysmal atrial fibrillation, status post ablation August 2020 Right sided facial droop, MRI positive for acute CVA Hyperlipidemia, intolerant to statin therapy Valvular heart disease Pulmonary hypertension Anxiety Hyponatremia PLAN: Neurology following. Continue Eliquis. Plavix added per neurology Patient intolerant to statin therapy Continue current cardiac medications Continue to monitor blood pressure Discontinue PRN antihypertensive medications to ensure current scheduled regimen is effective Hydrochlorothiazide has been placed on hold secondary to hyponatremia Further recommendations pending patient's course Nurse practitioner note has been reviewed by physician. Signing provider agrees with the documented findings, assessment, and plan of care. Objective - Vital Signs Vital signs: Vital Signs Temp 97.9 F 09/02/22 07:33 Pulse 55 L 09/02/22 07:33 Resp 18 09/02/22 08:00 BP 157/68 09/02/22 07:33 Pulse Ox 97 09/02/22 07:33 FiO2 21 08/30/22 20:37 Intake & Output 09/01/22 09/02/22 09/02/22 18:59 06:59 18:59 Intake Total 596 20 180 Output Total 100 Balance 496 20 180 Intake: IV 20 20 Invasive Line 1 20 20 Oral 576 180 Output: Urine 100 Other: Voiding Method Toilet Toilet Bedside Commode Bedside Commode Diaper Diaper # Voids 3 2 - Labs CBC & Chem 7: 08/29/22 06:32 09/01/22 06:22
[2022-09-02] MEDS: APIXABAN 2.5 MG TABLET PO SCH ×2 (11:12→21:26)
[2022-09-02] MEDS: CHOLECALCIFEROL 125 MCG (5000 IU) TABLET PO SCH (11:12)
[2022-09-02] MEDS: CLOPIDOGREL 75 MG TAB PO SCH (11:13)
[2022-09-02] MEDS: POTASSIUM CHLORIDE ER 10 MEQ TAB.ER.PRT PO SCH (11:13)
[2022-09-02] MEDS: AMIODARONE 200 MG TAB PO SCH (11:13)
[2022-09-02] MEDS: LOSARTAN 50 MG TAB PO SCH (11:19)
[2022-09-02] MEDS: polyethylene glycoL 3350 17 GM POWD.PACK PO SCH (11:21)
[2022-09-02] MEDS: SENNOSIDES-DOCUSATE SODIUM 1 EACH TAB PO SCH ×2 (12:55→21:26)
--- NOTE | 2022-09-02 13:59 | P.PN ---
Progress Note - Text Progress Note Date: 09/02/22 Psychiatry Follow-up Note: Interval History: Patient was found awake in her bed with daughter Elsa present. Patient expresses that she has been upset because she could not tolerate her thickened fluids. She reports she became dehydrated and felt uncomfortable because of thi s. She however reports her anxiety appears to be well controlled and her pain in her hip appears better with gabapentin. She reports no suicidal or homicidal ideation, intention, and/or plan. She reports no auditory or visual hallucinations. She denies any paranoia or other delusions. She reports no issues regarding her appetite. She states she enjoys her sleep. She was visited by her [place] director cardiac yesterday and reports feeling better spiritually. Mental status exam: Grossly unchanged from last assessment. General Appearance: Patient appears to be well-nourished elderly female with short hair and facial asymmetry/drooping on RIGHT side. Behavior: No agitated behavior. Patient calmly lying down in bed after eating lunch upright in her chair for 1 hour. Speech: Patient's speech is spontaneous, fluent. Mood/Affect: Mood is "just not feeling too well." affect appears somnolent but calm. Suicidality/Homicidality: Patient denies having any suicidal or homicidal ideation intent or plan. Perceptions: Patient denies any auditory or visual hallucinations. Though content/process: There is no evidence of any delusional thought content and thought process reveals no overt abnormalities. Memory and concentration: AOX3, grossly intact for the purposes of this session Judgment and insight: fair Vital Signs Temp 98.1 F 09/02/22 12:00 Pulse 57 L 09/02/22 12:00 Resp 18 09/02/22 12:00 BP 143/70 09/02/22 12:00 Pulse Ox 97 09/02/22 12:00 FiO2 21 08/30/22 20:37 Intake & Output 09/01/22 09/02/22 09/02/22 18:59 06:59 18:59 Intake Total 596 20 180 Output Total 100 Balance 496 20 180 Intake: IV 20 20 Invasive Line 1 20 20 Oral 576 180 Output: Urine 100 Other: Voiding Method Toilet Toilet Bedside Commode Bedside Commode Bedside Commode Diaper Diaper # Voids 3 2 Laboratory Results - Last 24 Hours 09/01/22 09/01/2209/01/23 06:22 06:22 06:[address] Glu mg/dL 108 Hemoglobin A1c 5.4 Vitamin B12 570.0 Folate 24.30 TSH 4.290 IMPRESSIONS: Concern for stroke (RIGHT sided facial dropping, word finding difficulties, slurred speech) Hyponatremia Hypertensive emergency/urgency Elevated Troponin Panic Disorder without agoraphobia Unspecified depressive disorder PLAN: -Continue medical work-up as you are. -At this time patient DOES NOT meet criteria for inpatient psychiatric admission. Patient presents with no imminent risk of harm to self or others. Protective factors include family support, anabaptist beliefs against suicide, and duty to family. -Delirium precautions recommended with patient including - avoiding use of narcotics and [employer]IST sedatives, limit anticholinergic medications when possible, frequent re-orientation, minimize use of restraints, open window shades during the day and close them at night -Would recommend the following medication changes/additions: Continue Gabapentin 100 mg in the morning and 300 mg at bedtime for restless leg, neuropathic pain and off-label use for anxiety. Continue her home Xanax 0.125 mg TID for anxiety. Consider tapering and d iscontinuing this in the future as an outpatient due to the risk of falls with benzodiazepines in the elderly. Patient's family does not wish to make too many changes in regards to psychotropic medications at this time. -Psychiatry will sign off at this time. Patient is cleared psychiatrically for discharge and is recommended to follow-up in the outpatient setting for psychiatry and primary care.
[2022-09-02 15:05] LABS: African American GFR (CKD) >90 (>60 ml/min/1.73 sqM); Anion Gap 8 mmol/L; Blood Urea Nitrogen 16 mg/dL (7-17); Calcium 8.1 mg/dL (8.4-10.2); Carbon Dioxide 26 mmol/L (22-30); Chloride 88 mmol/L (98-107); Glucose 132 mg/dL (74-99); Non-African American GFR(CKD) 80 (>60 ml/min/1.73 sqM); Potassium 3.9 mmol/L (3.5-5.1); Sodium 122 mmol/L (137-145)
[2022-09-02] MEDS: SODIUM CHLORIDE 0.9% 1,000 ML IV SCH (16:03)
[2022-09-02] MEDS: carvediloL 12.5 MG TAB PO SCH (17:01)
--- NOTE | 2022-09-02 17:32 | P.PN ---
Subjective Progress Note Date: 09/02/22 Hospital Course: 87-year-old female with a PMH of chronic A. fib, Sjogren's syndrome, fibromyal aniya, IBS, trigeminal neuralgia, diastolic CHF, hypertension, restless leg syndrome, and anxiety presented with complaints of fatigue, diffuse chest discomfort as well as anxiety. EKG in the emergency room revealed sinus rhythm and first-degree AV block at 85 bpm with T-wave flattening in lead V2. CT angiogram of head and neck revealed a 4.1 cm aneurysm of the ascending aorta without dissection. CT brain revealed chronic small vessel disease. Chest x- ray was also unremarkable. Laboratory evaluation was remarkable for troponin 0.025. The patient's blood pressure was also elevated and was 179/92 at the time of evaluation. Cardiology consulted. Started on new antihypertensives. CT abdomen and pelvis - showed no renal artery stenosis, possible mild arthrosclerosis or fibromuscular dysplasia of the mid distal left renal artery. Echo showed normal biventricular systolic function, mild aortic regurgitation, moderate MR, mild pulmonary hypertension, moderate TR. On 08/29 patient had acu te right-sided facial droop, code stroke was called. Head CT without contrast showed no acute changes. Patient does not have any other focal neurological deficits. Neurology consulted. Patient could possibly acute ischemic. MRI pending. Carotid ultrasound shows antegrade flow in the vertebral arteries as well as less than 20% stenosis in both internal carotid arteries. Subjective: Patient seemed emotionally labile today. She said that she's having difficulty swallowing as if food is catching in the middle of her throat. Patient was seen by speech therapy and case was discussed with them, they recommended a video swallow study. Patient has no increasing weakness, but continues to have left facial droop. I also discussed the case with patient's daughter at bedside as well as daughter over the phone. We discussed patient's many limitations with medications given her side effects in the past, and I asked whether or not she had tried both generic and brand name versions of statin medications, as it is not known whether patient is ALLERGIC to the active ingredient versus filler ingredients are coating ingredients. MRI is pending at this time Gen: awake, alert HEENT: normocephalic, atraumatic, good hearing acuity, moist mucous membranes Resp: good air exchange, breathing comfortably with no accessory muscle use CVS: good distal perfusion x 4, GI: soft, NTTP, ND : no SPT, no CVAT, castelan catheter not present MSK: no pitting edema, no clubbing Neuro: left facial droop Psych: cooperative, labile mood Assessment and Plan: Acute ischemic stroke Right-sided facial droop Strokelike symptoms -Patient also had severe myalgias with 3 different statins, family to consider to ezitimibe -I asked them to review whether patient had been trialed on generic and brand name versions of these medications, they have only tried generic, I recommended that they asked her PCP for evolucimab -MRI is reviewed and shows right frontal stroke extending into the val radiata -PT/OT/ST daily assessment -Video swallow study ordered yesterday was reviewed and demonstrates no evidence of aspiration, this was discussed with speech therapy who did is advancing liquids back to 10 Acute chest pain, - now resolved Hypertensive emergency/urgency Elevated troponin Acute anxiety Hyponatremia, hypovolemic - Cardiology continued losartan -Coreg was increased to 12.5 mg twice a day -Hydrochlorothiazide were discontinued due to hyponatremia -IV fluids started normal saline of 130 mL per hour -Serum osmolality, urine osmolality to rule out SIADH -Continue on clonidine patch 0.3mg q6days -Started clonidine 0.1mg TID PRN for HTN Anxiety -Psychiatry consult note reviewed from 09/01, they recommended gradual taper of Xanax due to fall risk Chronic conditions: Paroxysmal A. fib, hypertension, diastolic CHF, restless leg syndrome, Sjogren's disease -Continued with home meds DVT ppx: Eliquis Code status: DNR/DNI Anticipated discharge place: Home vs rehab, patient lives home alone Anticipated discharge time: 1-2 days Objective - Vital Signs Vital signs: Vital Signs Temp 98.1 F 09/02/22 12:00 Pulse 57 L 09/02/22 14:00 Resp 18 09/02/22 14:00 BP 143/70 09/02/22 12:00 Pulse Ox 97 09/02/22 12:00 FiO2 21 08/30/22 20:37 Intake & Output 09/01/22 09/02/22 09/02/22 18:59 06:59 18:59 Intake Total 596 20 360 Output Total 100 Balance 496 20 360 Intake: IV 20 20 Invasive Line 1 20 20 Oral 576 360 Output: Urine 100 Other: Voiding Method Toilet Toilet Bedside Commode Bedside Commode Bedside Commode Diaper Diaper # Voids 3 2 - Labs CBC & Chem 7: 08/29/22 06:32 09/02/22 14:17 Labs: Abnormal Lab Results - Last 24 Hours (Table) 09/02/22 09/02/22 Range/Units 14:17 14:17 Sodium 122 L (137-145) mmol/L Chloride 88 L (98-107) mmol/L Glucose 132 H (74-99) mg/dL Osmolality 258 L (280-301) mosm/kg Calcium 8.1 L (8.4-10.2) mg/dL
[2022-09-02 20:55] LABS: African American GFR (CKD) >90 (>60 ml/min/1.73 sqM); Anion Gap 4 mmol/L; Blood Urea Nitrogen 14 mg/dL (7-17); Calcium 8.2 mg/dL (8.4-10.2); Carbon Dioxide 26 mmol/L (22-30); Chloride 95 mmol/L (98-107); Glucose 120 mg/dL (74-99); Non-African American GFR(CKD) 79 (>60 ml/min/1.73 sqM); Potassium 4.1 mmol/L (3.5-5.1); Sodium 125 mmol/L (137-145)
[2022-09-02] MEDS: GABAPENTIN 300 MG CAP PO SCH (21:26)
[2022-09-03] MEDS: ACETAMINOPHEN TAB 500 MG TAB PO PRN (03:28)
[2022-09-03 04:12] LABS: Basophils % (A) 0 %; Eosinophils % (A) 1 %; HCT 34.2 % (34.0-46.0); HGB 11.8 gm/dL (11.4-16.0); Lymphocytes # (A) 0.7 k/uL (1.0-4.8); Lymphocytes % (A) 14 %; MCH 29.7 pg (25.0-35.0); MCHC 34.4 g/dL (31.0-37.0); MCV 86.2 fL (80.0-100.0); Mean Platelet Volume 7.4; Monocytes # (A) 0.3 k/uL (0-1.0); Monocytes % (A) 6 %; Neutrophils # (A) 4.3 k/uL (1.3-7.7); Neutrophils % (A) 78 %; Platelet Count 175 k/uL (150-450); RBC 3.97 m/uL (3.80-5.40); RDW 13.5 % (11.5-15.5); WBC 5.5 k/uL (3.8-10.6)
[2022-09-03 04:33] LABS: African American GFR (CKD) >90 (>60 ml/min/1.73 sqM); Anion Gap 5 mmol/L; Blood Urea Nitrogen 9 mg/dL (7-17); Calcium 8.4 mg/dL (8.4-10.2); Carbon Dioxide 24 mmol/L (22-30); Chloride 103 mmol/L (98-107); Glucose 117 mg/dL (74-99); Non-African American GFR(CKD) 87 (>60 ml/min/1.73 sqM); Potassium 4.2 mmol/L (3.5-5.1); Sodium 132 mmol/L (137-145)
[2022-09-03] MEDS: SODIUM CHLORIDE 0.9% 1,000 ML IV SCH ×2 (06:20→11:51)
[2022-09-03] MEDS: carvediloL 12.5 MG TAB PO SCH (06:20)
--- NOTE | 2022-09-03 06:59 | P.PN ---
Progress Note - Text Therapy notes reviewed: PT reports minimal assist for transfer and gait 2 RW. OT reports minimal assist for feeding, moderate for grooming, upper dress and toileting, maximal assist for lower dress and bathing. Pending patient and family goals would accept for IPR.
--- NOTE | 2022-09-03 07:30 | P.PN ---
Subjective Progress Note Date: 09/02/22 09/02/2022: Patient's daughters 2, and one son in law were present today. Patient continues to have fluctuating weakness of the left side, somewhat stuttering. Sometimes she is stronger, other times she is weaker on the left side. Patient has developed hyponatremia from hydrochlorothiazide, which has been discontinued. Prior to admission, she was on Lasix. Patient is noticing intermittent involuntary movement of the left leg. Her left leg flexes the hip periodically. Patient currently on gabapentin, which is helping with her restless legs syndrome, fibromyalgia and per family, it helps a "calm down". Patient on thickened fluid. Patient has history of urge incontinence in the past. Patient is complaining of numb sensation that she is passing bowels, or even urine. However she does have control of urine. She is using pull-ups, but patient is able to tell about the urge and she can hold it to the bedside commode. Telemetry monitoring showing sinus rhythm, sinus bradycardia currently at 59. 09/01/2022: Patient was seen for a follow-up. Patient's 2 daughters were also present. They mentioned that patient's symptoms have been fluctuating "up and down". Sometimes she is stronger other times more weaker. Sometimes she is good other times not as good. Patient states that her throat gets pulled up. Sometimes she feels good at the time she feels dizzy, slightly disoriented. She does have headache in the back of the head. When she gets dizzy, she closes her eyes. Patient was seen by speech therapist, and has been recommended nectar thick food, otherwise she chokes. She does have dysarthria. Patient at home used to walk with a roller walker. She lived by herself, and used to drive car, the last time she drove was 2 weeks ago. 08/31/2022: Patient was seen for a follow-up. Patient initially seen by Dr. Ravi Justice. Please refer to his note for details. Patient is a 87-year-old right-handed female with acute CVA of right facial droop, left arm weakness and dysarthria. MRI of the brain is pending. Patient's daughter was also present, but states that her blood pressure has been going up. Her left arm is restless and jumpy. She has weakness in the left side. Patient can physically move her left leg, but not able to bear weight. Her shoulder has no strength. Patient has history of atrial fibrillation, currently on Eliquis. Dr. Justice added Plavix. Patient cannot take statins because of ALLERGY. Objective - Vital Signs Vital signs: Vital Signs Temp 98.1 F 09/02/22 12:00 Pulse 57 L 09/02/22 14:00 Resp 18 09/02/22 14:00 BP 143/70 09/02/22 12:00 Pulse Ox 97 09/02/22 12:00 FiO2 21 08/30/22 20:37 Intake & Output 09/01/22 09/02/22 09/02/22 18:59 06:59 18:59 Intake Total 596 20 360 Output Total 100 Balance 496 20 360 Intake: IV 20 20 Invasive Line 1 20 20 Oral 576 360 Output: Urine 100 Other: Voiding Method Toilet Toilet Bedside Commode Bedside Commode Bedside Commode Diaper Diaper # Voids 3 2 - Exam Patient is an elderly female, in no acute distress. She is slightly restless. She has some involuntary movement of her left leg with the left leg jerks. Patient is alert awake. Speech is mildly dysarthric and language functions are normal. Patient can name and repeat very well. Attention, concentration and fund of knowledge is adequate. Her mentation is very clear, concurred by patient's daughters. On cranial nerve examination, pupils are equal, round and reacting to light, visual orozco are full on confrontation, with no neglect on double simultaneous stimulation. Extraocular muscles are intact with no nystagmus. Patient has obvious left facial droop. Her tongue protrudes to the midline. Palatal elevation and sensation normal, hearing is slightly decreased and shoulder shrug normal, facial sensation normal. On muscle strength testing, there is left pronator drift. The muscle strength is (right/left) deltoid/not checked because of pain, biceps 5/4, triceps 5/5, freight sorter 5/4 4-, hip flexion 5/4-, ankle dorsiflexion 5/3-5. Her left ankle dorsiflexion at times appears weaker, but if she holds her he to the ground, then she can give much better effort almost to 5. Sensory to touch is equal with no neglect on double simultaneous stimulation. Cerebellar function showed no ataxia for [id number] testing on either side, although it was difficult to check on the left. Tone and bulk of muscles normal. Gait deferred.. On general examination, there is no carotid bruit or murmur, S1-S2 audible. Chest is clear on consultation. Abdomen is soft nontender. No organomegaly, bowel sounds present. Peripheral pulses are present. No edema. - Labs CBC & Chem 7: 09/03/22 03:46 09/03/22 03:46 Labs: Abnormal Lab Results - Last 24 Hours (Table) 09/02/22 Range/Units 14:17 Sodium 122 L (137-145) mmol/L Chloride 88 L (98-107) mmol/L Glucose 132 H (74-99) mg/dL Calcium 8.1 L (8.4-10.2) mg/dL Assessment and Plan Assessment: Acute ischemic stroke (left facial droop, dysarthria and left upper extremity weakness). Initial NIH 4. No IV TPA since on eliquis. MRI confirms stroke right subcortical region. Patient's left-sided weakness appears to be stuttering, today appears slightly worse. Hyponatremia, likely due to diuretics. Atrial fibrillation on eliquis status post ablation August 2020 Uncontrolled hypertension Heart failure Right trigemnial neuralgia Sjogren syndrome Restless leg syndrome Old Right hip and knee pain Hyperlipidemia Plan: Patient's left hemiparesis is fluctuating. Today slightly seems worse, as compared to yesterday. Patient's blood pressure is slightly high, though in acceptable range. Perhaps need to optimize it lower at this time. Patient high risk for progression of her left hemiparesis. Patient has developed hyponatremia likely from HCTZ. Currently on hold. Follow sodium levels. MRI of the brain without contrast revealed acute infarct involving the posterior deep right frontal lobe at the level of harris radiata extending inferiorly to the posterior aspect of the right external capsule and basal ganglia. There is also evidence of mild to moderate diffuse cerebral atrophy and moderate to borderline advanced chronic small vessel ischemic change noted. I personally reviewed MRI, agree with the findings. Avoid hypotension. Patient's blood pressure 187/96 at this time. May slowly optimize control of blood pressure. Patient is day 6 from acute CVA. Carotid duplex revealed antegrade flow in both vertebral arteries. Stenosis is less than 20% in either ICA. 2D-ECHO revealed normal biventricular systolic function, mild aortic insufficiency, moderate mitral regurgitation and mild pulmonary hypertension. Moderate TR. CT angiography of the head and neck that is reported as negative on initial presentation but had strokelike symptoms a day after presentation. Continue Plavix 75mg (patient had side effects from aspirin in the past). Patient currently on Eliquis 2.5 mg 1 tablet twice a day. Lipid panel with cholesterol 160, LDL 81, HDL 65 and triglycerides 65.4. Patient has ALLERGIES to Lipitor and Zocor. Patient apparently will be a candidate for newer cholesterol medication like Reptha. Every 4 hours neuro checks Telemetry monitoring showing sinus bradycardia in 59. Consulted PT OT and COMBUSTION ANALYST. Cardiology is on board For DVT prophylaxis patient is on Eliquis. Physical medicine and rehab input appreciated. Possible to Ashli.
[2022-09-03] MEDS: LOSARTAN 50 MG TAB PO SCH (08:57)
[2022-09-03] MEDS: SENNOSIDES-DOCUSATE SODIUM 1 EACH TAB PO SCH (08:58)
[2022-09-03] MEDS: ALPRAZolam 0.25 MG TAB PO SCH (08:58)
[2022-09-03] MEDS: AMIODARONE 200 MG TAB PO SCH (08:58)
[2022-09-03] MEDS: POTASSIUM CHLORIDE ER 10 MEQ TAB.ER.PRT PO SCH (08:58)
[2022-09-03] MEDS: CLOPIDOGREL 75 MG TAB PO SCH (08:58)
[2022-09-03] MEDS: APIXABAN 2.5 MG TABLET PO SCH (08:59)
[2022-09-03] MEDS: CHOLECALCIFEROL 125 MCG (5000 IU) TABLET PO SCH (08:59)
[2022-09-03] MEDS: GABAPENTIN 100 MG CAP PO SCH (08:59)
[2022-09-03] MEDS: polyethylene glycoL 3350 17 GM POWD.PACK PO SCH ×2 (09:00→11:54)
[2022-09-03] MEDS ORDERED: hydrALAZINE HCL 25 MG TAB PO SCH (09:00)
[2022-09-03] MEDS: OMEPRAZOLE 40 MG PO SCH (09:05)
--- NOTE | 2022-09-03 09:12 | P.PN ---
Subjective Progress Note Date: 09/03/22 Hospital Course: 87-year-old female with a PMH of chronic A. fib, Sjogren's syndrome, fibromyal aniya, IBS, trigeminal neuralgia, diastolic CHF, hypertension, restless leg syndrome, and anxiety presented with complaints of fatigue, diffuse chest discomfort as well as anxiety. EKG in the emergency room revealed sinus rhythm and first-degree AV block at 85 bpm with T-wave flattening in lead V2. CT angiogram of head and neck revealed a 4.1 cm aneurysm of the ascending aorta without dissection. CT brain revealed chronic small vessel disease. Chest x- ray was also unremarkable. Laboratory evaluation was remarkable for troponin 0.025. The patient's blood pressure was also elevated and was 179/92 at the time of evaluation. Cardiology consulted. Started on new antihypertensives. CT abdomen and pelvis - showed no renal artery stenosis, possible mild arthrosclerosis or fibromuscular dysplasia of the mid distal left renal artery. Echo showed normal biventricular systolic function, mild aortic regurgitation, moderate MR, mild pulmonary hypertension, moderate TR. On 08/29 patient had acu te right-sided facial droop, code stroke was called. Head CT without contrast showed no acute changes. Patient does not have any other focal neurological deficits. Neurology consulted. Patient could possibly acute ischemic. MRI pending. Carotid ultrasound shows antegrade flow in the vertebral arteries as well as less than 20% stenosis in both internal carotid arteries. Subjective: Patient's sodium is improving with IV fluids. She is now medically stable for discharge. She was reevaluated by PMR and now is a candidate for inpatient rehab. Authorization request is now pending. Gen: awake, alert HEENT: normocephalic, atraumatic, good hearing acuity, moist mucous membranes Resp: good air exchange, breathing comfortably with no accessory muscle use CVS: good distal perfusion x 4, GI: soft, NTTP, ND : no SPT, no CVAT, castelan catheter not present MSK: no pitting edema, no clubbing Neuro: left facial droop Psych: cooperative, labile mood Assessment and Plan: Acute ischemic stroke Right-sided facial droop Strokelike symptoms -Patient also had severe myalgias with 3 different statins, family to consider to ezitimibe -I asked them to review whether patient had been trialed on generic and brand name versions of these medications, they have only tried generic, I recommended that they asked her PCP for evolucimab -MRI is reviewed and shows right frontal stroke extending into the val radiata -PT/OT/ST daily assessment -Video swallow study ordered yesterday was reviewed and demonstrates no evidence of aspiration, this was discussed with speech therapy who did is advancing liquids back to 10 Acute chest pain, - now resolved Hypertensive emergency/urgency Elevated troponin Acute anxiety Hyponatremia, hypovolemic - Cardiology continued losartan, I increased it to 150mg daily -Coreg was increased to 25 mg twice a day, half dose of 12.5mg for HR < 55 -Hydrochlorothiazide were discontinued due to hyponatremia -IV fluids started normal saline of 130 mL per hour -Serum osmolality, urine osmolality to rule out SIADH -Continue on clonidine patch 0.3mg q6days -Started clonidine 0.1mg TID PRN for HTN Anxiety -Psychiatry consult note reviewed from 09/01, they recommended gradual taper of Xanax due to fall risk Chronic conditions: Paroxysmal A. fib, hypertension, diastolic CHF, restless leg syndrome, Sjogren's disease -Continued with home meds DVT ppx: Eliquis Code status: DNR/DNI Anticipated discharge place: Home vs rehab, patient lives home alone Anticipated discharge time: 1-2 days Objective - Vital Signs Vital signs: Vital Signs Temp 98.2 F 09/02/22 20:00 Pulse 58 L 09/03/22 03:33 Resp 18 09/03/22 03:33 BP 172/81 09/03/22 03:33 Pulse Ox 99 09/03/22 08:55 FiO2 21 09/02/22 20:20 Intake & Output 09/02/22 09/03/22 09/03/22 18:59 06:59 18:59 Intake Total 540 Output Total 750 Balance -210 Intake: Oral 540 Output: Urine 750 Other: Voiding Method Bedside Commode Bedside Commode # Voids 1 - Labs CBC & Chem 7: 09/03/22 03:46 09/03/22 03:46 Labs: Abnormal Lab Results - Last 24 Hours (Table) 09/02/22 09/02/22 09/02/22 Range/Units 14:17 14:17 20:28 Lymphocytes # (1.0-4.8) k/uL Sodium 122 L 125 L (137-145) mmol/L Chloride 88 L 95 L (98-107) mmol/L Glucose 132 H 120 H (74-99) mg/dL Osmolality 258 L (280-301) mosm/kg Calcium 8.1 L 8.2 L (8.4-10.2) mg/dL 09/03/22 09/03/22 Range/Units 03:46 03:46 Lymphocytes # 0.7 L (1.0-4.8) k/uL Sodium 132 L (137-145) mmol/L Chloride (98-107) mmol/L Glucose 117 H (74-99) mg/dL Osmolality (280-301) mosm/kg Calcium (8.4-10.2) mg/dL
[2022-09-03] MEDS ORDERED: LOSARTAN 50 MG TAB PO ONE (09:15)
[2022-09-03 09:29] VITALS: RESP 20
--- NOTE | 2022-09-03 09:40 | P.PN ---
Subjective Progress Note Date: 09/03/22 HISTORY OF PRESENT ILLNESS: This is an 87-year-old female past medical history significant for hypertension, dyslipidemia, valvular heart disease and fibromyalgia. She follows in the office with Dr. Antonio. We have been asked to see in consultation for chest pain. Patient states that she came in the hospital because her"blood pressure is crazy." Patient complains of blood pressure being out of control with headache weakness and shakiness. She denies any chest pain but states she's had some pain in her left breast. She thinks her symptoms are due to anxiety. She also states that she lost her balance and fell on Wednesday hurting her left shoulder. She was seen at her PCPs office on Wednesday and shots were given into her shoulder which helped with the pain. Patient states that she has been taking all of her medications as directed. Patient was last seen in the office on 06/12 and recommendations were to stop metoprolol with tapering dose and a Lexiscan Cardiolite stress test which has been scheduled for Wednesday. She was also advised to change dosing of the clonidine patch to every 6 days instead of every 7. Patient presented with a blood pressure of 217/128. She received 2 doses of IV hydralazine and IV fluids and Ativan in the emergency center. Patient is seen today in the emergency center waiting for about on the cardiac stepdown unit. Blood pressure this morning 176/92 DIAGNOSTICS EKG reveals sinus rhythm 2. Chest xray no acute findings CTA of the head and neck revealed a 4.1 cm ascending aortic aneurysm without dissection CAT scan of the brain was negative for new findings Laboratory reviewed, CBC unremarkable, sodium 135, potassium 3.8, creatinine 0.67, magnesium 2.0, cardiac enzymes negative 1, NT proBNP 2320. Electrocardioversion for atrial fibrillation 08/26/2020 Cardiac catheterization 1999 revealed normal coronary arteries and normal left ventricular systolic function Holter monitor 05/30 revealed sinus mechanism with occasional PACs, atrial couplets and triplets and atrial quadruplets. No sustained atrial fibrillation Echocardiogram 05/2022 revealed normal LV function, mild concentric hypertrophy, mild aortic regurgitation, 3-4+ mitral regurgitation, moderate tricuspid regurgitation Current cardiac medications include amiodarone 100 mg daily, eliquis 2.5 mg twice daily, clonidine 0.1 mg patch every 6 days, Lasix 20 mg daily, Lopressor 12.5 mg daily as needed on tapering dose. 08/31/2022 This is an 87-year-old female who follows in the office with Dr. Antonio. Patient admitted to the hospital secondary to uncontrolled hypertension. Patient examined this morning at the bedside. She denies chest pain or pressure. She denies shortness of breath. She reports feeling dizzy. Patient's blood pressure remains elevated morning with a systolic in the 190s. Code stroke was called on the patient yesterday secondary to right facial droop. Neurology following and MRI of the brain ordered today. Telemetry reveals sinus bradycardia. 09/01/2022 Patient examined this morning at the bedside. Patient's daughter is present. Patient states that she had a bad night overnight and had a lot of pain in her right hip. Patient denies any chest pain or pressure. She denies shortness of breath. Patient's blood pressure remains elevated although improved from yesterday with a systolic in the 160s. She is scheduled for MRI of the brain today. 09/02/2022 Patient underwent MRI yesterday revealing acute infarct involving the posterior deep right frontal lobe at the level of the harris radiata extending inferiorly through the posterior aspect of the right external capsule and basal ganglia. Neurology is currently following. Patient examined this point bedside. She is resting comfortably. Her family that the bedside and states that she had a bad night and did not sleep well. The patient was placed on thickened liquids yesterday secondary to dysphasia. According to the family the patient was not d rinking well yesterday as she did not like the thickened liquids. The patient's sodium today is 124. Her hydrochlorothiazide has been discontinued. She is receiving IV fluid bolus per internal medicine. Patient's blood pressure stable with a recent reading of 157/68. 09/03/2022 Patient examined this morning the bedside. Patient reports she had a better night yesterday compared to the previous few nights. She denies chest pain or pressure. She denies shortness of breath. She reports feeling somewhat dizzy this morning. Telemetry reveals sinus per the cardia with a heart rate in the 50s to 60s. Patient's blood pressure remains elevated with a systolic in the [id number]. PHYSICAL EXAM: VITAL SIGNS: Reviewed. GENERAL: Well-developed in no acute distress. NECK: Supple. No JVD or thyromegaly LUNGS: Respirations even and unlabored. Lungs essentially clear to auscultation bilaterally. HEART: Regular rate and rhythm. S1 and S2 heard. + systolic murmur. EXTREMITIES: Normal range of motion. No clubbing or cyanosis. Peripheral pulses intact. No lower extremity edema ASSESSMENT: Hypertensive emergency Paroxysmal atrial fibrillation, status post ablation August 2020 Right sided facial droop, MRI positive for acute CVA Hyperlipidemia, intolerant to statin therapy Valvular heart disease Pulmonary hypertension Anxiety Hyponatremia PLAN: Neurology following. Continue Eliquis. Plavix added per neurology Patient intolerant to statin therapy Continue current cardiac medications Continue to monitor blood pressure Continue current dose of carvedilol 12.5mg BID and losartan 100mg daily Add small dose of hydralazine for optimal blood pressure control Hydrochlorothiazide has been placed on hold secondary to hyponatremia Further recommendations pending patient's course Nurse practitioner note has been reviewed by physician. Signing provider agrees with the documented findings, assessment, and plan of care. Objective - Vital Signs Vital signs: Vital Signs Temp 98.2 F 09/02/22 20:00 Pulse 58 L 09/03/22 03:33 Resp 18 09/03/22 03:33 BP 172/81 09/03/22 03:33 Pulse Ox 99 09/03/22 08:55 FiO2 21 09/02/22 20:20 Intake & Output 09/02/22 09/03/22 09/03/22 18:59 06:59 18:59 Intake Total 540 Output Total 750 Balance -210 Intake: Oral 540 Output: Urine 750 Other: Voiding Method Bedside Commode Bedside Commode # Voids 1 - Labs CBC & Chem 7: 09/03/22 03:46 09/03/22 03:46 Labs: Abnormal Lab Results - Last 24 Hours (Table) 09/02/22 09/02/22 09/02/22 Range/Units 14:17 14:17 20:28 Lymphocytes # (1.0-4.8) k/uL Sodium 122 L 125 L (137-145) mmol/L Chloride 88 L 95 L (98-107) mmol/L Glucose 132 H 120 H (74-99) mg/dL Osmolality 258 L (280-301) mosm/kg Calcium 8.1 L 8.2 L (8.4-10.2) mg/dL 09/03/22 09/03/22 Range/Units 03:46 03:46 Lymphocytes # 0.7 L (1.0-4.8) k/uL Sodium 132 L (137-145) mmol/L Chloride (98-107) mmol/L Glucose 117 H (74-99) mg/dL Osmolality (280-301) mosm/kg Calcium (8.4-10.2) mg/dL
--- NOTE | 2022-09-03 10:25 | P.DS ---
Providers Date of admission: 08/31/22 11:22 Expected date of discharge: 09/03/22 Attending physician: Jed Hobbs MD Consults: 08/28/22 02:49 Consult Physician Routine Consulting Provider: [facility] Consult Reason/Comments: chest pain Do you want consulting provider notified?: Yes 08/28/22 02:51 Consult Physician Urgent Consulting Provider: Lio Hickey Consult Reason/Comments: anxiety Do you want consulting provider notified?: Yes 08/30/22 09:50 Consult Physician Routine Consulting Provider: Ravi Justice Consult Reason/Comments: facial droop/ code stroke 08/29/22 Do you want consulting provider notified?: Yes 09/01/22 16:26 Consult Physician Routine Consulting Provider: Ronak Leung Consult Reason/Comments: Acute stroke, ?rehab Do you want consulting provider notified?: Yes Primary care physician: [facility] Course: Acute ischemic stroke Acute chest pain, - now resolved Hypertensive urgency Elevated troponin Acute anxiety Hyponatremia, hypovolemic Anxiety Paroxysmal A. fib Hypertension Chronic Diastolic CHF Restless leg syndrome Sjogren's disease 87-year-old female with a PMH of chronic A. fib, Sjogren's syndrome, fibromyalgia, IBS, trigeminal neuralgia, diastolic CHF, hypertension, restless leg syndrome, and anxiety presented with complaints of fatigue, diffuse chest discomfort as well as anxiety. EKG in the emergency room revealed sinus rhythm and first-degree AV block at 85 bpm with T-wave flattening in lead V2. CT angiogram of head and neck revealed a 4.1 cm aneurysm of the ascending aorta without dissection. CT brain revealed chronic small vessel disease. Chest x- ray was also unremarkable. Laboratory evaluation was remarkable for troponin 0.025. The patient's blood pressure was also elevated and was 179/92 at the time of evaluation. Cardiology consulted. Started on new antihypertensives. CT abdomen and pelvis - showed no renal artery stenosis, possible mild arthrosclerosis or fibromuscular dysplasia of the mid distal left renal artery. Echo showed normal biventricular systolic function, mild aortic regurgitation, moderate MR, mild pulmonary hypertension, moderate TR. On 08/29 patient had acute right-sided facial droop, code stroke was called. Head CT without contrast showed no acute changes. Patient does not have any other focal neurological deficits. Neurology consulted, and they recommended starting Plavix 75 mg daily in addition to patient's home Apixiban. MRI demonstrated findings of right frontal lobe evolving infarct with some involvement of the harris radiata. Carotid ultrasound shows antegrade flow in the vertebral arteries as well as less than 20% stenosis in both internal carotid arteries. During hospitalization, patient had multiple speech evaluation trials as well as video swallow to ensure no evidence of aspiration. Her hydrochlorothiazide had to be discontinued due to dehydration as well as hyponatremia. She received IV fluids and her sodium improved back to 133. Additionally, during hospitalization psychiatry was consulted for anxiety and recommended starting gabapentin 100 mg daily as well as 300 mg at night. They also recommended gradual tapering of Xanax. Patient will be discharged to subacute rehab for further management of debility. She'll follow up with primary care physician, cardiology, neurology. I spent 40 minutes coordinating this complex discharge, discharge date 09/03 Gen: awake, alert HEENT: normocephalic, atraumatic, good hearing acuity, moist mucous membranes Resp: good air exchange, breathing comfortably with no accessory muscle use CVS: good distal perfusion x 4, GI: soft, NTTP, ND : no SPT, no CVAT, castelan catheter not present MSK: no pitting edema, no clubbing Neuro: left facial droop Psych: cooperative, labile mood Patient Condition at Discharge: Good Plan - Discharge Summary Discharge Rx Participant: No New Discharge Prescriptions: New hydrALAZINE HCL [Apresoline] 25 mg PO BID #60 tab polyethylene glycoL 3350 [Miralax] 17 gm PO DAILY packet Simethicone Chew [Mylicon Chew] 80 mg PO QID PRN tab PRN Reason: Abdominal Distention Gabapentin [Neurontin] 100 mg PO DAILY #30 cap carvediloL [Coreg*] 12.5 mg PO BID-W/MEALS #60 tab Losartan [Cozaar] 100 mg PO DAILY #30 tab Gabapentin [Neurontin] 300 mg PO HS #30 cap Clopidogrel [Plavix] 75 mg PO DAILY #30 tab Sennosides-Docusate Sodium [Senokot-S] 1 each PO BID tab Continue ALPRAZolam [Xanax] 0.125 mg PO TID Omeprazole 40 mg PO AC-BRKFST Dicyclomine HCl 10 mg PO BID PRN PRN Reason: IBS Vit C/E/Zn/Coppr/Lutein/Zeaxan [Preservision Areds 2 Softgel] 1 cap PO BID L.acidoph,Paracasei, B.lactis [Probiotic] 1 cap PO BID Meclizine [Antivert] 12.5 mg PO DAILY PRN PRN Reason: Vertigo cloNIDine 0.1 MG/24HR PATCH [Catapres-TTS] 1 patch TRANSDERM Q6D Calm Magnesium Carbonate 41mg Powder 0.25 tsp PO BID cycloSPORINE 0.05% OPHTH SOLN [Restasis] 1 drop BOTH EYES BID Turmeric/Turmeric Root Extract [Turmeric 450-50 mg Capsule] 1 cap PO DAILY Vitamin B Complex 1 cap PO DAILY Calcium Citrate 250 mg PO BID Potassium Chloride [Potassium Chloride ER] 10 meq PO DAILY #30 capsule.er Arnica Cream 1 applic TOPICAL HS PRN PRN Reason: Pain Amiodarone HCl [Pacerone] 100 mg PO DAILY Acetaminophen Tab [Tylenol] 325 mg PO Q4H PRN PRN Reason: Pain Or Fever > 100.5 Apixaban [Eliquis] 2.5 mg PO BID Cholecalciferol [Vitamin D3 (125 Mcg = 5000 Iu)] 125 mcg PO DAILY Diclofenac Sodium Gel [Voltaren Gel] 2 gm TOPICAL QID PRN PRN Reason: Pain Discontinued Jennifer Supplement 150mg(10mg Niacinamide W/10mg Inositol) 1 tab PO BID Furosemide [Lasix] 20 mg PO DAILY #20 tab Metoprolol Tartrate [Lopressor] 12.5 mg PO DAILY PRN PRN Reason: Blood Pressure - High Discharge Medication List ALPRAZolam [Xanax] 0.125 mg PO TID 11/10/15 [History] Dicyclomine HCl 10 mg PO BID PRN 11/10/15 [History] Omeprazole 40 mg PO AC-BRKFST 11/10/15 [History] Vit C/E/Zn/Coppr/Lutein/Zeaxan [Preservision Areds 2 Softgel] 1 cap PO BID 11/10/15 [History] L.acidoph,Paracasei, B.lactis [Probiotic] 1 cap PO BID 12/05/15 [History] Calcium Citrate 250 mg PO BID 06/02/20 [History] Calm Magnesium Carbonate 41mg Powder 0.25 tsp PO BID 06/02/20 [History] Meclizine [Antivert] 12.5 mg PO DAILY PRN 06/02/20 [History] Turmeric/Turmeric Root Extract [Turmeric 450-50 mg Capsule] 1 cap PO DAILY 06/02/20 [History] Vitamin B Complex 1 cap PO DAILY 06/02/20 [History] cloNIDine 0.1 MG/24HR PATCH [Catapres-TTS] 1 patch TRANSDERM Q6D 06/02/20 [History] cycloSPORINE 0.05% OPHTH SOLN [Restasis] 1 drop BOTH EYES BID 06/02/20 [History] Potassium Chloride [Potassium Chloride ER] 10 meq PO DAILY #30 capsule.er 06/04/20 [Rx] Arnica Cream 1 applic TOPICAL HS PRN 06/26/20 [History] Amiodarone HCl [Pacerone] 100 mg PO DAILY 08/20/20 [History] Acetaminophen Tab [Tylenol] 325 mg PO Q4H PRN 08/28/22 [History] Apixaban [Eliquis] 2.5 mg PO BID 08/28/22 [History] Cholecalciferol [Vitamin D3 (125 Mcg = 5000 Iu)] 125 mcg PO DAILY 08/28/22 [History] Diclofenac Sodium Gel [Voltaren Gel] 2 gm TOPICAL QID PRN 08/28/22 [History] Clopidogrel [Plavix] 75 mg PO DAILY #30 tab 09/03/22 [Rx] Gabapentin [Neurontin] 100 mg PO DAILY #30 cap 09/03/22 [Rx] Gabapentin [Neurontin] 300 mg PO HS #30 cap 09/03/22 [Rx] Losartan [Cozaar] 100 mg PO DAILY #30 tab 09/03/22 [Rx] Sennosides-Docusate Sodium [Senokot-S] 1 each PO BID tab 09/03/22 [Rx] Simethicone Chew [Mylicon Chew] 80 mg PO QID PRN tab 09/03/22 [Rx] carvediloL [Coreg*] 12.5 mg PO BID-W/MEALS #60 tab 09/03/22 [Rx] hydrALAZINE HCL [Apresoline] 25 mg PO BID #60 tab 09/03/22 [Rx] polyethylene glycoL 3350 [Miralax] 17 gm PO DAILY packet 09/03/22 [Rx] Follow up Appointment(s)/Referral(s): Sandro Rosen MD [Primary Care Provider] - 1-2 days Discharge Disposition: TRANSFER TO SNF/ECF
[2022-09-03 11:12] LABS: African American GFR (CKD) >90 (>60 ml/min/1.73 sqM); Anion Gap 8 mmol/L; Blood Urea Nitrogen 12 mg/dL (7-17); Calcium 8.2 mg/dL (8.4-10.2); Carbon Dioxide 20 mmol/L (22-30); Chloride 104 mmol/L (98-107); Glucose 118 mg/dL (74-99); Non-African American GFR(CKD) 85 (>60 ml/min/1.73 sqM); Potassium 4.5 mmol/L (3.5-5.1); Sodium 132 mmol/L (137-145)
[2022-09-03 11:42] VITALS: BP 167/86; PULSE 60; TEMP 97.7
[2022-09-03] MEDS: cloNIDine 0.1 MG/24HR PATCH TRANSDERM SCH (11:53)
[2022-09-03] MEDS: cycloSPORINE 0.05% OPHTH 0.4 ML DROPERETTE BOTH EYES SCH (11:53)
--- NOTE | 2022-09-03 11:54 | EEG ---
ELECTROENCEPHALOGRAM REPORT PREAMBLE: This is an 87-year-old female with an acute stroke. The patient is having intermittent involuntary movement of the left arm and left leg. Rule out focal seizures. EEG FINDINGS: This is a 21-channel digital EEG recorded with video component, utilizing 10/20 international system with referential and bipolar montages. Background consists of well developed, well regulated, low voltage activity in mixed frequencies of alpha and some fast frequency beta activity seen in bihemispheric region. Background is posterior dominant and reactive to eye opening and closing. Photic driving response was seen with various flash frequencies. Some drowsiness was seen with appearance of bilaterally symmetric theta frequency rhythm. Deeper stages of sleep were not seen. No focal or generalized epileptiform activity was seen. EKG channel showed no obvious arrhythmia. IMPRESSION: This is a normal awake and drowsy EEG. No focal, lateralized, or epileptiform activity was seen. MMODL / IJN: [id number] /
--- NOTE | 2022-09-03 12:33 | FL ---
Modified barium swallow. HISTORY: Dysphagia. Modified barium swallow was performed with the department of speech pathology. The patient was prese nted with various consistencies of barium. There is no evidence for aspiration or penetration. Full report is to follow from the department of speech pathology. Impression: Normal study.
[2022-09-03] MEDS ORDERED: carvediloL 12.5 MG TAB PO SCH ×2 (17:30)
[2022-09-04] MEDS ORDERED: LOSARTAN 50 MG TAB PO SCH ×2 (09:00)
== END 2022-09-03 14:03 | DRG 65 ==
LOC: EC 23:43 → 6NMEDSUR 08-28 02:49 → 3SCARD 08-28 04:18 → OBSVTOIN 08-31 11:22
PROVIDERS: ADMIT Internal Medicine; ATTEND Internal Medicine
DX: I63.9 Cerebral infarction, unspecified (principal); E87.1 Hypo-osmolality and hyponatremia; G81.94 Hemiplegia, unspecified affecting left nondominant side; I48.19 Other persistent atrial fibrillation; I50.32 Chronic diastolic (congestive) heart failure; I16.1 Hypertensive emergency; F33.9 Major depressive disorder, recurrent, unspecified; I27.20 Pulmonary hypertension, unspecified; E86.0 Dehydration; E86.1 Hypovolemia; E78.5 Hyperlipidemia, unspecified; I11.0 Hypertensive heart disease with heart failure; M35.00 Sjogren syndrome, unspecified; Z66 Do not resuscitate; Z20.822 Contact with and (suspected) exposure to COVID-19; I70.1 Atherosclerosis of renal artery; I71.21 Aneurysm of the ascending aorta, without rupture; R29.810 Facial weakness; R47.1 Dysarthria and anarthria; R29.704 NIHSS score 4; I08.3 Combined rheumatic disorders of mitral, aortic and tricuspid valves; R07.9 Chest pain, unspecified; K58.9 Irritable bowel syndrome, unspecified; G25.81 Restless legs syndrome; F40.01 Agoraphobia with panic disorder; F41.9 Anxiety disorder, unspecified; G50.0 Trigeminal neuralgia; R13.10 Dysphagia, unspecified; R47.02 Dysphasia; G89.29 Other chronic pain; R00.1 Bradycardia, unspecified; I44.0 Atrioventricular block, first degree; N28.1 Cyst of kidney, acquired; N64.4 Mastodynia; H02.401 Unspecified ptosis of right eyelid; T50.2X5A Adverse effect of carbonic-anhydrase inhibitors, benzothiadiazides and other diuretics, initial encounter; K21.9 Gastro-esophageal reflux disease without esophagitis; M19.90 Unspecified osteoarthritis, unspecified site; N39.41 Urge incontinence; R90.82 White matter disease, unspecified; M79.7 Fibromyalgia; M25.512 Pain in left shoulder; M25.551 Pain in right hip; M25.561 Pain in right knee; R77.8 Other specified abnormalities of plasma proteins; R26.2 Difficulty in walking, not elsewhere classified; Z79.01 Long term (current) use of anticoagulants; Z79.899 Other long term (current) drug therapy; Z85.828 Personal history of other malignant neoplasm of skin; Z86.73 Personal history of transient ischemic attack (TIA), and cerebral infarction without residual deficits; Z88.6 Allergy status to analgesic agent; Z88.1 Allergy status to other antibiotic agents; Z88.0 Allergy status to penicillin; Z88.2 Allergy status to sulfonamides; Z88.8 Allergy status to other drugs, medicaments and biological substances; W01.0XXA Fall on same level from slipping, tripping and stumbling without subsequent striking against object, initial encounter; Z82.3 Family history of stroke
CPT/HCPCS: 36415; 70450; 70496; 70498; 70551; 71045; 74174; 74230; 80048; 80053; 80061; 81003; 82607; 82746; 83036; 83605; 83735; 83930; 83935; 84443; 84484; 85025; 85610; 85730; 87635; 87636; 93005; 93306; 93880; 94760; 95816; 96374; 96375; 96376; 99291